=== PATIENT | female | born 1950 | race Caucasian/White ===

== ENCOUNTER 2017-06-25 10:49 | Emergency (ER) | payer BC ==
[2017-06-25] MEDS ORDERED: Sodium Chloride 0.9% 10 ML Syringe FLUSH PRN (11:02)
== END 2017-06-25 10:50 | disposition left against medical advice (07) ==
LOC: JD.ED 10:49
DX: Z53.21 Procedure and treatment not carried out due to patient leaving prior to being seen by health care provider (principal)
CPT/HCPCS: 36415; 70450; 70450-26; 80053; 83880; 85025; 86140; 87040; 93005

== ENCOUNTER 2017-06-25 10:50 | Inpatient (IN) | payer MEDICARE, OTHER ==
[2017-06-25] MEDS ORDERED: Sodium Chloride 0.9% 10 ML Syringe FLUSH PRN (11:15)
--- NOTE | 2017-06-25 11:19 | CT ---
Head CT Technique: Multiple axial sections through the brain were obtained. Intravenous contrast was not utilized. Comparison: No previous intracranial imaging. Findings: Ventricles along with basal cisterns and sulci over the convexities are within normal limits for the patient's age. Mild diminished density is noted within portions of the periventricular white matter which is compatible with small vessel ischemic demyelination change. No other abnormal parenchymal densities are seen. No evidence of intracranial hemorrhage. No midline shift or mass effect is seen. Atherosclerotic calcification is seen within the carotid siphon and within the vertebral vessels. Bone window settings shows the visualized sinuses to appear clear. No acute calvarial abnormality is seen. Impression: 1. Mild senescent change as noted above. Nothing acute is appreciated on noncontrast head CT exam. Diagnostic code #2
[2017-06-25] MEDS ORDERED: Diltiazem 25 MG/5 ML SDV IVPUSH ONE (11:35)
[2017-06-25] MEDS ORDERED: Acetaminophen 650 MG Supp RECTAL ONE (11:41)
[2017-06-25] MEDS ORDERED: cefTRIAXone 2 GM in Sodium Chloride 0.9% 100 ML IV ONE (11:42)
[2017-06-25] MEDS ORDERED: Sodium Chloride 0.9% 1,000 ML IV SCH (11:45)
--- NOTE | 2017-06-25 12:06 | EDM.PDOC ---
ED HPI GENERAL MEDICAL PROBLEM - General Chief Complaint: Neuro Symptoms/Deficits Stated Complaint: [facility] Time Seen by Provider: 06/25/17 11:13 Source of Information: Reports: EMS, Family (), RN Notes Reviewed - History of Present Illness INITIAL COMMENTS - FREE TEXT/NARRATIVE: 66 year old female brought to our ED by [facility] with fever, vomiting, confusion, agitation, concern for possible stroke. Her who has arrived a bit after her states that she became ill yesterday with nausea vomiting not able to eat or drink well. Then last evening she did start becoming confused and had a very restless fitful night. Those symptoms continued and worsened this morning. She has not been able to eat or drink today. On arrival to ED she has very high grade fever. He really is not sure when that started. There has been no diarrhea. The does not tell of her having had chest pain or difficulty breathing or any complaint of headache. He does state that she had similar symptoms about a year ago that resolved very quickly with medial treatment. Treatments PATHOLOGY TEACHER: Reports: Other (see below) Other Treatments PATHOLOGY TEACHER: fluids - Related Data Allergies Allergy/AdvReac Type Severity Reaction Status Date / Time atorvastatin [From Lipitor] Allergy Hives Verified 06/25/17 13:48 dipyridamole Allergy Anaphylactic Verified 06/25/17 13:48 [From Persantine] Shock isosorbide [From Imdur] Allergy Headache Verified 06/25/17 13:48 mold Allergy Airway Verified 06/25/17 13:48 Tightness morphine Allergy Nausea Verified 06/25/17 13:48 nitrofurantoin Allergy Diarrhea Verified 06/25/17 13:48 [From Macrodantin] omeprazole [From Prilosec] Allergy Chills Verified 06/25/17 13:48 Home Meds: Home Meds Albuterol [Proair HFA] 2 puff INH Q4HR PRN 06/25/17 [History] Aspirin 81 mg PO DAILY 06/25/17 [History] Citalopram Hydrobromide [Citalopram HBr] 20 mg PO DAILY 06/25/17 [History] Fluticasone/Salmeterol [Advair 500-50] 1 puff INH BID 06/25/17 [History] Gabapentin [Neurontin] 400 mg PO TID 06/25/17 [History] Hydrocodone/Acetaminophen [Hydrocodon-Acetaminophn 10-325] 1 tab PO Q8H PRN [History] Insulin Glargine,Hum.Rec.Anlog [Lantus Solostar] 16 units SUBCUT DAILY 06/25/17 [History] Insulin Lispro [Humalog Kwikpen U-100] 3 units SUBCUT TID 06/25/17 [History] Liraglutide [Victoza] 0.6 mg SUBCUT DAILY 06/25/17 [History] Lisinopril 20 mg PO DAILY 06/25/17 [History] Metoprolol Succinate 50 mg PO DAILY 06/25/17 [History] Mometasone Furoate [Nasonex] 1 applic CURT DAILY 06/25/17 [History] Montelukast Sodium 10 mg PO DAILY 06/25/17 [History] Omeprazole 20 mg PO DAILY 06/25/17 [History] Ondansetron [Zofran ODT] 4 mg PO Q3H PRN 06/25/17 [History] Triamterene/Hydrochlorothiazid [Triamterene-HCTZ 37.5-25 MG] 0.5 tab PO DAILY [History] amLODIPine Besylate [Amlodipine Besylate] 10 mg PO DAILY 06/25/17 [History] traZODone 100 mg PO DAILY 06/25/17 [History] Past Medical History HEENT History: Reports: Impaired Vision Other HEENT History: wears glasses Endocrine/Metabolic History: Reports: Other (See Below) Other Endocrine/Metabolic History: reported diabetic Social & Family History - Tobacco Use Smoking Status *Q: Unknown Ever Smoked ED ROS GENERAL - Review of Systems Review Of Systems: Unable To Obtain (what information we have is from EMS and from her ) ED EXAM, NEURO - Physical Exam Exam: See Below Exam Limited By: Altered Mental Status General Appearance: Mild Distress, Other (awake, confused) Eye Exam: Bilateral Eye: PERRL Nose: Normal Inspection Throat/Mouth: Other (oral mucosa mildly dry) Head Exam: Atraumatic. No: Facial Swelling Neck: Supple, Other (without JVD) Respiratory/Chest: No Respiratory Distress, Lungs Clear, Normal Breath Sounds. No: Rales, Rhonchi, Wheezing Cardiovascular: Tachycardia GI/Abdominal: Soft, Non-Tender. No: Guarding Neurological: No Motor/Sensory Deficits (she does move her upper and lower extrem, she withdraws both lower extrem to plantar stimulation, question mild L facial droop), Other (awake, does attempt to answer some questions but speech not recognizable at time of initial exam, did not follow commands) Back Exam: No: CVA Tenderness (L), CVA Tenderness (R) Extremities: Pedal Edema (mild bilat). No: Leg Pain, Increased Warmth, Redness Skin Exam: Warm, Dry, Normal Color EKG INTERPRETATION EKG Date: 06/25/17 Rhythm: A-Flutter (rate 132,apparent 2:1 block) QRS: Other (mild conduction delay) ST-T: Other (diffuse nonspecific ST changes) Course - Vital Signs Last Recorded V/S: Last Vital Signs Temp 98.3 F 06/25/17 15:25 Pulse 111 H 06/25/17 17:09 Resp 19 06/25/17 15:25 BP 124/81 06/25/17 17:09 Pulse Ox 91 L 06/25/17 15:25 - Orders/Labs/Meds Orders: Active Orders 24 hr Category Date Time Status Admission Status [Patient Status] [ADT] Routine ADT 06/25/17 14:13 Active EKG 12 Lead [EKG Documentation Completion] [RC] STAT Care 06/25/17 11:15 Active Peripheral IV Care [RC] Q2HR Care 06/25/17 11:15 Active CULTURE BLOOD [BC] Stat Lab 06/25/17 11:17 Ordered CULTURE BLOOD [BC] Stat Lab 06/25/17 11:40 Received CULTURE URINE [RM] Stat Lab 06/25/17 11:20 Received LORazepam [Ativan] Med 06/25/17 12:46 Active 2 mg IVPUSH Q4H PRN Magnesium Rep Pharmacy to Dose [Pharmacy to Dose - Med 06/25/17 13:00 Active Magnesium Replacement] 1 dose .XX ASDIRECTED Metoprolol Tartrate [Lopressor] Med 06/25/17 12:46 Active 5 mg IVPUSH Q4H PRN Potassium Rep Pharmacy to Dose [Pharmacy to Dose - Med 06/25/17 13:00 Active Potassium Replacement] 1 dose .XX ASDIRECTED Sodium Chloride 0.9% [Normal Saline] 1,000 ml Med 06/25/17 11:45 Active IV ONETIME Sodium Chloride 0.9% [Saline Flush] Med 06/25/17 11:15 Active 10 ml FLUSH ASDIRECTED PRN hydrALAZINE [Apresoline] Med 06/25/17 12:46 Active 20 mg IVPUSH Q4H PRN Peripheral IV Insertion Adult [OM.PC] Stat Oth 06/25/17 11:15 Ordered Medication Orders Acetaminophen (Tylenol) 650 mg PO Q4H PRN PRN Reason: Pain (Mild 1-3)/fever Albuterol/Ipratropium (Duoneb 3.0-0.5 Mg/3 Ml) 3 ml NEB Q4H PRN PRN Reason: Shortness Of Breath/wheezing Dextrose/Water (Dextrose 50% In Water) 50 ml IVPUSH ASDIRECTED PRN PRN Reason: Hypoglycemia Hydralazine HCl (Apresoline) 20 mg IVPUSH Q4H PRN PRN Reason: Hypertension Sodium Chloride (Normal Saline) 1,000 mls @ 999 mls/hr IV ONETIME [facility] Last Admin: 06/25/17 11:51 Dose: 999 mls/hr Ceftriaxone Sodium 2 gm/ (Sodium Chloride) 100 mls @ 100 mls/hr IV Q12H [facility] Potassium Chloride 10 meq/ (Premix) 100 mls @ 100 mls/hr IV Q1H [facility] Stop: 06/25/17 22:14 Last Infusion: 06/25/17 17:21 Dose: 50 mls/hr Infusion: 06/25/17 17:19 Dose: 75 mls/hr Admin: 06/25/17 17:13 Dose: 100 mls/hr Dexamethasone 36 mg/ Sodium (Chloride) 53.6 mls @ 107.2 mls/hr IV Q12HR [facility] Stop: 06/27/17 09:29 Vancomycin HCl 1 gm/Vancomycin HCl 250 mg/ Sodium Chloride 250 mls @ 250 mls/ hr IV Q24H [facility] Insulin Aspart (Novolog) 0 unit SUBCUT QIDACANDBED [facility] PRN Reason: Protocol Last Admin: 06/25/17 17:36 Dose: 1 unit Lorazepam (Ativan) 2 mg IVPUSH Q4H PRN PRN Reason: Seizures Magnesium Sulfate (Pharmacy To Dose - Magnesium Replacement) 1 dose .XX ASDIRECTED [facility] Metoprolol Tartrate (Lopressor) 5 mg IVPUSH Q4H PRN PRN Reason: Tachycardia Last Admin: 06/25/17 17:09 Dose: 5 mg Ondansetron HCl (Zofran Odt) 4 mg PO Q6H PRN PRN Reason: nausea, able to take PO Ondansetron HCl (Zofran) 4 mg IV Q6H PRN PRN Reason: Nausea/Vomiting Potassium Chloride (Pharmacy To Dose - Potassium Replacement) 1 dose .XX ASDIRECTED [facility] Sodium Chloride (Saline Flush) 10 ml FLUSH ASDIRECTED PRN PRN Reason: Keep Vein Open Last Admin: 06/25/17 11:52 Dose: 10 ml Vancomycin HCl (Pharmacy To Dose - Vancomycin) 1 dose .XX ASDIRECTED [facility] Labs: Laboratory Tests 06/25/17 06/25/17 06/25/17 Range/Units 11:18 11:18 11:18 WBC 19.73 H (3.98-10.04) K/mm3 RBC 5.09 (3.98-5.22) M/mm3 Hgb 15.0 (11.2-15.7) gm/L Hct 43.5 (34.1-44.9) % MCV 85.5 (79.4-94.8) fl MCH 29.5 (25.6-32.2) pg MCHC 34.5 (32.2-35.5) g/dl RDW Std Deviation 44.5 (36.4-46.3) fL Plt Count 406 H (182-369) K/mm3 MPV 11.6 (9.4-12.3) fl Neut % (Auto) 90.1 H (34.0-71.1) % Lymph % (Auto) 3.8 L (19.3-51.7) % [place] % (Auto) 5.9 (4.7-12.5) % Eos % (Auto) 0 L (0.7-5.8) Baso % (Auto) 0.2 (0.1-1.2) % Neut # (Auto) 17.79 H (1.56-6.13) K/mm3 Lymph # (Auto) 0.74 L (1.18-3.74) K/mm3 [place] # (Auto) 1.16 H (0.24-0.36) K/mm3 Eos # (Auto) 0.00 L (0.04-0.36) K/mm3 Baso # (Auto) 0.04 (0.01-0.08) K/mm3 Manual Slide Review Abnormal smear ESR (0-20) mm/hr Sodium 142 (136-145) mEq/L Potassium 2.7 L (3.5-5.1) mEq/L Chloride 104 (98-107) mEq/L Carbon Dioxide 26 (21-32) mEq/L Anion Gap 14.7 (5-15) BUN 13 (7-18) mg/dL Creatinine 1.2 H (0.55-1.02) mg/dL Est Cr Clr Drug Dosing 35.98 mL/min Estimated GFR (MDRD) 45 (>60) mL/min BUN/Creatinine Ratio 10.8 L (14-18) Glucose 216 H (80-115) mg/dL Hemoglobin A1c 6.50 H (4.50-6.20) % Lactic Acid (0.4-2.0) mmol/L Calcium 8.5 (8.5-10.1) mg/dL C-Reactive Protein (<1.0) mg/dL Free T4 1.52 H (0.76-1.46) ng/dL TSH 3rd Generation 0.153 L (0.358-3.74) uIU/mL Urine Color (Yellow) Urine Appearance (Clear) Urine pH (5.0-8.0) Ur Specific [place] (1.005-1.030) Urine Protein (Negative) Urine Glucose (UA) (Negative) Urine Ketones (Negative) Urine Occult Blood (Negative) Urine Nitrite (Negative) Urine Bilirubin (Negative) Urine Urobilinogen (0.2-1.0) Ur Leukocyte Esterase (Negative) Urine RBC (0-5) /hpf Urine WBC (0-5) /hpf Ur Epithelial Cells (0-5) /hpf Urine Bacteria (FEW) /hpf Urine Mucus (FEW) /hpf Urine Opiates Screen (NEGATIVE) Ur Buprenorphine Scrn (NEGATIVE) Ur Oxycodone Screen (NEGATIVE) Urine Methadone Screen (NEGATIVE) Ur Propoxyphene Screen (NEGATIVE) Ur Barbiturates Screen (NEGATIVE) Ur Tricyclics Screen (NEGATIVE) Ur Phencyclidine Scrn (NEGATIVE) Ur Amphetamine Screen (NEGATIVE) U Methamphetamines Scrn (NEGATIVE) U Benzodiazepines Scrn (NEGATIVE) U Cocaine Metab Screen (NEGATIVE) U Marijuana (THC) Screen (NEGATIVE) 06/25/17 06/25/17 06/25/17 Range/Units 11:18 11:18 11:20 WBC (3.98-10.04) K/mm3 RBC (3.98-5.22) M/mm3 Hgb (11.2-15.7) gm/L Hct (34.1-44.9) % MCV (79.4-94.8) fl MCH (25.6-32.2) pg MCHC (32.2-35.5) g/dl RDW Std Deviation (36.4-46.3) fL Plt Count (182-369) K/mm3 MPV (9.4-12.3) fl Neut % (Auto) (34.0-71.1) % Lymph % (Auto) (19.3-51.7) % [place] % (Auto) (4.7-12.5) % Eos % (Auto) (0.7-5.8) Baso % (Auto) (0.1-1.2) % Neut # (Auto) (1.56-6.13) K/mm3 Lymph # (Auto) (1.18-3.74) K/mm3 [place] # (Auto) (0.24-0.36) K/mm3 Eos # (Auto) (0.04-0.36) K/mm3 Baso # (Auto) (0.01-0.08) K/mm3 Manual Slide Review ESR 76 H (0-20) mm/hr Sodium (136-145) mEq/L Potassium (3.5-5.1) mEq/L Chloride (98-107) mEq/L Carbon Dioxide (21-32) mEq/L Anion Gap (5-15) BUN (7-18) mg/dL Creatinine (0.55-1.02) mg/dL Est Cr Clr Drug Dosing mL/min Estimated GFR (MDRD) (>60) mL/min BUN/Creatinine Ratio (14-18) Glucose (80-115) mg/dL Hemoglobin A1c (4.50-6.20) % Lactic Acid (0.4-2.0) mmol/L Calcium (8.5-10.1) mg/dL C-Reactive Protein 35.5 H* (<1.0) mg/dL Free T4 (0.76-1.46) ng/dL TSH 3rd Generation (0.358-3.74) uIU/mL Urine Color (Yellow) Urine Appearance (Clear) Urine pH (5.0-8.0) Ur Specific [place] (1.005-1.030) Urine Protein (Negative) Urine Glucose (UA) (Negative) Urine Ketones (Negative) Urine Occult Blood (Negative) Urine Nitrite (Negative) Urine Bilirubin (Negative) Urine Urobilinogen (0.2-1.0) Ur Leukocyte Esterase (Negative) Urine RBC (0-5) /hpf Urine WBC (0-5) /hpf Ur Epithelial Cells (0-5) /hpf Urine Bacteria (FEW) /hpf Urine Mucus (FEW) /hpf Urine Opiates Screen Negative (NEGATIVE) Ur Buprenorphine Scrn Negative (NEGATIVE) Ur Oxycodone Screen Presumptive positive H (NEGATIVE) Urine Methadone Screen Negative (NEGATIVE) Ur Propoxyphene Screen Negative (NEGATIVE) Ur Barbiturates Screen Negative (NEGATIVE) Ur Tricyclics Screen Negative (NEGATIVE) Ur Phencyclidine Scrn Negative (NEGATIVE) Ur Amphetamine Screen Negative (NEGATIVE) U Methamphetamines Scrn Negative (NEGATIVE) U Benzodiazepines Scrn Negative (NEGATIVE) U Cocaine Metab Screen Negative (NEGATIVE) U Marijuana (THC) Screen Negative (NEGATIVE) 06/25/17 06/25/17 Range/Units 11:36 11:40 WBC (3.98-10.04) K/mm3 RBC (3.98-5.22) M/mm3 Hgb (11.2-15.7) gm/L Hct (34.1-44.9) % MCV (79.4-94.8) fl MCH (25.6-32.2) pg MCHC (32.2-35.5) g/dl RDW Std Deviation (36.4-46.3) fL Plt Count (182-369) K/mm3 MPV (9.4-12.3) fl Neut % (Auto) (34.0-71.1) % Lymph % (Auto) (19.3-51.7) % [place] % (Auto) (4.7-12.5) % Eos % (Auto) (0.7-5.8) Baso % (Auto) (0.1-1.2) % Neut # (Auto) (1.56-6.13) K/mm3 Lymph # (Auto) (1.18-3.74) K/mm3 [place] # (Auto) (0.24-0.36) K/mm3 Eos # (Auto) (0.04-0.36) K/mm3 Baso # (Auto) (0.01-0.08) K/mm3 Manual Slide Review ESR (0-20) mm/hr Sodium (136-145) mEq/L Potassium (3.5-5.1) mEq/L Chloride (98-107) mEq/L Carbon Dioxide (21-32) mEq/L Anion Gap (5-15) BUN (7-18) mg/dL Creatinine (0.55-1.02) mg/dL Est Cr Clr Drug Dosing mL/min Estimated GFR (MDRD) (>60) mL/min BUN/Creatinine Ratio (14-18) Glucose (80-115) mg/dL Hemoglobin A1c (4.50-6.20) % Lactic Acid 2.0 (0.4-2.0) mmol/L Calcium (8.5-10.1) mg/dL C-Reactive Protein (<1.0) mg/dL Free T4 (0.76-1.46) ng/dL TSH 3rd Generation (0.358-3.74) uIU/mL Urine Color Yellow (Yellow) Urine Appearance Cloudy H (Clear) Urine pH 6.5 (5.0-8.0) Ur Specific [place] 1.025 (1.005-1.030) Urine Protein 2+ H (Negative) Urine Glucose (UA) Negative (Negative) Urine Ketones Negative (Negative) Urine Occult Blood 2+ H (Negative) Urine Nitrite Negative (Negative) Urine Bilirubin Negative (Negative) Urine Urobilinogen 1.0 (0.2-1.0) Ur Leukocyte Esterase Negative (Negative) Urine RBC 10-20 H (0-5) /hpf Urine WBC 50-75 H (0-5) /hpf Ur Epithelial Cells 0-5 (0-5) /hpf Urine Bacteria Many H (FEW) /hpf Urine Mucus Not seen (FEW) /hpf Urine Opiates Screen (NEGATIVE) Ur Buprenorphine Scrn (NEGATIVE) Ur Oxycodone Screen (NEGATIVE) Urine Methadone Screen (NEGATIVE) Ur Propoxyphene Screen (NEGATIVE) Ur Barbiturates Screen (NEGATIVE) Ur Tricyclics Screen (NEGATIVE) Ur Phencyclidine Scrn (NEGATIVE) Ur Amphetamine Screen (NEGATIVE) U Methamphetamines Scrn (NEGATIVE) U Benzodiazepines Scrn (NEGATIVE) U Cocaine Metab Screen (NEGATIVE) U Marijuana (THC) Screen (NEGATIVE) Meds: Medications Generic Name Dose Route Start Last Admin Trade Name Freq PRN Reason Stop Dose Admin Acetaminophen 650 mg 06/25/17 16:27 Tylenol PO Q4H PRN Pain (Mild 1-3)/fever Albuterol/Ipratropium 3 ml 06/25/17 16:27 Duoneb 3.0-0.5 Mg/3 Ml NEB Q4H PRN Shortness Of Breath/wheezing Dextrose/Water 50 ml 06/25/17 16:30 Dextrose 50% In Water IVPUSH ASDIRECTED PRN Hypoglycemia Hydralazine HCl 20 mg 06/25/17 12:46 Apresoline IVPUSH Q4H PRN Hypertension Sodium Chloride 1,000 mls @ 999 mls/hr 06/25/17 11:45 06/25/17 11:51 Normal Saline IV 999 mls/hr ONETIME [facility] Administration Ceftriaxone Sodium 2 gm/ 100 mls @ 100 mls/hr 06/25/17 21:00 Sodium Chloride IV Q12H [facility] Potassium Chloride 10 meq/ 100 mls @ 100 mls/hr 06/25/17 16:15 06/25/17 17:21 Premix IV 06/25/17 22:14 50 mls/hr Q1H [facility] Infusion Dexamethasone 36 mg/ Sodium 53.6 mls @ 107.2 mls/hr 06/25/17 21:00 Chloride IV 06/27/17 09:29 Q12HR [facility] Vancomycin HCl 1 gm/ 250 mls @ 250 mls/hr 06/26/17 16:00 Vancomycin HCl 250 mg/ Sodium IV Chloride Q24H [facility] Insulin Aspart 0 unit 06/25/17 17:00 06/25/17 17:36 Novolog SUBCUT 1 unit QIDACANDBED [facility] Administration Protocol Lorazepam 2 mg 06/25/17 12:46 Ativan IVPUSH Q4H PRN Seizures Magnesium Sulfate 1 dose 06/25/17 13:00 Pharmacy To Dose - Magnesium Replacement .XX ASDIRECTED [facility] Metoprolol Tartrate 5 mg 06/25/17 12:46 06/25/17 17:09 Lopressor IVPUSH 5 mg Q4H PRN Administration Tachycardia Ondansetron HCl 4 mg 06/25/17 16:27 Zofran Odt PO Q6H PRN nausea, able to take PO Ondansetron HCl 4 mg 06/25/17 16:27 Zofran IV Q6H PRN Nausea/Vomiting Potassium Chloride 1 dose 06/25/17 13:00 Pharmacy To Dose - Potassium Replacement .XX ASDIRECTED [facility] Sodium Chloride 10 ml 06/25/17 11:15 06/25/17 11:52 Saline Flush FLUSH 10 ml ASDIRECTED PRN Administration Keep Vein Open Vancomycin HCl 1 dose 06/25/17 16:00 Pharmacy To Dose - Vancomycin .XX ASDIRECTED [facility] Discontinued Medications Generic Name Dose Route Start Last Admin Trade Name Freq PRN Reason Stop Dose Admin Acetaminophen 650 mg 06/25/17 11:41 06/25/17 11:53 Tylenol RECTAL 06/25/17 11:42 650 mg NOW ONE Administration Dexamethasone 36 mg 06/25/17 21:00 Dexamethasone IVPUSH 06/28/17 09:00 Q12HR [facility] Diltiazem HCl 10 mg 06/25/17 11:35 06/25/17 11:51 Diltiazem IVPUSH 06/25/17 11:36 10 mg ONETIME ONE Administration Ceftriaxone Sodium 2 gm/ 100 mls @ 100 mls/hr 06/25/17 11:42 06/25/17 11:54 Sodium Chloride IV 06/25/17 12:41 100 mls/hr ONETIME ONE Administration Ceftriaxone Sodium 2 gm/ 100 mls @ 100 mls/hr 06/26/17 12:00 Sodium Chloride IV Q24H [facility] Vancomycin HCl 1 gm/ 500 mls @ 250 mls/hr 06/25/17 16:15 06/25/17 17:35 Vancomycin HCl 500 mg/ Sodium IV 06/25/17 18:14 250 mls/hr Chloride ONETIME ONE Administration Lorazepam 4 mg 06/25/17 15:41 06/25/17 16:00 Ativan IVPUSH 06/25/17 15:42 2 mg ONETIME ONE Administration - Re-Assessments/Exams Free Text/Narrative Re-Assessment/Exam: 06/25/17 12:05. More hx available when arrived as documented. He states she had similar illness with fever nausea vomiting confusion treated at [facility] that did resolve fairly quickly with medical treatment. It sounds like she started getting sick yesterday and then much worse during the night into this morning. Temp 104.2 on arrival. White blood count quite elevated, CRP also quite elevated. Other labs as documented. Catheter UA was done quite quickly after arrival revealing quite foul very concentrated urine. Presumptive diagnosis was pyelonephritis, rule out sepsis. She did get imediate head CT which was negative for stroke or other acute findings. Patient was treated with 1 L of IV fluid, blood cultures 2 were obtained, lactic acid came back 2.0. UA strongly positive for infection as expected. Rocephin 2 g IV was started shortly after patient arrival. She was given diltiazam 5 mg IV times 2 which did help slow her rate down to 115-120. She was given rectal tylenol for fever. I discussed this with Dr. Clay, Hospitalist who does accept patient for admission. He did initially want a spinal tap done but refuses to sign for that. He wants us to treat the bladder infection, pyelonephritis. He does not want the spinal tap to be done. He does understand that she is very seriously ill but does state repetitively that this is similar to the illness she had at [place], that she responded well to medical treatment provided at that time. He does not want her transferred to [facility]. 13:25. Patient is more alert, less confused, starting to answer some questions. Urine culture also has been ordered. 06/25/17 18:56 Departure - Departure Time of Disposition: 11:45 Disposition: Admitted As Inpatient 65 Condition: Serious Clinical Impression: Pyelonephritis Altered mental status Qualifiers: Altered mental status type: unspecified Qualified Code(s): R41.82 - Altered mental status, unspecified - Discharge Information ED Communication - Discussed Case With (1) Discussed Case With (1): Admitting Provider (Dr Clay, decision to admit at about 11:45) - My Orders Last 24 Hours: My Active Orders 06/25/17 11:15 EKG 12 Lead [EKG Documentation Completion] [RC] STAT Peripheral IV Care [RC] Q2HR Sodium Chloride 0.9% [Saline Flush] 10 ml FLUSH ASDIRECTED PRN Peripheral IV Insertion Adult [OM.PC] Stat 06/25/17 11:17 CULTURE BLOOD [BC] Stat 06/25/17 11:40 CULTURE BLOOD [BC] Stat 06/25/17 11:45 Sodium Chloride 0.9% [Normal Saline] 1,000 ml IV ONETIME 06/25/17 14:13 Admission Status [Patient Status] [ADT] Routine - Assessment/Plan Last 24 Hours: My Active Orders 06/25/17 11:15 EKG 12 Lead [EKG Documentation Completion] [RC] STAT Peripheral IV Care [RC] Q2HR Sodium Chloride 0.9% [Saline Flush] 10 ml FLUSH ASDIRECTED PRN Peripheral IV Insertion Adult [OM.PC] Stat 06/25/17 11:17 CULTURE BLOOD [BC] Stat 06/25/17 11:40 CULTURE BLOOD [BC] Stat 06/25/17 11:45 Sodium Chloride 0.9% [Normal Saline] 1,000 ml IV ONETIME 06/25/17 14:13 Admission Status [Patient Status] [ADT] Routine
--- NOTE | 2017-06-25 12:39 | CR ---
Chest: Frontal view of the chest was obtained. Comparison: No prior chest x-ray. Heart size is slightly enlarged. Tortuous thoracic aorta is seen. Atherosclerotic calcification is noted within the aortic knob. Lungs are clear. Bony structures are grossly intact. Impression: 1. Incidental findings. Nothing acute is seen on frontal chest x-ray. Diagnostic code #2
--- NOTE | 2017-06-25 12:45 | PCM.SN ---
- Free Text/Narrative Note: Patient seen and examined in ED with at bedside. She appeared severely confused and not able to follow simple commands. I expressed concern about meningo-encephalitis since its atypical for someone of her age to be severely encephalopathic with UTI alone. I requested an LP to be done prior to coming to the unit but her refused it. I made it clear to him that by refusing the test, I may not be able to appropriately treat his . also expressed understanding that patient may get worse clinically here and that I may not readily able to transfer her right away to [facility] for upper level of care. We will try to send her to Radiology for brain MRI before she goes to the unit.
[2017-06-25] MEDS ORDERED: LORazepam 2 MG/ML SDV IVPUSH PRN (12:46)
--- NOTE | 2017-06-25 15:15 | PCM.HP ---
H&P History of Present Illness - General Date of Service: 06/25/17 Admit Problem/Dx: Pyelonephritis Source of Information: Patient, EMS, Old Records, Provider, RN, Significant Other History Limitations: Reports: Altered Mental Status (confusion, however does move appropriately when asked. ) - History of Present Illness Initial Comments - Free Text/Narative: Noemi Willams is a 66 yo female presents for ED today via [facility] with complaints of fever, vomiting, confusion, agitation, concern for possible stroke. Her reports that she became ill yesterday with nausea and vomiting and has not been able to eat or drink well. Reports confusion started yesterday evening and she had a very restless night. She had little to eat or drink today. In the ED she's had a high-grade fever. Her is not sure when the fever started. There is been no diarrhea, chest pain, difficulty breathing, headache. reports that she's had similar symptoms about a year ago that resolved quickly with medical treatment at that time she was said to have a UTI. In the ED was 100.4 Fahrenheit. Pulse 132. Respirations 16. Blood pressure 162/105. Pulse ox 94%. 12-lead EKG is obtained which shows a flutter at a rate of 132 with an apparent 2-1 AV block. Also mild conduction delay and diffuse nonspecific ST changes noted. Labs are obtained: WBC is 19.73. Hemoglobin 15. Hematocrit 43.5. She was normocytic. Platelets are elevated at 104,000. Neutrophils are high at 90.1%. Sodium was 139. Potassium is very low at 2.8. Chloride 101. CO2 is 26. Anion gap 14.8. Glucose is 227. BUN is 13. Creatinine 1.2. EGFR is 45. Albumin is low at 2.7. Bilirubin is high at 2.0. Liver enzymes good with ALT at 19, AST at 26, alkaline phosphatase at 113. CRP was very high at 34.7. BNP was very high at 14,508. Lactic acid was 2.0. UA was obtained and had a cloudy appearance. Specific gravity was 1.35. Protein was noted to be 2+. A Harris was 2+. RBCs were 10-20. WBCs were 50- 75. There is many bacteria noted. Leukocyte esterase and nitrite were both negative. She was given 1 L fluid bolus. Blood cultures were obtained. 2 g IV Rocephin was started. A possible spinal tap was explored as symptoms may warrant this, however the refused. Has wants to treat for bladder infection and pyelonephritis as he states she's had this in the past with similar symptoms. Dr. Clay did discuss importance of this with the patient and her and they still refused. It was communicated that she could continue to get worse or need to be transferred to [place] without a spinal tap. Chest x-ray was obtained and interpreted by Dr. Littlejohn as "heart size slightly enlarged. Tortuous thoracic aorta seen. Atherosclerotic calcifications noted within the aortic knob. Lungs are clear. Bony structures are grossly intact." Head CT was obtained and interpeted by Dr. Littlejohn as "mild senescent change, nothing acute." She carries a history of: Fibromyalgia with chronic low back pain, type II DM on insulin, asthma, depression, anxiety, allergic rhinitis, HTN, obesity, obstructive sleep apneais reportedly intolerant of CPAP, chronic insomnia, history of coronary artery stenting, history of inguinal hernia repair on right side. She is a former smoker who quit in 1996. She is subsequently admitted to the ICU.She is a full code. Her PCP is Dr. Dmitriy Pedro in [place]. - Related Data Allergies/Adverse Reactions: Allergies Allergy/AdvReac Type Severity Reaction Status Date / Time atorvastatin [From Lipitor] Allergy Hives Verified 06/25/17 13:48 dipyridamole Allergy Anaphylactic Verified 06/25/17 13:48 [From Persantine] Shock isosorbide [From Imdur] Allergy Headache Verified 06/25/17 13:48 mold Allergy Airway Verified 06/25/17 13:48 Tightness morphine Allergy Nausea Verified 06/25/17 13:48 nitrofurantoin Allergy Diarrhea Verified 06/25/17 13:48 [From Macrodantin] omeprazole [From Prilosec] Allergy Chills Verified 06/25/17 13:48 Home Medications: Home Meds Albuterol [Proair HFA] 2 puff INH Q4HR PRN 06/25/17 [History] Aspirin 81 mg PO DAILY 06/25/17 [History] Citalopram Hydrobromide [Citalopram HBr] 20 mg PO DAILY 06/25/17 [History] Fluticasone/Salmeterol [Advair 500-50] 1 puff INH BID 06/25/17 [History] Gabapentin [Neurontin] 400 mg PO TID 06/25/17 [History] Hydrocodone/Acetaminophen [Hydrocodon-Acetaminophn 10-325] 1 tab PO Q8H PRN [History] Insulin Glargine,Hum.Rec.Anlog [Lantus Solostar] 16 units SUBCUT DAILY 06/25/17 [History] Insulin Lispro [Humalog Kwikpen U-100] 3 units SUBCUT TID 06/25/17 [History] Liraglutide [Victoza] 0.6 mg SUBCUT DAILY 06/25/17 [History] Lisinopril 20 mg PO DAILY 06/25/17 [History] Metoprolol Succinate 50 mg PO DAILY 06/25/17 [History] Mometasone Furoate [Nasonex] 1 applic CURT DAILY 06/25/17 [History] Montelukast Sodium 10 mg PO DAILY 06/25/17 [History] Omeprazole 20 mg PO DAILY 06/25/17 [History] Ondansetron [Zofran ODT] 4 mg PO Q3H PRN 06/25/17 [History] Triamterene/Hydrochlorothiazid [Triamterene-HCTZ 37.5-25 MG] 0.5 tab PO DAILY [History] amLODIPine Besylate [Amlodipine Besylate] 10 mg PO DAILY 06/25/17 [History] traZODone 100 mg PO DAILY 06/25/17 [History] Past Medical History HEENT History: Reports: Impaired Vision Other HEENT History: wears glasses Endocrine/Metabolic History: Reports: Other (See Below) Other Endocrine/Metabolic History: reported diabetic Social & Family History - Tobacco Use Smoking Status *Q: Unknown Ever Smoked H&P Review of Systems - Review of Systems: Review Of Systems: See Below General: Reports: Fever, Chills, Weakness, Fatigue HEENT: Reports: No Symptoms. Denies: Ear Pain, Eye Pain, Headaches, Post Nasal Drip, Sore Throat, Visual Changes Pulmonary: Reports: No Symptoms. Denies: Shortness of Breath, Wheezing, Pleuritic Chest Pain, Cough, Sputum Cardiovascular: Reports: No Symptoms. Denies: Chest Pain, Palpitations, Dyspnea on Exertion Gastrointestinal: Reports: No Symptoms. Denies: Abdominal Pain, Constipation, Diarrhea, Vomiting Genitourinary: Reports: Other (Foul-smelling urine). Denies: Dysuria, Frequency , Burning, Pain, Urgency Musculoskeletal: Reports: Back Pain (Chronic). Denies: Neck Pain, Shoulder Pain , Arm Pain, Leg Pain, Foot Pain Skin: Reports: No Symptoms Psychiatric: Reports: Confusion Neurological: Reports: Confusion. Denies: Headache, Numbness, Paresthesia, Pre- Existing Deficit, Trouble Speaking, Weakness Hematologic/Lymphatic: Reports: No Symptoms Immunologic: Reports: No Symptoms Exam - Exam Exam: See Below - Vital Signs Vital Signs: Last Vital Signs Temp 104.4 F H 06/25/17 11:53 Pulse 132 H 06/25/17 11:29 Resp 16 06/25/17 11:29 BP 162/105 H 06/25/17 11:29 Pulse Ox 94 L 06/25/17 11:29 Weight: 200 lb - Exam Quality Assessment: Other (obease) General: Alert, Cooperative, Mild Distress. No: Oriented HEENT: Conjunctiva Clear, EACs Clear, EOMI, Hearing Intact, Mucosa Moist & [place] , Nares Patent, Normal Nasal Septum, Posterior Pharynx Clear, Pupils Equal, Pupils Reactive, TMs Clear Neck: Supple, Trachea Midline. No: JVD, Thyromegaly Lungs: Clear to Auscultation, Normal Respiratory Effort, Decreased Breath Sounds. No: Rhonchi, Wheezing Cardiovascular: Irregular Rhythm, Tachycardia. No: Regular Rate GI/Abdominal Exam: Normal Bowel Sounds, Soft, Non-Tender, No Organomegaly, No Distention, No Abnormal Bruit, No Mass, Pelvis Stable (Female) Exam: Deferred Rectal (Female) Exam: Deferred Back Exam: Normal Inspection, Decreased Range of Motion. No: CVA Tenderness (L) , CVA Tenderness (R) Extremities: Normal Inspection, Normal Range of Motion, Non-Tender, No Pedal Edema, Normal Capillary Refill, Pedal Edema (trace) Peripheral Pulses: 1+: Posterior Tibial (L), Posterior Tibial (R), Dorsalis Pedis (L), Dorsalis Pedis (R), 2+: Radial (L), Radial (R) Skin: Warm, Dry, Intact Neurological: Cranial Nerves Intact, Strength Equal Bilateral, Sensation Intact Neuro Extensive - Mental Status: Alert Neuro Extensive - Motor, Sensory, Reflexes: Other (Negative Brudzinski and kernig sign ). No: Tongue Deviation (L), Tongue Deviation (R), Dysarthria, Total Aphasia, Facial palsy (L), Facial Palsy (R), Hemeplagia (R), Hemeplagia (L ), Abnormal Sensation, Tremor, Motor/Sensory Deficits Psychiatric: Alert, Normal Affect, Normal Mood - Patient Data Result Diagrams: 06/25/17 11:18 06/25/17 11:18 *Q Meaningful Use (ADM) - VTE *Q VTE Criteria *Q: - Stroke *Q Stroke Criteria *Q: - AMI *Q AMI Criteria *Q: - Problem List (1) Fever SNOMED Code(s): 957632063 ICD Code: R50.9 - FEVER, UNSPECIFIED Status: Acute Priority: High Current Visit: Yes Qualifiers: Fever type: due to other condition Qualified Code(s): R50.81 - Fever presenting with conditions classified elsewhere (2) UTI (urinary tract infection) SNOMED Code(s): 41967531 ICD Code: N39.0 - URINARY TRACT INFECTION, SITE NOT SPECIFIED Status: Acute Priority: High Current Visit: Yes Qualifiers: Urinary tract infection type: acute cystitis Hematuria presence: without hematuria Qualified Code(s): N30.00 - Acute cystitis without hematuria (3) Altered mental status SNOMED Code(s): 772276920 ICD Code: R41.82 - ALTERED MENTAL STATUS, UNSPECIFIED Status: Acute Priority: High Current Visit: Yes Qualifiers: Altered mental status type: unspecified Qualified Code(s): R41.82 - Altered mental status, unspecified (4) Type II diabetes mellitus SNOMED Code(s): 94547961 ICD Code: E11.9 - TYPE 2 DIABETES MELLITUS WITHOUT COMPLICATIONS Status: Chronic Priority: Medium Current Visit: Yes Qualifiers: Diabetes mellitus complication status: without complication Diabetes mellitus usp insulin use: with usp use Qualified Code(s): E11.9 - Type 2 diabetes mellitus without complications; Z79.4 - intermediate project manager (current) use of insulin; Z79.4 - intermediate project manager (current) use of insulin; Z79.4 - intermediate project manager ( current) use of insulin; Z79.4 - [facility] (current) use of insulin (5) Fibromyalgia SNOMED Code(s): 647705335 ICD Code: M79.7 - FIBROMYALGIA Status: Chronic Priority: Low Current Visit: No (6) Asthma SNOMED Code(s): 403553524 ICD Code: J45.909 - UNSPECIFIED ASTHMA, UNCOMPLICATED Status: Chronic Priority: Medium Current Visit: No Qualifiers: Asthma severity: unspecified severity Asthma persistence: unspecified Asthma complication type: unspecified Qualified Code(s): J45.909 - Unspecified asthma, uncomplicated (7) Other specified depressive episodes SNOMED Code(s): 61105581 ICD Code: F32.89 - OTHER SPECIFIED DEPRESSIVE EPISODES Status: Chronic Priority: Low Current Visit: No (8) Anxiety SNOMED Code(s): 92930056 ICD Code: F41.9 - ANXIETY DISORDER, UNSPECIFIED Status: Chronic Priority : Medium Current Visit: No (9) HTN (hypertension) SNOMED Code(s): 48744879 ICD Code: I10 - ESSENTIAL (PRIMARY) HYPERTENSION Status: Chronic Priority : Medium Current Visit: No Qualifiers: Hypertension type: unspecified Qualified Code(s): I10 - Essential (primary ) hypertension (10) Obesity (BMI 30-39.9) SNOMED Code(s): 842437869 ICD Code: E66.9 - OBESITY, UNSPECIFIED Status: Chronic Priority: Low Current Visit: No (11) GURVINDER (obstructive sleep apnea) SNOMED Code(s): 52365252 ICD Code: G47.33 - OBSTRUCTIVE SLEEP APNEA (ADULT) (PEDIATRIC) Status: Chronic Priority: Low Current Visit: No (12) Insomnia SNOMED Code(s): 788786722 ICD Code: G47.00 - INSOMNIA, UNSPECIFIED Status: Chronic Priority: Low Current Visit: No Qualifiers: Insomnia type: unspecified Qualified Code(s): G47.00 - Insomnia, unspecified (13) Elevated brain natriuretic peptide (BNP) level SNOMED Code(s): 184605307 ICD Code: R79.89 - OTHER SPECIFIED ABNORMAL FINDINGS OF BLOOD CHEMISTRY Status: Acute Current Visit: Yes Problem List Initiated/Reviewed/Updated: Yes Orders Last 24hrs: Active Orders 24 hr Category Date Time Status A1C [GLYCOSYLATED HEMOGLOBIN,HGBA1C] [CHEM] Routine Lab 06/25/17 11:18 Received DRUG SCREEN, URINE [URCHEM] Routine Lab 06/25/17 14:36 Ordered RESPIRATORY PANEL BY PCR [MREF] Stat Lab 06/25/17 14:37 Ordered Medication Orders Hydralazine HCl (Apresoline) 20 mg IVPUSH Q4H PRN PRN Reason: Hypertension Sodium Chloride (Normal Saline) 1,000 mls @ 999 mls/hr IV ONETIME KVNG Last Admin: 06/25/17 11:51 Dose: 999 mls/hr Lorazepam (Ativan) 2 mg IVPUSH Q4H PRN PRN Reason: Seizures Magnesium Sulfate (Pharmacy To Dose - Magnesium Replacement) 1 dose .XX ASDIRECTED [facility] Metoprolol Tartrate (Lopressor) 5 mg IVPUSH Q4H PRN PRN Reason: Tachycardia Potassium Chloride (Pharmacy To Dose - Potassium Replacement) 1 dose .XX ASDIRECTED [facility] Sodium Chloride (Saline Flush) 10 ml FLUSH ASDIRECTED PRN PRN Reason: Keep Vein Open Last Admin: 06/25/17 11:52 Dose: 10 ml Assessment/Plan Comment:: I/P: UTI -History of 4 UTIs over past 3 years - last 12/16/16 and was hospitalized in [place] -Similar symptoms with all episodes per -Fever (104.4), confusion, agitation, foul smelling urine, Tachycardia -Rocephin started in ED - continue -UA not very impressive, Negative leukocyte esterase, nitrite. -Many bacteria - culture ordered -No costophrenic angle tenderness -WBC 19.50, CRP 34.7 AMS - reports worsening confusion and concern over possible stroke over past day - also reports pt. has hx/o AMS with prior UTIs -CT in ED negative for acute findings -MRI ordered for 06/26/17 -? UTI symptoms vs. meningococcal encephalopathy - refused LP in ED -Will order viral/bacterial/fungal workup -Culture blood, culture urine, group B strep, herpes screen, RPR, respiratory panel, strep pneumonia, toxoplasma gondii -Nursing bedside swallow screen -NETWORKING TECHNICIAN swallow evaluation -Rocephin and vancomycin -Contact precautions -NPO for now untill swallow eval/mentation improves -Dexamethasone Renal insufficiency -Unsure of baseline -Creatinine 1.2 -BUN 13 -eGFR 45 -Caution with nephrotoxic medications Elevated BNP -Does not appear to have CHF history although on lasix for edema per old notes -BNP 10110 in ED -Diurese with caution due to renal insufficiency -Echo in AM -Monitor Chronic: Fibromyalgia Chronic low back pain Type II DM on insulin- continue home meds, sliding scale insulin, 4 times a day before meals and bedtime glucose checks. Asthma Depression Anxiety HTN Obesity GURVINDER - does not tolerate CPAP Insomnia CAD with hx/o stenting Right sided inguinal hernia repair Plan: Admit to ICU Other orders as indicated above CM for discharge planning Home medications as ordered pending swallow evals Routine AM labs Hold off PT/OT for now until lab results return/mentation improves DVT Prophylaxis: NAHED glass Code Status: Full code; PCP: Dr. Pedro in [place].
[2017-06-25] MEDS ORDERED: LORazepam 2 MG/ML SDV IVPUSH ONE (15:41)
[2017-06-25] MEDS ORDERED: Vancomycin 1 GM, Vancomycin 500 MG in Sodium Chloride 0.9% 500 ML IV ONE (16:15)
[2017-06-25] MEDS ORDERED: Albuterol/Ipratropium 3.0-0.5 MG/3 ML Neb Soln NEB PRN (16:27)
[2017-06-25] MEDS ORDERED: Acetaminophen 325 MG Tab PO PRN (16:27)
[2017-06-25] MEDS ORDERED: Ondansetron 4 MG Tab.DIS PO PRN (16:27)
[2017-06-25] MEDS ORDERED: Ondansetron 4 MG/2 ML SDV IV PRN (16:27)
[2017-06-25] MEDS ORDERED: 50% Dextrose in Water 50 ML Syringe IVPUSH PRN (16:30)
[2017-06-25] MEDS: Metoprolol Tartrate 5 MG/5 ML SDV IVPUSH PRN ×2 (17:09→21:10)
[2017-06-25] MEDS: Potassium Chloride 10 MEQ in Premix Bag 1 BAG IV SCH ×6 (17:13→23:17)
[2017-06-25] MEDS: Insulin Aspart 100 Units/ML 3 ML Pen SUBCUT SCH ×2 (17:36→21:49)
[2017-06-25] MEDS ORDERED: Acetaminophen 650 MG Supp RECTAL PRN (19:47)
[2017-06-25] MEDS: LORazepam 2 MG/ML SDV IVPUSH PRN (20:30)
[2017-06-25] MEDS: cefTRIAXone 2 GM in Sodium Chloride 0.9% 100 ML IV SCH (20:36)
[2017-06-25] MEDS ORDERED: methylPREDNISolone Sodium Succinate 125 MG/2 ML SDV IVPUSH ONE (20:43)
[2017-06-25] MEDS ORDERED: Magnesium Sulfate/Water 2 GM in Premix Bag 1 BAG IV ONE (20:46)
[2017-06-25] MEDS ORDERED: Diltiazem 125 MG in Sodium Chloride 0.9% 100 ML IV SCH (21:00)
[2017-06-25] MEDS ORDERED: Non-Formulary Medication 1 Each (Fluticasone/Salmeterol 1 PUFF) INH SCH (21:00)
[2017-06-25] MEDS ORDERED: Dexamethasone 10 MG/ML SDV IVPUSH SCH (21:00)
[2017-06-25] MEDS ORDERED: INSULIN LISPRO 3 UNIT SUBCUT SCH (21:00)
[2017-06-25] MEDS: SODIUM CHLORIDE 0.9% IV SCH (21:08)
[2017-06-25] MEDS: DEXAMETHASONE IV SCH (21:08)
[2017-06-25] MEDS ORDERED: Insulin Aspart 100 Units/ML 3 ML Pen SUBCUT SCH (21:45)
[2017-06-25] MEDS ORDERED: Furosemide 20 MG/2 ML VIAL IVPUSH ONE (22:10)
[2017-06-25] MEDS: Formoterol/Mometasone 200-5 MCG 8.8 GM Inhaler IH SCH (23:56)
[2017-06-26] MEDS: LORazepam 2 MG/ML SDV IVPUSH PRN ×3 (00:30→21:51)
[2017-06-26] MEDS ORDERED: methylPREDNISolone Sodium Succinate 125 MG/2 ML SDV IVPUSH SCH (02:00)
[2017-06-26] MEDS: hydrALAZINE 20 MG/ML SDV IVPUSH PRN ×2 (04:28→10:12)
[2017-06-26] MEDS: Formoterol/Mometasone 200-5 MCG 8.8 GM Inhaler IH SCH ×2 (05:48→21:00)
[2017-06-26] MEDS: Insulin Aspart 100 Units/ML 3 ML Pen SUBCUT SCH ×4 (06:25→21:20)
[2017-06-26] MEDS ORDERED: Diphtheria,Pertussis(Acell),Tetanus Vaccine 0.5 ML SDV IM ONE (07:19)
[2017-06-26] MEDS: Potassium Chloride 10 MEQ in Premix Bag 1 BAG IV SCH ×4 (07:46→13:55)
[2017-06-26] MEDS ORDERED: Piperacillin/Tazobactam 4.5 GM in Sodium Chloride 0.9% 100 ML IV ONE (08:00)
--- NOTE | 2017-06-26 08:03 | PCM.PN ---
- General Info Date of Service: 06/26/17 Admission Dx/Problem (Free Text): Pyelonephritis Subjective Update: In to see Noemi. She is alert but not responding to me. She is also quite warm. Her blood cultures came back 07/17 with gram negative rods. Her urine shows gram negative rods also. She was sent to MRI today and sedated for the procedure. No results yet. She does not respond to questions or allow for examination. Will add zosyn to regimen. Awaiting multiple lab results. She did have a episode of hypoxia/low oxygen saturations last night. This has resolved. She also had a period of tachycardia and was started on a Cardizem drip. This has since resolved as well. Functional Status: Reports: Urinating - Review of Systems Systems Review Comment:: Patient is alert however does not respond to my questions or exam. She does feel warm to touch. She has a much more pronounced altered mental status than on my examination yesterday. Did talk with and he has nothing to add. Unable to obtain a review of systems from the patient. - Patient Data Vitals - Most Recent: Last Vital Signs Temp 98.4 F 06/26/17 06:00 Pulse 115 H 06/26/17 06:47 Resp 33 H 06/26/17 06:00 BP 143/89 H 06/26/17 06:47 Pulse Ox 94 L 06/26/17 06:00 Weight - Most Recent: 223 lb I&O - Last 24 Hours: Intake & Output 06/25/17 06/26/17 06/26/17 22:59 06:59 14:59 Intake Total 1075 0 Output Total 345 1525 95 Balance -345 -450 -95 Lab Results Last 24 Hours: Laboratory Results - last 24 hr 06/25/17 06/25/17 06/26/17 Range/Units 17:27 21:35 05:46 WBC 22.15 H (3.98-10.04) K/mm3 RBC 5.11 (3.98-5.22) M/mm3 Hgb 14.5 (11.2-15.7) gm/L Hct 44.0 (34.1-44.9) % MCV 86.1 (79.4-94.8) fl MCH 28.4 (25.6-32.2) pg MCHC 33.0 (32.2-35.5) g/dl RDW Std Deviation 45.5 (36.4-46.3) fL Plt Count 278 (182-369) K/mm3 MPV 11.9 (9.4-12.3) fl Neut % (Auto) 94.9 H (34.0-71.1) % Lymph % (Auto) 3.4 L (19.3-51.7) % [place] % (Auto) 1.1 L (4.7-12.5) % Eos % (Auto) 0 L (0.7-5.8) Baso % (Auto) 0.2 (0.1-1.2) % Neut # (Auto) 21.03 H (1.56-6.13) K/mm3 Lymph # (Auto) 0.75 L (1.18-3.74) K/mm3 [place] # (Auto) 0.25 (0.24-0.36) K/mm3 Eos # (Auto) 0.00 L (0.04-0.36) K/mm3 Baso # (Auto) 0.04 (0.01-0.08) K/mm3 Manual Slide Review Abnormal smear Sodium (136-145) mEq/L Potassium (3.5-5.1) mEq/L Chloride (98-107) mEq/L Carbon Dioxide (21-32) mEq/L Anion Gap (5-15) BUN (7-18) mg/dL Creatinine (0.55-1.02) mg/dL Est Cr Clr Drug Dosing mL/min Estimated GFR (MDRD) (>60) mL/min BUN/Creatinine Ratio (14-18) Glucose (80-115) mg/dL POC Glucose 169 H 194 H (80-115) mg/dL Calcium (8.5-10.1) mg/dL Magnesium (1.8-2.4) mg/dl C-Reactive Protein (<1.0) mg/dL NT-Pro-B Natriuret Pep (0-125) pg/mL 06/26/17 06/26/17 06/26/17 Range/Units 05:46 05:46 06:15 WBC (3.98-10.04) K/mm3 RBC (3.98-5.22) M/mm3 Hgb (11.2-15.7) gm/L Hct (34.1-44.9) % MCV (79.4-94.8) fl MCH (25.6-32.2) pg MCHC (32.2-35.5) g/dl RDW Std Deviation (36.4-46.3) fL Plt Count (182-369) K/mm3 MPV (9.4-12.3) fl Neut % (Auto) (34.0-71.1) % Lymph % (Auto) (19.3-51.7) % [place] % (Auto) (4.7-12.5) % Eos % (Auto) (0.7-5.8) Baso % (Auto) (0.1-1.2) % Neut # (Auto) (1.56-6.13) K/mm3 Lymph # (Auto) (1.18-3.74) K/mm3 [place] # (Auto) (0.24-0.36) K/mm3 Eos # (Auto) (0.04-0.36) K/mm3 Baso # (Auto) (0.01-0.08) K/mm3 Manual Slide Review Sodium 141 (136-145) mEq/L Potassium 3.4 L (3.5-5.1) mEq/L Chloride 104 (98-107) mEq/L Carbon Dioxide 20 L (21-32) mEq/L Anion Gap 20.4 H (5-15) BUN 19 H (7-18) mg/dL Creatinine 1.3 H (0.55-1.02) mg/dL Est Cr Clr Drug Dosing 33.21 mL/min Estimated GFR (MDRD) 41 (>60) mL/min BUN/Creatinine Ratio 14.6 (14-18) Glucose 307 H (80-115) mg/dL POC Glucose 260 H (80-115) mg/dL Calcium 8.7 (8.5-10.1) mg/dL Magnesium 2.5 H (1.8-2.4) mg/dl C-Reactive Protein 43.7 H* (<1.0) mg/dL NT-Pro-B Natriuret Pep 45695 H (0-125) pg/mL Terry Results Last 24 Hours: Microbiology 06/26/17 05:46 Aerobic Blood Culture - Preliminary Blood - Venous Anaerobic Blood Culture - Preliminary Med Orders - Current: Current Medications Acetaminophen (Tylenol) 650 mg RECTAL Q4H PRN PRN Reason: Fever/pain (1-3) Albuterol/Ipratropium (Duoneb 3.0-0.5 Mg/3 Ml) 3 ml NEB Q4H PRN PRN Reason: Shortness Of Breath/wheezing Last Admin: 06/25/17 20:00 Dose: 3 ml Dextrose/Water (Dextrose 50% In Water) 50 ml IVPUSH ASDIRECTED PRN PRN Reason: Hypoglycemia Hydralazine HCl (Apresoline) 20 mg IVPUSH Q4H PRN PRN Reason: Hypertension Last Admin: 06/26/17 04:28 Dose: 20 mg Sodium Chloride (Normal Saline) 1,000 mls @ 999 mls/hr IV ONETIME KVNG Last Admin: 06/25/17 11:51 Dose: 999 mls/hr Ceftriaxone Sodium 2 gm/ (Sodium Chloride) 100 mls @ 100 mls/hr IV Q12H KVNG Last Admin: 06/25/17 20:36 Dose: 100 mls/hr Dexamethasone 36 mg/ Sodium (Chloride) 53.6 mls @ 107.2 mls/hr IV Q12HR KVNG Stop: 06/27/17 09:29 Last Admin: 06/25/17 21:08 Dose: 107.2 mls/hr Vancomycin HCl 1 gm/Vancomycin HCl 250 mg/ Sodium Chloride 250 mls @ 250 mls/ hr IV Q24H KVNG Diltiazem HCl 125 mg/ Sodium (Chloride) 125 mls @ 5 mls/hr IV TITRATE KVNG; 5 MG /HR PRN Reason: Protocol Last Titration: 06/26/17 05:07 Dose: 10 mg/hr, 10 mls/hr Potassium Chloride 10 meq/ (Premix) 100 mls @ 100 mls/hr IV Q1H KVNG Stop: 06/26/17 11:29 Last Admin: 06/26/17 07:46 Dose: 100 mls/hr Piperacillin Sod/Tazobactam (Sod 4.5 gm/ Sodium Chloride) 100 mls @ 200 mls/hr IV ONETIME ONE Stop: 06/26/17 08:29 Insulin Aspart (Novolog) 0 unit SUBCUT QIDACANDBED KVNG PRN Reason: Protocol Last Admin: 06/26/17 06:25 Dose: 2 unit Lisinopril (Prinivil) 20 mg PO DAILY KVNG Lorazepam (Ativan) 2 mg IVPUSH Q4H PRN PRN Reason: Seizures Lorazepam (Ativan) 1 mg IVPUSH Q4H PRN PRN Reason: Anxiety Last Admin: 06/26/17 00:30 Dose: 1 mg Magnesium Sulfate (Pharmacy To Dose - Magnesium Replacement) 1 dose .XX ASDIRECTED [facility] Metoprolol Tartrate (Lopressor) 5 mg IVPUSH Q4H PRN PRN Reason: Tachycardia Last Admin: 06/25/17 21:10 Dose: 5 mg Mometasone Furoate/Formoterol Fumar (Dulera 200-5 Mcg) 2 puff IH BIDRT [facility] Last Admin: 06/26/17 05:48 Dose: Not Given Ondansetron HCl (Zofran Odt) 4 mg PO Q6H PRN PRN Reason: nausea, able to take PO Ondansetron HCl (Zofran) 4 mg IV Q6H PRN PRN Reason: Nausea/Vomiting (Liraglutide 0.6 Mg) (Victoza) 0 each SUBCUT DAILY [facility] Potassium Chloride (Pharmacy To Dose - Potassium Replacement) 1 dose .XX ASDIRECTED [facility] Sodium Chloride (Saline Flush) 10 ml FLUSH ASDIRECTED PRN PRN Reason: Keep Vein Open Last Admin: 06/25/17 11:52 Dose: 10 ml Vancomycin HCl (Pharmacy To Dose - Vancomycin) 1 dose .XX ASDIRECTED [facility] Discontinued Medications Acetaminophen (Tylenol) 650 mg RECTAL NOW ONE Stop: 06/25/17 11:42 Last Admin: 06/25/17 11:53 Dose: 650 mg Acetaminophen (Tylenol) 650 mg PO Q4H PRN PRN Reason: Pain (Mild 1-3)/fever Dexamethasone (Dexamethasone) 36 mg IVPUSH Q12HR [facility] Stop: 06/28/17 09:00 Diltiazem HCl (Diltiazem) 10 mg IVPUSH ONETIME ONE Stop: 06/25/17 11:36 Last Admin: 06/25/17 11:51 Dose: 10 mg Diphtheria/Tetanus/Acell Pertussis (Adacel) 0.5 ml IM .ONCE ONE Stop: 06/26/17 07:20 Furosemide (Lasix) 10 mg IVPUSH NOW ONE Stop: 06/25/17 22:11 Last Admin: 06/25/17 23:01 Dose: 10 mg Ceftriaxone Sodium 2 gm/ (Sodium Chloride) 100 mls @ 100 mls/hr IV ONETIME ONE Stop: 06/25/17 12:41 Last Admin: 06/25/17 11:54 Dose: 100 mls/hr Ceftriaxone Sodium 2 gm/ (Sodium Chloride) 100 mls @ 100 mls/hr IV Q24H [facility] Vancomycin HCl 1 gm/Vancomycin HCl 500 mg/ Sodium Chloride 500 mls @ 250 mls/ hr IV ONETIME ONE Stop: 06/25/17 18:14 Last Admin: 06/25/17 17:35 Dose: 250 mls/hr Potassium Chloride 10 meq/ (Premix) 100 mls @ 100 mls/hr IV Q1H [facility] Stop: 06/25/17 22:14 Last Admin: 06/25/17 23:17 Dose: 100 mls/hr Magnesium Sulfate 2 gm/ Premix 50 mls @ 25 mls/hr IV ONETIME ONE Stop: 06/25/17 22:45 Last Admin: 06/25/17 21:31 Dose: 25 mls/hr Insulin Aspart (Novolog) 3 unit SUBCUT TIDAC [facility] Lorazepam (Ativan) 4 mg IVPUSH ONETIME ONE Stop: 06/25/17 15:42 Last Admin: 06/25/17 16:00 Dose: 2 mg Methylprednisolone Sodium Succinate (Solu-Medrol) 125 mg IVPUSH ONETIME ONE Stop: 06/25/17 20:44 Last Admin: 06/25/17 23:45 Dose: Not Given Methylprednisolone Sodium Succinate (Solu-Medrol) 125 mg IVPUSH Q6H [facility] Non-Formulary Medication (Insulin Glargine,Hum.Rec.Anlog) 16 units SUBCUT DAILY KVNG - Exam Quality Assessment: Supplemental Oxygen, Urine Catheter, DVT Prophylaxis General: Alert, Moderate Distress (Non-purposeful movements ), Lethargic HEENT: Pupils Equal, Pupils Reactive, EOMI, Mucous Membr. Moist/[place] Neck: Supple, Trachea Midline Lungs: Normal Respiratory Effort, Decreased Breath Sounds Cardiovascular: Regular Rate, Regular Rhythm GI/Abdominal Exam: Normal Bowel Sounds, Soft, Non-Tender, No Organomegaly, No Distention, No Abnormal Bruit, No Mass, Pelvis Stable (Female) Exam: Deferred Extremities: Normal Inspection, Normal Range of Motion, Non-Tender, No Pedal Edema, Normal Capillary Refill Peripheral Pulses: 3+: Radial (L), Radial (R), Posterior Tibial (L), Posterior Tibial (R), Dorsalis Pedis (L), Dorsalis Pedis (R) Skin: Warm, Intact, Other (Diaphoretic) Psy/Mental Status: Alert, Other (non-responsive to questions and exam ) - Problem List & Annotations (1) Fever SNOMED Code(s): 115471648 Code(s): R50.9 - FEVER, UNSPECIFIED Status: Acute Priority: High Current Visit: Yes Qualifiers: Fever type: due to other condition Qualified Code(s): R50.81 - Fever presenting with conditions classified elsewhere (2) UTI (urinary tract infection) SNOMED Code(s): 53929740 Code(s): N39.0 - URINARY TRACT INFECTION, SITE NOT SPECIFIED Status: Acute Priority: High Current Visit: Yes Qualifiers: Urinary tract infection type: acute cystitis Hematuria presence: without hematuria Qualified Code(s): N30.00 - Acute cystitis without hematuria (3) Altered mental status SNOMED Code(s): 582186425 Code(s): R41.82 - ALTERED MENTAL STATUS, UNSPECIFIED Status: Acute Priority: High Current Visit: Yes Qualifiers: Altered mental status type: unspecified Qualified Code(s): R41.82 - Altered mental status, unspecified (4) Type II diabetes mellitus SNOMED Code(s): 21053598 Code(s): E11.9 - TYPE 2 DIABETES MELLITUS WITHOUT COMPLICATIONS Status: Chronic Priority: Medium Current Visit: Yes Qualifiers: Diabetes mellitus complication status: without complication Diabetes mellitus fci insulin use: with fci use Qualified Code(s): E11.9 - Type 2 diabetes mellitus without complications; Z79.4 - half-way (current) use of insulin; Z79.4 - watermaster (current) use of insulin; Z79.4 - half-way ( current) use of insulin; Z79.4 - half-way (current) use of insulin (5) Fibromyalgia SNOMED Code(s): 828377225 Code(s): M79.7 - FIBROMYALGIA Status: Chronic Priority: Low Current Visit: No (6) Asthma SNOMED Code(s): 797334777 Code(s): J45.909 - UNSPECIFIED ASTHMA, UNCOMPLICATED Status: Chronic Priority: Medium Current Visit: No Qualifiers: Asthma severity: unspecified severity Asthma persistence: unspecified Asthma complication type: unspecified Qualified Code(s): J45.909 - Unspecified asthma, uncomplicated (7) Other specified depressive episodes SNOMED Code(s): 62649785 Code(s): F32.89 - OTHER SPECIFIED DEPRESSIVE EPISODES Status: Chronic Priority: Low Current Visit: No (8) Anxiety SNOMED Code(s): 69865292 Code(s): F41.9 - ANXIETY DISORDER, UNSPECIFIED Status: Chronic Priority: Medium Current Visit: No (9) HTN (hypertension) SNOMED Code(s): 67374311 Code(s): I10 - ESSENTIAL (PRIMARY) HYPERTENSION Status: Chronic Priority : Medium Current Visit: No Qualifiers: Hypertension type: unspecified Qualified Code(s): I10 - Essential (primary ) hypertension (10) Obesity (BMI 30-39.9) SNOMED Code(s): 697975502 Code(s): E66.9 - OBESITY, UNSPECIFIED Status: Chronic Priority: Low Current Visit: No (11) GURVINDER (obstructive sleep apnea) SNOMED Code(s): 40185307 Code(s): G47.33 - OBSTRUCTIVE SLEEP APNEA (ADULT) (PEDIATRIC) Status: Chronic Priority: Low Current Visit: No (12) Insomnia SNOMED Code(s): 336284027 Code(s): G47.00 - INSOMNIA, UNSPECIFIED Status: Chronic Priority: Low Current Visit: No Qualifiers: Insomnia type: unspecified Qualified Code(s): G47.00 - Insomnia, unspecified (13) Elevated brain natriuretic peptide (BNP) level SNOMED Code(s): 784924986 Code(s): R79.89 - OTHER SPECIFIED ABNORMAL FINDINGS OF BLOOD CHEMISTRY Status: Acute Current Visit: Yes - Problem List Review Problem List Initiated/Reviewed/Updated: Yes - My Orders Last 24 Hours: My Active Orders 06/25/17 16:27 Cardiac Monitoring [RC] CONTINUOUS Height and Weight [RC] 0400 Intake and Output [RC] Q2HR Oxygen Therapy [RC] PRN Pulse Oximetry [RC] PRN Up With Assistance [RC] ASDIRECTED VTE/DVT Education [RC] 09,21 Vital Signs [RC] Q1HR Consult to Case Management [CONS] Routine Albuterol/Ipratropium [DuoNeb 3.0-0.5 MG/3 ML] 3 ml NEB Q4H PRN Ondansetron [Zofran ODT] 4 mg PO Q6H PRN Ondansetron [Zofran] 4 mg IV Q6H PRN Antiembolic Hose [OM.PC] Per Unit Routine Resuscitation Status Routine 06/25/17 16:29 Antiembolic Devices [RC] QSHIFT RT Aerosol Therapy [RC] ASDIRECTED 06/25/17 16:30 Blood Glucose Check, Bedside [RC] QIDACANDBED Dextrose 50% in Water 50 ml IVPUSH ASDIRECTED PRN 06/25/17 17:00 Insulin Aspart [NovoLOG] See Protocol SUBCUT QIDACANDBED 06/25/17 17:18 RESPIRATORY PANEL BY PCR [MREF] Stat 06/25/17 17:34 Echo Comp wo Cont [US] Routine 06/25/17 17:45 Nursing Bedside Swallow Screen [RC] ASDIRECTED Consult to Speech Language Pathology [FELLMONGERING MACHINE OPERATOR Evaluation and Treatment] [CONS] Routine 06/25/17 19:19 Urinary Catheter Assessment [RC] Q4HR 06/25/17 19:30 [place] Catheter Insertion [Insert Urinary Catheter] [OM.PC] Q24H 06/25/17 19:47 Acetaminophen [Tylenol] 650 mg RECTAL Q4H PRN 06/26/17 08:00 Echo Comp wo Cont [US] Routine Piperacillin/Tazobactam [Zosyn] 4.5 gm Sodium Chloride 0.9% [Normal Saline] 100 ml IV ONETIME 06/26/17 Breakfast NPO [Nothing Per Oral Diet] [DIET] 06/27/17 05:11 BASIC METABOLIC PANEL,BMP [CHEM] AM CBC WITH AUTO DIFF [HEME] AM CRP [C-REACTIVE PROTEIN] [CHEM] AM MAGNESIUM [CHEM] AM PRO B-TYPE NATRIUR PEPT,BNPPRO [CHEM] DAILY 06/28/17 05:11 BASIC METABOLIC PANEL,BMP [CHEM] AM CBC WITH AUTO DIFF [HEME] AM CRP [C-REACTIVE PROTEIN] [CHEM] AM MAGNESIUM [CHEM] AM PRO B-TYPE NATRIUR PEPT,BNPPRO [CHEM] DAILY 06/29/17 05:11 BASIC METABOLIC PANEL,BMP [CHEM] AM CBC WITH AUTO DIFF [HEME] AM CRP [C-REACTIVE PROTEIN] [CHEM] AM MAGNESIUM [CHEM] AM PRO B-TYPE NATRIUR PEPT,BNPPRO [CHEM] DAILY - Plan Plan:: I/P: UTI -History of 4 UTIs over past 3 years - last 12/16/16 and was hospitalized in [place] -Similar symptoms with all episodes per -Fever (104.4), confusion, agitation, foul smelling urine, Tachycardia -Rocephin started in ED - continue -UA not very impressive, Negative leukocyte esterase, nitrite. -Many bacteria - culture positive for gram neg rods >100,000 -No costophrenic angle tenderness -WBC 19.50, CRP 34.7 AMS - reports worsening confusion and concern over possible stroke over past day - also reports pt. has hx/o AMS with prior UTIs -CT in ED negative for acute findings -MRI ordered for 06/26/17 - pending -? UTI symptoms vs. meningococcal encephalopathy - refused LP in ED -Will order viral/bacterial/fungal workup -Culture blood, culture urine, group B strep, herpes screen, RPR, respiratory panel, strep pneumonia, toxoplasma gondii -Nursing bedside swallow screen -FELLMONGERING MACHINE OPERATOR swallow evaluation -Rocephin, vancomycin, zosyn -Contact precautions -NPO for now untill swallow eval/mentation improves -Dexamethasone -Much more alert yesterday Bacteremia -Blood cultures positive for gram negative rods 07/17 -Rocephin/Vanco/zosyn -Repeat cultures in 24-48 hours Renal insufficiency -Unsure of baseline -Creatinine 1.2-->1.3 -BUN 13-->19 -eGFR 45-->41 -Caution with nephrotoxic medications Elevated BNP -Does not appear to have CHF history although on lasix for edema per old notes -BNP 46515 in ED-->56353 -Diurese with caution due to renal insufficiency -Echo ordered -CXR on 06/26/17 shows no pulmonary vascular congestion -Monitor Hypokalemia -K2.7 in ED -->3.4 -Supplemented -Pharmacy to monitor and supplement Chronic: Fibromyalgia Chronic low back pain Type II DM on insulin- continue home meds, sliding scale insulin, 4 times a day before meals and bedtime glucose checks. Asthma Depression Anxiety HTN Obesity GURVINDER - does not tolerate CPAP Insomnia CAD with hx/o stenting Right sided inguinal hernia repair Plan: Admit to ICU Other orders as indicated above CM for discharge planning Home medications as ordered pending swallow evals Routine AM labs Hold off PT/OT for now until lab results return/mentation improves DVT Prophylaxis: NAHED glass/marla Code Status: Full code; PCP: Dr. Pedro in [place].
[2017-06-26] MEDS: cefTRIAXone 2 GM in Sodium Chloride 0.9% 100 ML IV SCH ×2 (08:56→20:33)
[2017-06-26] MEDS: DEXAMETHASONE IV SCH ×2 (08:58→20:35)
[2017-06-26] MEDS: SODIUM CHLORIDE 0.9% IV SCH ×2 (08:58→20:35)
[2017-06-26] MEDS: Lisinopril 20 MG Tab PO SCH (09:00)
[2017-06-26] MEDS ORDERED: INSULIN GLARGINE HUM REC ANLOG 16 UNIT SUBCUT SCH (09:00)
--- NOTE | 2017-06-26 09:38 | CR ---
Chest: Frontal view of the chest was obtained. Comparison: Prior chest x-ray of 06/25/17. Heart size at the upper limits of normal. Tortuous thoracic aorta is seen. Pulmonary vessels may be slightly congested although are accentuated from light technique. Lungs otherwise are clear. Bony structures are grossly intact. Impression: 1. Questionable pulmonary vascular congestion as noted above. Diagnostic code #3 I agree with preliminary report from [facility], finalized at 06/25/17, 10:16 PM Central Time
[2017-06-26] MEDS ORDERED: HYDROmorphone 0.5 MG/0.5 ML SYRINGE IVPUSH ONE (09:39)
[2017-06-26] MEDS: Metoprolol Tartrate 5 MG/5 ML SDV IVPUSH PRN ×3 (10:22→22:51)
[2017-06-26] MEDS ORDERED: LORazepam 2 MG/ML SDV IVPUSH ONE ×2 (11:18→11:30)
--- NOTE | 2017-06-26 11:19 | CR ---
Chest: Frontal view of the chest was obtained. Comparison: Prior chest x-ray of 06/25/17. Heart is enlarged. Tortuous thoracic aorta is seen. Pulmonary vessels are improved from prior exam. No acute pulmonary vascular congestion is seen on current chest x-ray. Bony structures are grossly intact. Impression: 1. Nothing acute is seen. Other incidental findings. Diagnostic code #2
[2017-06-26] MEDS ORDERED: cefTRIAXone 2 GM in Sodium Chloride 0.9% 100 ML IV SCH (12:00)
--- NOTE | 2017-06-26 15:53 | MR ---
MRI brain Technique: T1 sagittal; T2, T2 FLAIR, T1 and diffusion axial; T1 FLAIR coronal images were obtained. Comparison: No previous intracranial imaging. Findings: Ventricles along with basal cisterns and sulci over the convexities are mildly prominent. Normal signal void is seen within the major cerebral arteries at the skull base. Mild areas of increased signal noted within the periventricular white matter compatible with minimal small vessel ischemic demyelination change. No other abnormal signal seen within the brain parenchyma. No acute diffusion abnormalities are seen. Impression: 1. Very mild senescent change as noted above. No acute diffusion abnormalities are identified. Note: This MRI does not exclude mild encephalitis Diagnostic code #2
[2017-06-26] MEDS: Piperacillin/Tazobactam 4.5 GM in Sodium Chloride 0.9% 100 ML IV SCH (16:27)
[2017-06-26] MEDS ORDERED: Dextrose 5%-0.9% NaCl 1,000 ML IV SCH (20:00)
[2017-06-26] MEDS ORDERED: Dexamethasone 10 MG/ML SDV ONE (20:06)
[2017-06-27] MEDS: Piperacillin/Tazobactam 4.5 GM in Sodium Chloride 0.9% 100 ML IV SCH ×3 (01:04→17:10)
[2017-06-27] MEDS: Formoterol/Mometasone 200-5 MCG 8.8 GM Inhaler IH SCH ×2 (06:00→23:05)
--- NOTE | 2017-06-27 06:46 | PCM.PN ---
- General Info Date of Service: 06/27/17 Admission Dx/Problem (Free Text): Pyelonephritis Subjective Update: In to see Noemi. She is lying in bed. Nurses are assisting her with feeding. She did pass a nursing swallow evaluation. She is alert and does respond somewhat to questions however not very well. We will resume many of her home medications. Her blood sugars have been high and she is on insulin at home which she does not have here. We'll add Levemir for coverage as Lantus is not in our formulary. She has been resting. BMP is improving slowly. We will stop the fluids now she is eating and drinking. We'll discontinue Rocephin. Continue current treatment. Viral panel is back and is negative. Strep pneumo was negative. Group B strep and RPR negative. Functional Status: Reports: Tolerating Diet, Urinating. Denies: New Symptoms - Review of Systems Systems Review Comment:: Unable to obtain accurate ROS as patient is still somewhat confused and has difficulty communicating. She does not any pain currently. - Patient Data Vitals - Most Recent: Last Vital Signs Temp 98.3 F 06/27/17 04:00 Pulse 106 H 06/27/17 00:00 Resp 21 H 06/27/17 04:00 BP 139/99 H 06/27/17 00:00 Pulse Ox 94 L 06/27/17 04:00 Weight - Most Recent: 224 lb 14.4 oz I&O - Last 24 Hours: Intake & Output 06/26/17 06/26/17 06/27/17 14:59 22:59 06:59 Intake Total 0 892 315 Output Total 520 385 245 Balance -520 507 70 Lab Results Last 24 Hours: Laboratory Results - last 24 hr 06/25/17 06/26/17 06/26/17 Range/Units 16:30 05:46 05:46 WBC (3.98-10.04) K/mm3 RBC (3.98-5.22) M/mm3 Hgb (11.2-15.7) gm/L Hct (34.1-44.9) % MCV (79.4-94.8) fl MCH (25.6-32.2) pg MCHC (32.2-35.5) g/dl RDW Std Deviation (36.4-46.3) fL Plt Count (182-369) K/mm3 MPV (9.4-12.3) fl Neut % (Auto) (34.0-71.1) % Lymph % (Auto) (19.3-51.7) % Coffee % (Auto) (4.7-12.5) % Eos % (Auto) (0.7-5.8) Baso % (Auto) (0.1-1.2) % Neut # (Auto) (1.56-6.13) K/mm3 Lymph # (Auto) (1.18-3.74) K/mm3 Coffee # (Auto) (0.24-0.36) K/mm3 Eos # (Auto) (0.04-0.36) K/mm3 Baso # (Auto) (0.01-0.08) K/mm3 Sodium 141 (136-145) mEq/L Potassium 3.4 L (3.5-5.1) mEq/L Chloride 104 (98-107) mEq/L Carbon Dioxide 20 L (21-32) mEq/L Anion Gap 20.4 H (5-15) BUN 19 H (7-18) mg/dL Creatinine 1.3 H (0.55-1.02) mg/dL Est Cr Clr Drug Dosing 33.21 mL/min Estimated GFR (MDRD) 41 (>60) mL/min BUN/Creatinine Ratio 14.6 (14-18) Glucose 307 H (80-115) mg/dL POC Glucose (80-115) mg/dL Calcium 8.7 (8.5-10.1) mg/dL Magnesium 2.5 H (1.8-2.4) mg/dl C-Reactive Protein 43.7 H* (<1.0) mg/dL NT-Pro-B Natriuret Pep 59788 H (0-125) pg/mL Procalcitonin 71.82 H (<0.10) ng/mL 06/26/17 06/26/17 06/26/17 Range/Units 11:25 17:47 21:15 WBC (3.98-10.04) K/mm3 RBC (3.98-5.22) M/mm3 Hgb (11.2-15.7) gm/L Hct (34.1-44.9) % MCV (79.4-94.8) fl MCH (25.6-32.2) pg MCHC (32.2-35.5) g/dl RDW Std Deviation (36.4-46.3) fL Plt Count (182-369) K/mm3 MPV (9.4-12.3) fl Neut % (Auto) (34.0-71.1) % Lymph % (Auto) (19.3-51.7) % Coffee % (Auto) (4.7-12.5) % Eos % (Auto) (0.7-5.8) Baso % (Auto) (0.1-1.2) % Neut # (Auto) (1.56-6.13) K/mm3 Lymph # (Auto) (1.18-3.74) K/mm3 Coffee # (Auto) (0.24-0.36) K/mm3 Eos # (Auto) (0.04-0.36) K/mm3 Baso # (Auto) (0.01-0.08) K/mm3 Sodium (136-145) mEq/L Potassium (3.5-5.1) mEq/L Chloride (98-107) mEq/L Carbon Dioxide (21-32) mEq/L Anion Gap (5-15) BUN (7-18) mg/dL Creatinine (0.55-1.02) mg/dL Est Cr Clr Drug Dosing mL/min Estimated GFR (MDRD) (>60) mL/min BUN/Creatinine Ratio (14-18) Glucose (80-115) mg/dL POC Glucose 276 H 233 H 269 H (80-115) mg/dL Calcium (8.5-10.1) mg/dL Magnesium (1.8-2.4) mg/dl C-Reactive Protein (<1.0) mg/dL NT-Pro-B Natriuret Pep (0-125) pg/mL Procalcitonin (<0.10) ng/mL 06/27/17 06/27/17 Range/Units 05:57 06:00 WBC 19.54 H (3.98-10.04) K/mm3 RBC 5.05 (3.98-5.22) M/mm3 Hgb 14.0 (11.2-15.7) gm/L Hct 43.5 (34.1-44.9) % MCV 86.1 (79.4-94.8) fl MCH 27.7 (25.6-32.2) pg MCHC 32.2 (32.2-35.5) g/dl RDW Std Deviation 47.2 H (36.4-46.3) fL Plt Count 308 (182-369) K/mm3 MPV 12.0 (9.4-12.3) fl Neut % (Auto) 92.3 H (34.0-71.1) % Lymph % (Auto) 3.9 L (19.3-51.7) % Coffee % (Auto) 3.2 L (4.7-12.5) % Eos % (Auto) 0 L (0.7-5.8) Baso % (Auto) 0.2 (0.1-1.2) % Neut # (Auto) 18.05 H (1.56-6.13) K/mm3 Lymph # (Auto) 0.76 L (1.18-3.74) K/mm3 Coffee # (Auto) 0.63 H (0.24-0.36) K/mm3 Eos # (Auto) 0.00 L (0.04-0.36) K/mm3 Baso # (Auto) 0.03 (0.01-0.08) K/mm3 Sodium (136-145) mEq/L Potassium (3.5-5.1) mEq/L Chloride (98-107) mEq/L Carbon Dioxide (21-32) mEq/L Anion Gap (5-15) BUN (7-18) mg/dL Creatinine (0.55-1.02) mg/dL Est Cr Clr Drug Dosing mL/min Estimated GFR (MDRD) (>60) mL/min BUN/Creatinine Ratio (14-18) Glucose (80-115) mg/dL POC Glucose 314 H (80-115) mg/dL Calcium (8.5-10.1) mg/dL Magnesium (1.8-2.4) mg/dl C-Reactive Protein (<1.0) mg/dL NT-Pro-B Natriuret Pep (0-125) pg/mL Procalcitonin (<0.10) ng/mL Terry Results Last 24 Hours: Microbiology 06/26/17 05:46 Aerobic Blood Culture - Preliminary Blood - Venous Anaerobic Blood Culture - Preliminary 06/25/17 17:18 Respiratory Virus Panel (PCR) (TERRY) - Final Nasopharyngeal Swab - Nare, Unspecified Med Orders - Current: Current Medications Acetaminophen (Tylenol) 650 mg RECTAL Q4H PRN PRN Reason: Fever/pain (1-3) Albuterol/Ipratropium (Duoneb 3.0-0.5 Mg/3 Ml) 3 ml NEB Q4H PRN PRN Reason: Shortness Of Breath/wheezing Last Admin: 06/25/17 20:00 Dose: 3 ml Dextrose/Water (Dextrose 50% In Water) 50 ml IVPUSH ASDIRECTED PRN PRN Reason: Hypoglycemia Hydralazine HCl (Apresoline) 20 mg IVPUSH Q4H PRN PRN Reason: Hypertension Last Admin: 06/26/17 10:12 Dose: 20 mg Sodium Chloride (Normal Saline) 1,000 mls @ 999 mls/hr IV ONETIME KVNG Last Admin: 06/25/17 11:51 Dose: 999 mls/hr Ceftriaxone Sodium 2 gm/ (Sodium Chloride) 100 mls @ 100 mls/hr IV Q12H KVNG Last Admin: 06/26/17 20:33 Dose: 100 mls/hr Dexamethasone 36 mg/ Sodium (Chloride) 53.6 mls @ 107.2 mls/hr IV Q12HR KVNG Stop: 06/27/17 09:29 Last Admin: 06/26/17 20:35 Dose: 107.2 mls/hr Vancomycin HCl 1 gm/Vancomycin HCl 250 mg/ Sodium Chloride 250 mls @ 250 mls/ hr IV Q24H KVNG Last Admin: 06/26/17 16:23 Dose: 250 mls/hr Diltiazem HCl 125 mg/ Sodium (Chloride) 125 mls @ 5 mls/hr IV TITRATE KVNG; 5 MG /HR PRN Reason: Protocol Last Titration: 06/26/17 08:45 Dose: 0 mg/hr, 0 mls/hr Piperacillin Sod/Tazobactam (Sod 4.5 gm/ Sodium Chloride) 100 mls @ 25 mls/hr IV Q8H KVNG Last Admin: 06/27/17 01:04 Dose: 25 mls/hr Dextrose/Sodium Chloride (Dextrose 5%-Normal Saline) 1,000 mls @ 15 mls/hr IV ASDIRECTED KVNG Last Admin: 06/26/17 21:16 Dose: 15 mls/hr Insulin Aspart (Novolog) 0 unit SUBCUT QIDACANDBED [facility] PRN Reason: Protocol Last Admin: 06/26/17 21:20 Dose: 3 unit Lisinopril (Prinivil) 20 mg PO DAILY [facility] Last Admin: 06/26/17 09:00 Dose: Not Given Lorazepam (Ativan) 2 mg IVPUSH Q4H PRN PRN Reason: Seizures Lorazepam (Ativan) 1 mg IVPUSH Q4H PRN PRN Reason: Anxiety Last Admin: 06/26/17 21:51 Dose: 1 mg Magnesium Sulfate (Pharmacy To Dose - Magnesium Replacement) 1 dose .XX ASDIRECTED [facility] Metoprolol Tartrate (Lopressor) 5 mg IVPUSH Q4H PRN PRN Reason: Tachycardia Last Admin: 06/26/17 22:51 Dose: 5 mg Mometasone Furoate/Formoterol Fumar (Dulera 200-5 Mcg) 2 puff IH BIDRT [facility] Last Admin: 06/27/17 06:00 Dose: Not Given Ondansetron HCl (Zofran Odt) 4 mg PO Q6H PRN PRN Reason: nausea, able to take PO Ondansetron HCl (Zofran) 4 mg IV Q6H PRN PRN Reason: Nausea/Vomiting (Liraglutide 0.6 Mg) (Victoza) 0 each SUBCUT DAILY [facility] Last Admin: 06/26/17 09:00 Dose: Not Given Potassium Chloride (Pharmacy To Dose - Potassium Replacement) 1 dose .XX ASDIRECTED [facility] Sodium Chloride (Saline Flush) 10 ml FLUSH ASDIRECTED PRN PRN Reason: Keep Vein Open Last Admin: 06/25/17 11:52 Dose: 10 ml Vancomycin HCl (Pharmacy To Dose - Vancomycin) 1 dose .XX ASDIRECTED [facility] Discontinued Medications Acetaminophen (Tylenol) 650 mg RECTAL NOW ONE Stop: 06/25/17 11:42 Last Admin: 06/25/17 11:53 Dose: 650 mg Acetaminophen (Tylenol) 650 mg PO Q4H PRN PRN Reason: Pain (Mild 1-3)/fever Dexamethasone (Dexamethasone) 36 mg IVPUSH Q12HR [facility] Stop: 06/28/17 09:00 Dexamethasone (Dexamethasone) Confirm Administered Dose 40 [address] .[address] .[facility] ONE Stop: 06/26/17 20:07 Last Admin: 06/26/17 20:31 Dose: Not Given Diazepam (Valium) 5 mg IVPUSH ONETIME ONE Stop: 06/26/17 11:39 Last Admin: 06/26/17 11:45 Dose: 5 mg Diltiazem HCl (Diltiazem) 10 mg IVPUSH ONETIME ONE Stop: 06/25/17 11:36 Last Admin: 06/25/17 11:51 Dose: 10 mg Diphtheria/Tetanus/Acell Pertussis (Adacel) 0.5 ml IM .ONCE ONE Stop: 06/26/17 07:20 Furosemide (Lasix) 10 mg IVPUSH NOW ONE Stop: 06/25/17 22:11 Last Admin: 06/25/17 23:01 Dose: 10 mg Hydromorphone HCl (Dilaudid) 0.5 mg IVPUSH ONETIME ONE Stop: 06/26/17 09:40 Last Admin: 06/26/17 09:52 Dose: 0.5 mg Ceftriaxone Sodium 2 gm/ (Sodium Chloride) 100 mls @ 100 mls/hr IV ONETIME ONE Stop: 06/25/17 12:41 Last Admin: 06/25/17 11:54 Dose: 100 mls/hr Ceftriaxone Sodium 2 gm/ (Sodium Chloride) 100 mls @ 100 mls/hr IV Q24H [facility] Vancomycin HCl 1 gm/Vancomycin HCl 500 mg/ Sodium Chloride 500 mls @ 250 mls/ hr IV ONETIME ONE Stop: 06/25/17 18:14 Last Admin: 06/25/17 17:35 Dose: 250 mls/hr Potassium Chloride 10 meq/ (Premix) 100 mls @ 100 mls/hr IV Q1H [facility] Stop: 06/25/17 22:14 Last Admin: 06/25/17 23:17 Dose: 100 mls/hr Magnesium Sulfate 2 gm/ Premix 50 mls @ 25 mls/hr IV ONETIME ONE Stop: 06/25/17 22:45 Last Admin: 06/25/17 21:31 Dose: 25 mls/hr Potassium Chloride 10 meq/ (Premix) 100 mls @ 100 mls/hr IV Q1H [facility] Stop: 06/26/17 11:29 Last Admin: 06/26/17 13:55 Dose: 75 mls/hr Piperacillin Sod/Tazobactam (Sod 4.5 gm/ Sodium Chloride) 100 mls @ 200 mls/hr IV ONETIME ONE Stop: 06/26/17 08:29 Last Admin: 06/26/17 08:19 Dose: 200 mls/hr Insulin Aspart (Novolog) 3 unit SUBCUT TIDAC [facility] Lorazepam (Ativan) 4 mg IVPUSH ONETIME ONE Stop: 06/25/17 15:42 Last Admin: 06/25/17 16:00 Dose: 2 mg Lorazepam (Ativan) 2 mg IVPUSH ONETIME ONE Stop: 06/26/17 11:19 Last Admin: 06/26/17 11:41 Dose: 2 mg Lorazepam (Ativan) 2 mg IVPUSH ONETIME ONE Stop: 06/26/17 11:31 Last Admin: 06/26/17 18:16 Dose: Not Given Methylprednisolone Sodium Succinate (Solu-Medrol) 125 mg IVPUSH ONETIME ONE Stop: 06/25/17 20:44 Last Admin: 06/25/17 23:45 Dose: Not Given Methylprednisolone Sodium Succinate (Solu-Medrol) 125 mg IVPUSH Q6H [facility] Non-Formulary Medication (Insulin Glargine,Hum.Rec.Anlog) 16 units SUBCUT DAILY [facility] - Exam Quality Assessment: Urine Catheter, DVT Prophylaxis General: Alert, Cooperative, Mild Distress HEENT: Pupils Equal, Pupils Reactive, EOMI, Mucous Membr. Moist/[place] Neck: Supple, Trachea Midline, No JVD Lungs: Clear to Auscultation, Normal Respiratory Effort, Decreased Breath Sounds. No: Rhonchi, Wheezing Cardiovascular: Regular Rhythm, Tachycardia GI/Abdominal Exam: Normal Bowel Sounds, Soft, Non-Tender, No Organomegaly, No Distention, No Abnormal Bruit, No Mass, Pelvis Stable (Female) Exam: Deferred Back Exam: Normal Inspection, Full Range of Motion Extremities: Normal Inspection, Normal Range of Motion, Non-Tender, No Pedal Edema, Normal Capillary Refill Peripheral Pulses: 3+: Radial (L), Radial (R), Posterior Tibial (L), Posterior Tibial (R), Dorsalis Pedis (L), Dorsalis Pedis (R) Skin: Warm, Dry, Intact Psy/Mental Status: Alert - Problem List & Annotations (1) Fever SNOMED Code(s): 641690767 Code(s): R50.9 - FEVER, UNSPECIFIED Status: Acute Priority: High Current Visit: Yes Qualifiers: Fever type: due to other condition Qualified Code(s): R50.81 - Fever presenting with conditions classified elsewhere (2) UTI (urinary tract infection) SNOMED Code(s): 03378170 Code(s): N39.0 - URINARY TRACT INFECTION, SITE NOT SPECIFIED Status: Acute Priority: High Current Visit: Yes Qualifiers: Urinary tract infection type: acute cystitis Hematuria presence: without hematuria Qualified Code(s): N30.00 - Acute cystitis without hematuria (3) Altered mental status SNOMED Code(s): 760593965 Code(s): R41.82 - ALTERED MENTAL STATUS, UNSPECIFIED Status: Acute Priority: High Current Visit: Yes Qualifiers: Altered mental status type: unspecified Qualified Code(s): R41.82 - Altered mental status, unspecified (4) Type II diabetes mellitus SNOMED Code(s): 79145334 Code(s): E11.9 - TYPE 2 DIABETES MELLITUS WITHOUT COMPLICATIONS Status: Chronic Priority: Medium Current Visit: Yes Qualifiers: Diabetes mellitus complication status: without complication Diabetes mellitus terminal gauger insulin use: with mcfp use Qualified Code(s): E11.9 - Type 2 diabetes mellitus without complications; Z79.4 - nursing home (current) use of insulin; Z79.4 - petroleum terminal plant operator (current) use of insulin; Z79.4 - nursing home ( current) use of insulin; Z79.4 - nursing home (current) use of insulin (5) Fibromyalgia SNOMED Code(s): 446830589 Code(s): M79.7 - FIBROMYALGIA Status: Chronic Priority: Low Current Visit: No (6) Asthma SNOMED Code(s): 996768718 Code(s): J45.909 - UNSPECIFIED ASTHMA, UNCOMPLICATED Status: Chronic Priority: Medium Current Visit: No Qualifiers: Asthma severity: unspecified severity Asthma persistence: unspecified Asthma complication type: unspecified Qualified Code(s): J45.909 - Unspecified asthma, uncomplicated (7) Other specified depressive episodes SNOMED Code(s): 10339714 Code(s): F32.89 - OTHER SPECIFIED DEPRESSIVE EPISODES Status: Chronic Priority: Low Current Visit: No (8) Anxiety SNOMED Code(s): 77201200 Code(s): F41.9 - ANXIETY DISORDER, UNSPECIFIED Status: Chronic Priority: Medium Current Visit: No (9) HTN (hypertension) SNOMED Code(s): 55318151 Code(s): I10 - ESSENTIAL (PRIMARY) HYPERTENSION Status: Chronic Priority : Medium Current Visit: No Qualifiers: Hypertension type: unspecified Qualified Code(s): I10 - Essential (primary ) hypertension (10) Obesity (BMI 30-39.9) SNOMED Code(s): 648956906 Code(s): E66.9 - OBESITY, UNSPECIFIED Status: Chronic Priority: Low Current Visit: No (11) GURVINDER (obstructive sleep apnea) SNOMED Code(s): 62844388 Code(s): G47.33 - OBSTRUCTIVE SLEEP APNEA (ADULT) (PEDIATRIC) Status: Chronic Priority: Low Current Visit: No (12) Insomnia SNOMED Code(s): 482266176 Code(s): G47.00 - INSOMNIA, UNSPECIFIED Status: Chronic Priority: Low Current Visit: No Qualifiers: Insomnia type: unspecified Qualified Code(s): G47.00 - Insomnia, unspecified (13) Elevated brain natriuretic peptide (BNP) level SNOMED Code(s): 256717211 Code(s): R79.89 - OTHER SPECIFIED ABNORMAL FINDINGS OF BLOOD CHEMISTRY Status: Acute Current Visit: Yes - Problem List Review Problem List Initiated/Reviewed/Updated: Yes - My Orders Last 24 Hours: My Active Orders 06/26/17 17:00 Piperacillin/Tazobactam [Zosyn] 4.5 gm Sodium Chloride 0.9% [Normal Saline] 100 ml IV Q8H 06/26/17 Breakfast NPO [Nothing Per Oral Diet] [DIET] 06/27/17 06:00 BASIC METABOLIC PANEL,BMP [CHEM] AM CBC WITH AUTO DIFF [HEME] AM CRP [C-REACTIVE PROTEIN] [CHEM] AM MAGNESIUM [CHEM] AM PRO B-TYPE NATRIUR PEPT,BNPPRO [CHEM] DAILY 06/27/17 08:00 Echo Comp wo Cont [US] Routine 06/28/17 05:11 BASIC METABOLIC PANEL,BMP [CHEM] AM CBC WITH AUTO DIFF [HEME] AM CRP [C-REACTIVE PROTEIN] [CHEM] AM MAGNESIUM [CHEM] AM PRO B-TYPE NATRIUR PEPT,BNPPRO [CHEM] DAILY 06/29/17 05:11 BASIC METABOLIC PANEL,BMP [CHEM] AM CBC WITH AUTO DIFF [HEME] AM CRP [C-REACTIVE PROTEIN] [CHEM] AM MAGNESIUM [CHEM] AM PRO B-TYPE NATRIUR PEPT,BNPPRO [CHEM] DAILY - Plan Plan:: I/P: UTI, improving -History of 4 UTIs over past 3 years - last 12/16/16 and was hospitalized in [place] -Similar symptoms with all episodes per -Fever (104.4), confusion, agitation, foul smelling urine, Tachycardia -Rocephin started in ED - continue -UA not very impressive, Negative leukocyte esterase, nitrite. -Many bacteria - culture positive for gram neg rods >100,000 -No costophrenic angle tenderness -WBC 19.50-->19.73-->22.15--19.59, CRP 34.7-->35.5-->43.7-->21.5 AMS, improving - reports worsening confusion and concern over possible stroke over past day - also reports pt. has hx/o AMS with prior UTIs -CT in ED negative for acute findings -MRI ordered for 06/26/17 - very mild senescent change, Cannot rule out mild encephalitis -? UTI symptoms vs. 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 -Rocephin, vancomycin, zosyn--> discontinue rocephin -Contact precautions -NPO for now untill swallow eval/mentation improves--> advance to continuous carb diet -Dexamethasone -Much more alert today and improving Bacteremia -Blood cultures positive for gram negative rods / -Rocephin/Vanco/zosyn--> stop rocephin -Repeat cultures tomorrow Renal insufficiency -Unsure of baseline -Creatinine 1.2-->1.3-->1.6 -BUN 13-->19-->32 -eGFR 45-->41-->32 -Caution with nephrotoxic medications Elevated BNP -Does not appear to have CHF history although on lasix for edema per old notes -BNP 29672 in ED-->95859-->59733 -Diurese with caution due to renal insufficiency -Echo ordered -CXR on 06/26/17 shows no pulmonary vascular congestion -Monitor Hypokalemia -K2.7 in ED -->3.4 -Supplemented -Pharmacy to monitor and supplement Hyperthyroidism -TSH 0.153 -T4 1.52 -Defer to PCP to f/u Chronic: Fibromyalgia Chronic low back pain Type II DM on insulin- continue home meds, sliding scale insulin, 4 times a day before meals and bedtime glucose checks. Asthma Depression Anxiety HTN Obesity GURVINDER - does not tolerate CPAP Insomnia CAD with hx/o stenting Right sided inguinal hernia repair Plan: Admit to ICU Other orders as indicated above CM for discharge planning Home medications as ordered pending swallow giles Routine AM labs Hold off PT/OT for now until lab results return/mentation improves DVT Prophylaxis: NAHED glass/lovenox Code Status: Full code; PCP: Dr. Pedro in [place].
[2017-06-27] MEDS: Insulin Aspart 100 Units/ML 3 ML Pen SUBCUT SCH ×4 (06:47→21:56)
[2017-06-27] MEDS: LORazepam 2 MG/ML SDV IVPUSH PRN ×3 (07:24→22:08)
[2017-06-27] MEDS ORDERED: LORazepam 2 MG/ML SDV IVPUSH ONE (08:08)
[2017-06-27] MEDS: SODIUM CHLORIDE 0.9% IV SCH (08:34)
[2017-06-27] MEDS: DEXAMETHASONE IV SCH (08:34)
[2017-06-27] MEDS: cefTRIAXone 2 GM in Sodium Chloride 0.9% 100 ML IV SCH (09:55)
[2017-06-27] MEDS: Lisinopril 20 MG Tab PO SCH (09:56)
[2017-06-27] MEDS: Metoprolol Tartrate 5 MG/5 ML SDV IVPUSH PRN ×2 (11:57→20:04)
[2017-06-27] MEDS: hydrALAZINE 20 MG/ML SDV IVPUSH PRN (12:15)
[2017-06-27] MEDS ORDERED: Sodium Chloride 0.9% 1,000 ML IV SCH (17:00)
[2017-06-27] MEDS: Insulin Detemir 100 Units/ML 3 ML Pen SUBCUT SCH (20:02)
[2017-06-28] MEDS: Piperacillin/Tazobactam 4.5 GM in Sodium Chloride 0.9% 100 ML IV SCH ×2 (01:28→08:39)
[2017-06-28] MEDS: Metoprolol Tartrate 5 MG/5 ML SDV IVPUSH PRN ×2 (01:29→11:20)
[2017-06-28] MEDS: LORazepam 2 MG/ML SDV IVPUSH PRN (02:11)
[2017-06-28] MEDS: hydrALAZINE 20 MG/ML SDV IVPUSH PRN ×2 (04:28→09:44)
--- NOTE | 2017-06-28 06:33 | PCM.PN ---
- General Info Date of Service: 06/28/17 Admission Dx/Problem (Free Text): Pyelonephritis Subjective Update: In to see Noemi. She is sitting in the chair. She does respond to yes or no questions initially, however she quickly stopped answering questions. She will follow directions. Nursing reports she has been feeding well. She will also attempt to get up to use the bathroom and does have purposeful movements. She is slowly improving. Her urine did come back positive for Escherichia coli and sensitive for everything. Pharmacist did mention that she talked with the lab and they do believe at the same bacteria is in her blood and urine. We'll stop Zosyn and vancomycin. We'll switch to Rocephin. Her BNP is dropping. Creatinine is 1.7 however she is urinating. Vitals have been stable however nursing has noted difficulty with obtaining a reliable blood pressure as the patient will find the blood pressure cuff when it is inflating. Functional Status: Reports: Pain Controlled, Tolerating Diet, Ambulating, Urinating. Denies: New Symptoms - Review of Systems Systems Review Comment:: Patient initially states that she is not short of breath but is having pain. She will not answer anymore questions. She does respond appropriately for much of my exam however she will not make eye contact with me and often just refuses to do what I ask. Ultimately reliable ROS was unable to be obtained. - Patient Data Vitals - Most Recent: Last Vital Signs Temp 97.6 F 06/28/17 04:00 Pulse 101 H 06/28/17 04:00 Resp 29 H 06/28/17 04:00 BP 196/117 H 06/28/17 04:00 Pulse Ox 94 L 06/28/17 04:00 Weight - Most Recent: 224 lb I&O - Last 24 Hours: Intake & Output 06/27/17 06/27/17 06/28/17 14:59 22:59 06:59 Intake Total 60 900 999 Output Total 270 315 285 Balance -210 585 714 Lab Results Last 24 Hours: Laboratory Results - last 24 hr 06/25/17 06/27/17 06/27/17 Range/Units 17:15 06:00 06:00 Manual Slide Review Abnormal smear Sodium 145 (136-145) mEq/L Potassium 3.5 (3.5-5.1) mEq/L Chloride 110 H (98-107) mEq/L Carbon Dioxide 23 (21-32) mEq/L Anion Gap 15.5 H (5-15) BUN 38 H (7-18) mg/dL Creatinine 1.6 H (0.55-1.02) mg/dL Est Cr Clr Drug Dosing 26.98 mL/min Estimated GFR (MDRD) 32 (>60) mL/min BUN/Creatinine Ratio 23.8 H (14-18) Glucose 346 H (80-115) mg/dL POC Glucose (80-115) mg/dL Calcium 9.0 (8.5-10.1) mg/dL Magnesium 2.8 H (1.8-2.4) mg/dl C-Reactive Protein 21.5 H* (<1.0) mg/dL NT-Pro-B Natriuret Pep (0-125) pg/mL Group B Strep (PCR) Negative (NEGATIVE) 06/27/17 06/27/17 06/27/17 Range/Units 06:00 11:58 17:14 Manual Slide Review Sodium (136-145) mEq/L Potassium (3.5-5.1) mEq/L Chloride (98-107) mEq/L Carbon Dioxide (21-32) mEq/L Anion Gap (5-15) BUN (7-18) mg/dL Creatinine (0.55-1.02) mg/dL Est Cr Clr Drug Dosing mL/min Estimated GFR (MDRD) (>60) mL/min BUN/Creatinine Ratio (14-18) Glucose (80-115) mg/dL POC Glucose 304 H 315 H (80-115) mg/dL Calcium (8.5-10.1) mg/dL Magnesium (1.8-2.4) mg/dl C-Reactive Protein (<1.0) mg/dL NT-Pro-B Natriuret Pep 51973 H (0-125) pg/mL Group B Strep (PCR) (NEGATIVE) 06/27/17 Range/Units 21:47 Manual Slide Review Sodium (136-145) mEq/L Potassium (3.5-5.1) mEq/L Chloride (98-107) mEq/L Carbon Dioxide (21-32) mEq/L Anion Gap (5-15) BUN (7-18) mg/dL Creatinine (0.55-1.02) mg/dL Est Cr Clr Drug Dosing mL/min Estimated GFR (MDRD) (>60) mL/min BUN/Creatinine Ratio (14-18) Glucose (80-115) mg/dL POC Glucose 298 H (80-115) mg/dL Calcium (8.5-10.1) mg/dL Magnesium (1.8-2.4) mg/dl C-Reactive Protein (<1.0) mg/dL NT-Pro-B Natriuret Pep (0-125) pg/mL Group B Strep (PCR) (NEGATIVE) Terry Results Last 24 Hours: Microbiology 06/26/17 05:46 Aerobic Blood Culture - Preliminary Blood - Venous Anaerobic Blood Culture - Preliminary Med Orders - Current: Current Medications Acetaminophen (Tylenol) 650 mg RECTAL Q4H PRN PRN Reason: Fever/pain (1-3) Albuterol/Ipratropium (Duoneb 3.0-0.5 Mg/3 Ml) 3 ml NEB Q4H PRN PRN Reason: Shortness Of Breath/wheezing Last Admin: 06/25/17 20:00 Dose: 3 ml Amlodipine Besylate (Norvasc) 10 mg PO DAILY [facility] Aspirin (Halfprin) 81 mg PO DAILY [facility] Citalopram Hydrobromide (Celexa) 20 mg PO DAILY [facility] Dextrose/Water (Dextrose 50% In Water) 50 ml IVPUSH ASDIRECTED PRN PRN Reason: Hypoglycemia Hydralazine HCl (Apresoline) 20 mg IVPUSH Q4H PRN PRN Reason: Hypertension Last Admin: 06/28/17 04:28 Dose: 20 mg Vancomycin HCl 1 gm/Vancomycin HCl 250 mg/ Sodium Chloride 250 mls @ 250 mls/ hr IV Q24H [facility] Last Admin: 06/27/17 16:47 Dose: 250 mls/hr Piperacillin Sod/Tazobactam (Sod 4.5 gm/ Sodium Chloride) 100 mls @ 25 mls/hr IV Q8H [facility] Last Admin: 06/28/17 01:28 Dose: 25 mls/hr Sodium Chloride (Normal Saline) 1,000 mls @ 50 mls/hr IV ASDIRECTED [facility] Stop: 06/28/17 12:59 Last Infusion: 06/27/17 21:28 Dose: 15 mls/hr Insulin Aspart (Novolog) 0 unit SUBCUT QIDACANDBED [facility] PRN Reason: Protocol Last Admin: 06/27/17 21:56 Dose: 3 unit Insulin Detemir (Levemir) 7 unit SUBCUT BID [facility] Last Admin: 06/27/17 20:02 Dose: 7 unit Lisinopril (Prinivil) 20 mg PO DAILY [facility] Last Admin: 06/27/17 09:56 Dose: Not Given Lorazepam (Ativan) 2 mg IVPUSH Q4H PRN PRN Reason: Seizures Lorazepam (Ativan) 1 mg IVPUSH Q4H PRN PRN Reason: Anxiety Last Admin: 06/28/17 02:11 Dose: 1 mg Magnesium Sulfate (Pharmacy To Dose - Magnesium Replacement) 1 dose .XX ASDIRECTED [facility] Metoprolol Succinate (Toprol Xl) 50 mg PO DAILY [facility] Metoprolol Tartrate (Lopressor) 5 mg IVPUSH Q4H PRN PRN Reason: Tachycardia Last Admin: 06/28/17 01:29 Dose: 5 mg Mometasone Furoate/Formoterol Fumar (Dulera 200-5 Mcg) 2 puff IH BIDRT [facility] Last Admin: 06/27/17 23:05 Dose: Not Given Montelukast Sodium (Singulair) 10 mg PO DAILY [facility] Ondansetron HCl (Zofran Odt) 4 mg PO Q6H PRN PRN Reason: nausea, able to take PO Ondansetron HCl (Zofran) 4 mg IV Q6H PRN PRN Reason: Nausea/Vomiting Pantoprazole Sodium (Protonix) 40 mg PO DAILY@0700 [facility] (Liraglutide 0.6 Mg) (Victoza) 0 each SUBCUT DAILY [facility] Last Admin: 06/27/17 09:55 Dose: Not Given Potassium Chloride (Pharmacy To Dose - Potassium Replacement) 1 dose .XX ASDIRECTED [facility] Sodium Chloride (Saline Flush) 10 ml FLUSH ASDIRECTED PRN PRN Reason: Keep Vein Open Last Admin: 06/25/17 11:52 Dose: 10 ml Triamterene/HCTZ (Dyazide 25-37.5 Mg) each PO DAILY [facility] Vancomycin HCl (Pharmacy To Dose - Vancomycin) 1 dose .XX ASDIRECTED [facility] Discontinued Medications Acetaminophen (Tylenol) 650 mg RECTAL NOW ONE Stop: 06/25/17 11:42 Last Admin: 06/25/17 11:53 Dose: 650 mg Acetaminophen (Tylenol) 650 mg PO Q4H PRN PRN Reason: Pain (Mild 1-3)/fever Dexamethasone (Dexamethasone) 36 mg IVPUSH Q12HR [facility] Stop: 06/28/17 09:00 Dexamethasone (Dexamethasone) Confirm Administered Dose 40 mg .ROUTE .STK-MED ONE Stop: 06/26/17 20:07 Last Admin: 06/26/17 20:31 Dose: Not Given Diazepam (Valium) 5 mg IVPUSH ONETIME ONE Stop: 06/26/17 11:39 Last Admin: 06/26/17 11:45 Dose: 5 mg Diazepam (Valium) 2 mg IVPUSH ONETIME ONE Stop: 06/27/17 09:01 Last Admin: 06/27/17 08:46 Dose: 2 mg Diazepam (Valium) 3 mg IVPUSH ONETIME ONE Stop: 06/27/17 11:31 Last Admin: 06/27/17 11:39 Dose: 3 mg Diltiazem HCl (Diltiazem) 10 mg IVPUSH ONETIME ONE Stop: 06/25/17 11:36 Last Admin: 06/25/17 11:51 Dose: 10 mg Diphtheria/Tetanus/Acell Pertussis (Adacel) 0.5 ml IM .ONCE ONE Stop: 06/26/17 07:20 Furosemide (Lasix) 10 mg IVPUSH NOW ONE Stop: 06/25/17 22:11 Last Admin: 06/25/17 23:01 Dose: 10 mg Hydromorphone HCl (Dilaudid) 0.5 mg IVPUSH ONETIME ONE Stop: 06/26/17 09:40 Last Admin: 06/26/17 09:52 Dose: 0.5 mg Sodium Chloride (Normal Saline) 1,000 mls @ 999 mls/hr IV ONETIME [facility] Last Admin: 06/25/17 11:51 Dose: 999 mls/hr Ceftriaxone Sodium 2 gm/ (Sodium Chloride) 100 mls @ 100 mls/hr IV ONETIME ONE Stop: 06/25/17 12:41 Last Admin: 06/25/17 11:54 Dose: 100 mls/hr Ceftriaxone Sodium 2 gm/ (Sodium Chloride) 100 mls @ 100 mls/hr IV Q24H [facility] Ceftriaxone Sodium 2 gm/ (Sodium Chloride) 100 mls @ 100 mls/hr IV Q12H [facility] Last Admin: 06/27/17 09:55 Dose: 100 mls/hr Vancomycin HCl 1 gm/Vancomycin HCl 500 mg/ Sodium Chloride 500 mls @ 250 mls/ hr IV ONETIME ONE Stop: 06/25/17 18:14 Last Admin: 06/25/17 17:35 Dose: 250 mls/hr Potassium Chloride 10 meq/ (Premix) 100 mls @ 100 mls/hr IV Q1H [facility] Stop: 06/25/17 22:14 Last Admin: 06/25/17 23:17 Dose: 100 mls/hr Dexamethasone 36 mg/ Sodium (Chloride) 53.6 mls @ 107.2 mls/hr IV Q12HR [facility] Stop: 06/27/17 09:29 Last Admin: 06/27/17 08:34 Dose: 107.2 mls/hr Magnesium Sulfate 2 gm/ Premix 50 mls @ 25 mls/hr IV ONETIME ONE Stop: 06/25/17 22:45 Last Admin: 06/25/17 21:31 Dose: 25 mls/hr Diltiazem HCl 125 mg/ Sodium (Chloride) 125 mls @ 5 mls/hr IV TITRATE [facility]; 5 MG /HR PRN Reason: Protocol Last Titration: 06/26/17 08:45 Dose: 0 mg/hr, 0 mls/hr Potassium Chloride 10 meq/ (Premix) 100 mls @ 100 mls/hr IV Q1H [facility] Stop: 06/26/17 11:29 Last Admin: 06/26/17 13:55 Dose: 75 mls/hr Piperacillin Sod/Tazobactam (Sod 4.5 gm/ Sodium Chloride) 100 mls @ 200 mls/hr IV ONETIME ONE Stop: 06/26/17 08:29 Last Admin: 06/26/17 08:19 Dose: 200 mls/hr Dextrose/Sodium Chloride (Dextrose 5%-Normal Saline) 1,000 mls @ 15 mls/hr IV ASDIRECTED [facility] Last Admin: 06/26/17 21:16 Dose: 15 mls/hr Propofol (Diprivan 100 Ml) Confirm Administered Dose 100 mls @ as directed .ROUTE .STK-MED ONE Stop: 06/27/17 21:21 Last Admin: 06/27/17 21:57 Dose: Not Given Insulin Aspart (Novolog) 3 unit SUBCUT TIDAC [facility] Lorazepam (Ativan) 4 mg IVPUSH ONETIME ONE Stop: 06/25/17 15:42 Last Admin: 06/25/17 16:00 Dose: 2 mg Lorazepam (Ativan) 2 mg IVPUSH ONETIME ONE Stop: 06/26/17 11:19 Last Admin: 06/26/17 11:41 Dose: 2 mg Lorazepam (Ativan) 2 mg IVPUSH ONETIME ONE Stop: 06/26/17 11:31 Last Admin: 06/26/17 18:16 Dose: Not Given Lorazepam (Ativan) 2 mg IVPUSH ONETIME ONE Stop: 06/27/17 08:09 Last Admin: 06/27/17 08:33 Dose: 2 mg Methylprednisolone Sodium Succinate (Solu-Medrol) 125 mg IVPUSH ONETIME ONE Stop: 06/25/17 20:44 Last Admin: 06/25/17 23:45 Dose: Not Given Methylprednisolone Sodium Succinate (Solu-Medrol) 125 mg IVPUSH Q6H [facility] Non-Formulary Medication (Insulin Glargine,Hum.Rec.Anlog) 16 units SUBCUT DAILY [facility] - Exam Quality Assessment: DVT Prophylaxis General: Alert, Cooperative (somewhat ), No Acute Distress HEENT: Pupils Equal, Pupils Reactive, EOMI, Mucous Membr. Moist/[place] Neck: Supple, Trachea Midline Lungs: Clear to Auscultation, Normal Respiratory Effort, Decreased Breath Sounds Cardiovascular: Regular Rhythm, Tachycardia GI/Abdominal Exam: Normal Bowel Sounds, Soft, Non-Tender, No Organomegaly, No Distention, No Abnormal Bruit, No Mass, Pelvis Stable (Female) Exam: Deferred Extremities: Normal Inspection, Normal Range of Motion, Non-Tender, No Pedal Edema, Normal Capillary Refill Peripheral Pulses: 3+: Radial (L), Radial (R), 4+: Posterior Tibial (L), Posterior Tibial (R), Dorsalis Pedis (L), Dorsalis Pedis (R) Skin: Warm, Dry, Intact Psy/Mental Status: Alert, Normal Affect, Normal Mood - Problem List & Annotations (1) Fever SNOMED Code(s): 219270333 Code(s): R50.9 - FEVER, UNSPECIFIED Status: Acute Priority: High Current Visit: Yes Qualifiers: Fever type: due to other condition Qualified Code(s): R50.81 - Fever presenting with conditions classified elsewhere (2) UTI (urinary tract infection) SNOMED Code(s): 58722526 Code(s): N39.0 - URINARY TRACT INFECTION, SITE NOT SPECIFIED Status: Acute Priority: High Current Visit: Yes Qualifiers: Urinary tract infection type: acute cystitis Hematuria presence: without hematuria Qualified Code(s): N30.00 - Acute cystitis without hematuria (3) Altered mental status SNOMED Code(s): 293673055 Code(s): R41.82 - ALTERED MENTAL STATUS, UNSPECIFIED Status: Acute Priority: High Current Visit: Yes Qualifiers: Altered mental status type: unspecified Qualified Code(s): R41.82 - Altered mental status, unspecified (4) Type II diabetes mellitus SNOMED Code(s): 56747733 Code(s): E11.9 - TYPE 2 DIABETES MELLITUS WITHOUT COMPLICATIONS Status: Chronic Priority: Medium Current Visit: Yes Qualifiers: Diabetes mellitus complication status: without complication Diabetes mellitus termination clerk insulin use: with penitentiary use Qualified Code(s): E11.9 - Type 2 diabetes mellitus without complications; Z79.4 - terminal system operator (current) use of insulin; Z79.4 - terminal system operator (current) use of insulin; Z79.4 - terminal system operator ( current) use of insulin; Z79.4 - [facility] (current) use of insulin (5) Fibromyalgia SNOMED Code(s): 701724360 Code(s): M79.7 - FIBROMYALGIA Status: Chronic Priority: Low Current Visit: No (6) Asthma SNOMED Code(s): 721147433 Code(s): J45.909 - UNSPECIFIED ASTHMA, UNCOMPLICATED Status: Chronic Priority: Medium Current Visit: No Qualifiers: Asthma severity: unspecified severity Asthma persistence: unspecified Asthma complication type: unspecified Qualified Code(s): J45.909 - Unspecified asthma, uncomplicated (7) Other specified depressive episodes SNOMED Code(s): 02048783 Code(s): F32.89 - OTHER SPECIFIED DEPRESSIVE EPISODES Status: Chronic Priority: Low Current Visit: No (8) Anxiety SNOMED Code(s): 30944634 Code(s): F41.9 - ANXIETY DISORDER, UNSPECIFIED Status: Chronic Priority: Medium Current Visit: No (9) HTN (hypertension) SNOMED Code(s): 37920847 Code(s): I10 - ESSENTIAL (PRIMARY) HYPERTENSION Status: Chronic Priority : Medium Current Visit: No Qualifiers: Hypertension type: unspecified Qualified Code(s): I10 - Essential (primary ) hypertension (10) Obesity (BMI 30-39.9) SNOMED Code(s): 022178950 Code(s): E66.9 - OBESITY, UNSPECIFIED Status: Chronic Priority: Low Current Visit: No (11) GURVINDER (obstructive sleep apnea) SNOMED Code(s): 30443791 Code(s): G47.33 - OBSTRUCTIVE SLEEP APNEA (ADULT) (PEDIATRIC) Status: Chronic Priority: Low Current Visit: No (12) Insomnia SNOMED Code(s): 723686460 Code(s): G47.00 - INSOMNIA, UNSPECIFIED Status: Chronic Priority: Low Current Visit: No Qualifiers: Insomnia type: unspecified Qualified Code(s): G47.00 - Insomnia, unspecified (13) Elevated brain natriuretic peptide (BNP) level SNOMED Code(s): 593366483 Code(s): R79.89 - OTHER SPECIFIED ABNORMAL FINDINGS OF BLOOD CHEMISTRY Status: Acute Current Visit: Yes (14) Bacteremia SNOMED Code(s): 0196237 Code(s): R78.81 - BACTEREMIA Status: Acute Priority: High Current Visit : Yes - Problem List Review Problem List Initiated/Reviewed/Updated: Yes - My Orders Last 24 Hours: My Active Orders 06/27/17 17:00 Sodium Chloride 0.9% [Normal Saline] 1,000 ml IV ASDIRECTED 06/27/17 21:00 Insulin Detemir [Levemir] 7 unit SUBCUT BID 06/27/17 Dinner Consistent Carbohydrate Diet [DIET] 06/28/17 05:11 BASIC METABOLIC PANEL,BMP [CHEM] AM CBC WITH AUTO DIFF [HEME] AM CRP [C-REACTIVE PROTEIN] [CHEM] AM CULTURE BLOOD [BC] Routine CULTURE BLOOD [BC] Routine LACTIC ACID [CHEM] Routine MAGNESIUM [CHEM] AM PRO B-TYPE NATRIUR PEPT,BNPPRO [CHEM] DAILY Blood Culture x2 Reflex Set [OM.PC] AM 06/28/17 07:00 Pantoprazole [ProTONIX] 40 mg PO DAILY@0700 06/28/17 09:00 Aspirin [Halfprin] 81 mg PO DAILY Citalopram [Celexa] 20 mg PO DAILY HCTZ/Triamterene [Dyazide 25-37.5 MG] DOSE each PO DAILY Metoprolol Succinate [Toprol XL] 50 mg PO DAILY Montelukast [Singulair] 10 mg PO DAILY amLODIPine [Norvasc] 10 mg PO DAILY 06/29/17 05:11 BASIC METABOLIC PANEL,BMP [CHEM] AM CBC WITH AUTO DIFF [HEME] AM CRP [C-REACTIVE PROTEIN] [CHEM] AM MAGNESIUM [CHEM] AM PRO B-TYPE NATRIUR PEPT,BNPPRO [CHEM] DAILY - Plan Plan:: I/P: UTI, improving -History of 4 UTIs over past 3 years - last 12/16/16 and was hospitalized in [place] -Similar symptoms with all episodes per -Fever (104.4), confusion, agitation, foul smelling urine, Tachycardia -Rocephin started in ED - continue -UA not very impressive, Negative leukocyte esterase, nitrite. -Many bacteria - culture positive for gram neg rods >100,000, E Coli, sensitive to rocephin -No costophrenic angle tenderness -WBC 19.50-->19.73-->22.15--19.59-->17.79, CRP 34.7-->35.5-->43.7-->21.5--> 10.4 AMS, improving - reports worsening confusion and concern over possible stroke over past day - also reports pt. has hx/o AMS with prior UTIs -CT in ED negative for acute findings -MRI ordered for 06/26/17 - very mild senescent change, Cannot rule out mild encephalitis -? UTI symptoms vs. 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 -Rocephin, vancomycin, zosyn--> discontinue rocephin-->s -Contact precautions -NPO for now untill swallow eval/mentation improves--> advance to continuous carb diet -Dexamethasone -Much more alert today and improving Bacteremia -Blood cultures positive for gram negative rods 4/4 -Rocephin/Vanco/zosyn--> stop rocephin-->sensitivities back - stop vanco, zosyn, resume rocephin -Repeat cultures today - pending Renal insufficiency -Unsure of baseline -Creatinine 1.2-->1.3-->1.6-->1.7 -BUN 13-->19-->32-->46 -eGFR 45-->41-->32-->30 -Caution with nephrotoxic medications Elevated BNP -Does not appear to have CHF history although on lasix for edema per old notes -BNP 77308 in ED-->08121-->72185-->07370 -Diurese with caution due to renal insufficiency -Echo ordered -CXR on 06/26/17 shows no pulmonary vascular congestion -Monitor Hypokalemia -K2.7 in ED -->3.4 -Supplemented -Pharmacy to monitor and supplement Hyperthyroidism -TSH 0.153 -T4 1.52 -Defer to PCP to f/u Hypernatremia -Sodium 151 -Start D5W -Monitor Chronic: Fibromyalgia Chronic low back pain Type II DM on insulin- continue home meds, sliding scale insulin, 4 times a day before meals and bedtime glucose checks. Asthma Depression Anxiety HTN Obesity GURVINDER - does not tolerate CPAP Insomnia CAD with hx/o stenting Right sided inguinal hernia repair Plan: Admit to ICU Other orders as indicated above CM for discharge planning Home medications as ordered pending pam skaggs Routine AM labs Hold off PT/OT for now until lab results return/mentation improves DVT Prophylaxis: NAHED glass/marla Code Status: Full code; PCP: Dr. Pedro in [place]. LOS >96hrs due to slow response to treatment
[2017-06-28] MEDS: Formoterol/Mometasone 200-5 MCG 8.8 GM Inhaler IH SCH ×2 (07:08→21:09)
[2017-06-28] MEDS: Pantoprazole 40 MG Tab.CR PO SCH (07:45)
[2017-06-28] MEDS: Insulin Aspart 100 Units/ML 3 ML Pen SUBCUT SCH ×3 (07:48→17:51)
[2017-06-28] MEDS: Lisinopril 20 MG Tab PO SCH (08:36)
[2017-06-28] MEDS: Metoprolol Succinate 50 MG Tab.ER PO SCH (08:38)
[2017-06-28] MEDS: amLODIPine 10 MG Tab PO SCH (08:38)
[2017-06-28] MEDS: Montelukast 10 MG Tab PO SCH (08:38)
[2017-06-28] MEDS: Citalopram 20 MG Tab PO SCH (08:38)
[2017-06-28] MEDS: Aspirin 81 MG Tab.EC PO SCH (08:38)
[2017-06-28] MEDS: Insulin Detemir 100 Units/ML 3 ML Pen SUBCUT SCH ×2 (08:50→20:26)
[2017-06-28] MEDS: Potassium Chloride 10 MEQ in Premix Bag 1 BAG IV SCH ×4 (09:15→14:19)
[2017-06-28] MEDS ORDERED: cloNIDine 0.3 MG/Day Transdermal Patch TRDERM SCH (11:15)
--- NOTE | 2017-06-28 13:06 | CT ---
Head CT Technique: Multiple axial sections through the brain were obtained. Intravenous contrast was not utilized. Comparison: No previous intracranial imaging. Findings: Ventricles along with basal cisterns and sulci over the convexities are within normal limits for the patient's age. Mild diminished density is noted within portions of the periventricular white matter which is compatible with small vessel ischemic demyelination change. No other abnormal parenchymal densities are seen. No evidence of intracranial hemorrhage. No midline shift or mass effect is seen. Atherosclerotic calcification is seen within the carotid siphon and within the vertebral vessels. Bone window settings show the visualized sinuses to appear clear. No acute calvarial abnormality is seen. Impression: 1. Mild senescent change as noted above. Nothing acute is appreciated on noncontrast head CT exam. Diagnostic code #2 MTDD
--- NOTE | 2017-06-28 13:09 | PCM.SN ---
- Free Text/Narrative Note: Called for a difficult IV insertion. 20 gauge IV inserted in right upper arm with ultrasound. Flushes well with 20ml 0.9NS, Good blood return, Secured with transparent dressing and tape. Two attempts.
[2017-06-28] MEDS: HYDROCHLOROTHIAZIDE PO SCH (14:19)
[2017-06-28] MEDS: TRIAMTERENE PO SCH (14:19)
[2017-06-28] MEDS ORDERED: Dextrose 5% in Water 1,000 ML IV SCH (17:30)
[2017-06-28] MEDS: cefTRIAXone 2 GM in Sodium Chloride 0.9% 100 ML IV SCH (17:51)
[2017-06-28] MEDS: Saccharomyces Boulardii (Probiotic) 250 MG Cap PO SCH (20:16)
[2017-06-29] MEDS: hydrALAZINE 20 MG/ML SDV IVPUSH PRN (00:36)
[2017-06-29] MEDS: Insulin Aspart 100 Units/ML 3 ML Pen SUBCUT SCH ×5 (00:46→21:04)
[2017-06-29] MEDS: Pantoprazole 40 MG Tab.CR PO SCH (06:02)
--- NOTE | 2017-06-29 06:45 | PCM.PN ---
- General Info Date of Service: 06/29/17 Admission Dx/Problem (Free Text): Pyelonephritis Subjective Update: Follow Up Functional Status: Reports: Pain Controlled, Tolerating Diet, Urinating. Denies : Ambulating, New Symptoms - Review of Systems General: Denies: Fever, Weakness, Fatigue, Malaise HEENT: Reports: No Symptoms Pulmonary: Denies: Shortness of Breath, Cough Cardiovascular: Denies: Chest Pain, Palpitations, Dyspnea on Exertion, Lightheadedness Gastrointestinal: Denies: Abdominal Pain, Constipation, Decreased Appetite, Diarrhea, Nausea, Vomiting Genitourinary: Reports: No Symptoms Musculoskeletal: Reports: No Symptoms Skin: Denies: Cyanosis, Jaundice, Mottled, Pallor, Diaphoresis Neurological: Reports: Confusion (lingering confusion), Difficulty Walking, Weakness, Gait Disturbance Psychiatric: Denies: Depression, Anxiety, Agitation, Hallucinations Systems Review Comment:: No overnight or acute issues. She is alert/awake and able to engage beyond answering yes or no. She feels fine and reports no complaints. She appears comfortable eating her breakfast in bed. She is now able to stand up and sit on a chair. She has been afebrile with improving WBC level. - Patient Data Vitals - Most Recent: Last Vital Signs Temp 36.8 C 06/29/17 04:00 Pulse 90 06/29/17 04:00 Resp 20 06/29/17 04:00 BP 126/84 06/29/17 04:00 Pulse Ox 96 06/29/17 04:00 Weight - Most Recent: 99.291 kg I&O - Last 24 Hours: Intake & Output 06/28/17 06/28/17 06/29/17 14:59 22:59 06:59 Intake Total 980 1293 2147 Output Total 252 295 370 Balance 487 176 9459 Lab Results Last 24 Hours: Laboratory Results - last 24 hr 06/25/17 06/25/17 06/28/17 Range/Units 16:30 16:30 07:09 WBC (3.98-10.04) K/mm3 RBC (3.98-5.22) M/mm3 Hgb (11.2-15.7) gm/L Hct (34.1-44.9) % MCV (79.4-94.8) fl MCH (25.6-32.2) pg MCHC (32.2-35.5) g/dl RDW Std Deviation (36.4-46.3) fL Plt Count (182-369) K/mm3 MPV (9.4-12.3) fl Neut % (Auto) (34.0-71.1) % Lymph % (Auto) (19.3-51.7) % [place] % (Auto) (4.7-12.5) % Eos % (Auto) (0.7-5.8) Baso % (Auto) (0.1-1.2) % Neut # (Auto) (1.56-6.13) K/mm3 Lymph # (Auto) (1.18-3.74) K/mm3 [place] # (Auto) (0.24-0.36) K/mm3 Eos # (Auto) (0.04-0.36) K/mm3 Baso # (Auto) (0.01-0.08) K/mm3 Manual Slide Review Sodium (136-145) mEq/L Potassium (3.5-5.1) mEq/L Chloride (98-107) mEq/L Carbon Dioxide (21-32) mEq/L Anion Gap (5-15) BUN (7-18) mg/dL Creatinine (0.55-1.02) mg/dL Est Cr Clr Drug Dosing mL/min Estimated GFR (MDRD) (>60) mL/min BUN/Creatinine Ratio (14-18) Glucose (80-115) mg/dL POC Glucose 313 H (80-115) mg/dL Lactic Acid (0.4-2.0) mmol/L Calcium (8.5-10.1) mg/dL Magnesium (1.8-2.4) mg/dl C-Reactive Protein (<1.0) mg/dL NT-Pro-B Natriuret Pep (0-125) pg/mL Vancomycin Trough (10.0-20.0) HSV IgM Ab Screen Negative (NEG) HSV I IgG Ab Positive H (NEG) HSV II IgG Negative (NEG) Toxoplasma gondii IgG Negative (NEG) Toxoplasma gondii IgM Negative (NEG) 06/28/17 06/28/17 06/28/17 Range/Units 07:15 07:15 07:15 WBC 17.79 H (3.98-10.04) K/mm3 RBC 5.21 (3.98-5.22) M/mm3 Hgb 14.4 (11.2-15.7) gm/L Hct 45.1 H (34.1-44.9) % MCV 86.6 (79.4-94.8) fl MCH 27.6 (25.6-32.2) pg MCHC 31.9 L (32.2-35.5) g/dl RDW Std Deviation 48.7 H (36.4-46.3) fL Plt Count 309 (182-369) K/mm3 MPV 12.3 (9.4-12.3) fl Neut % (Auto) 92.0 H (34.0-71.1) % Lymph % (Auto) 4.1 L (19.3-51.7) % [place] % (Auto) 3.4 L (4.7-12.5) % Eos % (Auto) 0 L (0.7-5.8) Baso % (Auto) 0.1 (0.1-1.2) % Neut # (Auto) 16.37 H (1.56-6.13) K/mm3 Lymph # (Auto) 0.73 L (1.18-3.74) K/mm3 [place] # (Auto) 0.61 H (0.24-0.36) K/mm3 Eos # (Auto) 0.00 L (0.04-0.36) K/mm3 Baso # (Auto) 0.01 (0.01-0.08) K/mm3 Manual Slide Review Normal smear Sodium 151 H (136-145) mEq/L Potassium 3.4 L (3.5-5.1) mEq/L Chloride 113 H (98-107) mEq/L Carbon Dioxide 22 (21-32) mEq/L Anion Gap 19.4 H (5-15) BUN 46 H (7-18) mg/dL Creatinine 1.7 H (0.55-1.02) mg/dL Est Cr Clr Drug Dosing 25.40 mL/min Estimated GFR (MDRD) 30 (>60) mL/min BUN/Creatinine Ratio 27.1 H (14-18) Glucose 341 H (80-115) mg/dL POC Glucose (80-115) mg/dL Lactic Acid (0.4-2.0) mmol/L Calcium 9.2 (8.5-10.1) mg/dL Magnesium 2.6 H (1.8-2.4) mg/dl C-Reactive Protein 10.4 H* (<1.0) mg/dL NT-Pro-B Natriuret Pep 28442 H (0-125) pg/mL Vancomycin Trough (10.0-20.0) HSV IgM Ab Screen (NEG) HSV I IgG Ab (NEG) HSV II IgG (NEG) Toxoplasma gondii IgG (NEG) Toxoplasma gondii IgM (NEG) 06/28/17 06/28/17 06/28/17 Range/Units 07:15 07:40 11:46 WBC (3.98-10.04) K/mm3 RBC (3.98-5.22) M/mm3 Hgb (11.2-15.7) gm/L Hct (34.1-44.9) % MCV (79.4-94.8) fl MCH (25.6-32.2) pg MCHC (32.2-35.5) g/dl RDW Std Deviation (36.4-46.3) fL Plt Count (182-369) K/mm3 MPV (9.4-12.3) fl Neut % (Auto) (34.0-71.1) % Lymph % (Auto) (19.3-51.7) % [place] % (Auto) (4.7-12.5) % Eos % (Auto) (0.7-5.8) Baso % (Auto) (0.1-1.2) % Neut # (Auto) (1.56-6.13) K/mm3 Lymph # (Auto) (1.18-3.74) K/mm3 [place] # (Auto) (0.24-0.36) K/mm3 Eos # (Auto) (0.04-0.36) K/mm3 Baso # (Auto) (0.01-0.08) K/mm3 Manual Slide Review Sodium (136-145) mEq/L Potassium (3.5-5.1) mEq/L Chloride (98-107) mEq/L Carbon Dioxide (21-32) mEq/L Anion Gap (5-15) BUN (7-18) mg/dL Creatinine (0.55-1.02) mg/dL Est Cr Clr Drug Dosing mL/min Estimated GFR (MDRD) (>60) mL/min BUN/Creatinine Ratio (14-18) Glucose (80-115) mg/dL POC Glucose 277 H 307 H (80-115) mg/dL Lactic Acid 1.9 (0.4-2.0) mmol/L Calcium (8.5-10.1) mg/dL Magnesium (1.8-2.4) mg/dl C-Reactive Protein (<1.0) mg/dL NT-Pro-B Natriuret Pep (0-125) pg/mL Vancomycin Trough (10.0-20.0) HSV IgM Ab Screen (NEG) HSV I IgG Ab (NEG) HSV II IgG (NEG) Toxoplasma gondii IgG (NEG) Toxoplasma gondii IgM (NEG) 06/28/17 06/28/17 06/28/17 Range/Units 15:30 17:37 20:26 WBC (3.98-10.04) K/mm3 RBC (3.98-5.22) M/mm3 Hgb (11.2-15.7) gm/L Hct (34.1-44.9) % MCV (79.4-94.8) fl MCH (25.6-32.2) pg MCHC (32.2-35.5) g/dl RDW Std Deviation (36.4-46.3) fL Plt Count (182-369) K/mm3 MPV (9.4-12.3) fl Neut % (Auto) (34.0-71.1) % Lymph % (Auto) (19.3-51.7) % [place] % (Auto) (4.7-12.5) % Eos % (Auto) (0.7-5.8) Baso % (Auto) (0.1-1.2) % Neut # (Auto) (1.56-6.13) K/mm3 Lymph # (Auto) (1.18-3.74) K/mm3 [place] # (Auto) (0.24-0.36) K/mm3 Eos # (Auto) (0.04-0.36) K/mm3 Baso # (Auto) (0.01-0.08) K/mm3 Manual Slide Review Sodium (136-145) mEq/L Potassium (3.5-5.1) mEq/L Chloride (98-107) mEq/L Carbon Dioxide (21-32) mEq/L Anion Gap (5-15) BUN (7-18) mg/dL Creatinine (0.55-1.02) mg/dL Est Cr Clr Drug Dosing mL/min Estimated GFR (MDRD) (>60) mL/min BUN/Creatinine Ratio (14-18) Glucose (80-115) mg/dL POC Glucose 365 H 325 H (80-115) mg/dL Lactic Acid (0.4-2.0) mmol/L Calcium (8.5-10.1) mg/dL Magnesium (1.8-2.4) mg/dl C-Reactive Protein (<1.0) mg/dL NT-Pro-B Natriuret Pep (0-125) pg/mL Vancomycin Trough 15.0 (10.0-20.0) HSV IgM Ab Screen (NEG) HSV I IgG Ab (NEG) HSV II IgG (NEG) Toxoplasma gondii IgG (NEG) Toxoplasma gondii IgM (NEG) 06/29/17 06/29/17 06/29/17 Range/Units 00:46 03:33 06:00 WBC (3.98-10.04) K/mm3 RBC (3.98-5.22) M/mm3 Hgb (11.2-15.7) gm/L Hct (34.1-44.9) % MCV (79.4-94.8) fl MCH (25.6-32.2) pg MCHC (32.2-35.5) g/dl RDW Std Deviation (36.4-46.3) fL Plt Count (182-369) K/mm3 MPV (9.4-12.3) fl Neut % (Auto) (34.0-71.1) % Lymph % (Auto) (19.3-51.7) % [place] % (Auto) (4.7-12.5) % Eos % (Auto) (0.7-5.8) Baso % (Auto) (0.1-1.2) % Neut # (Auto) (1.56-6.13) K/mm3 Lymph # (Auto) (1.18-3.74) K/mm3 [place] # (Auto) (0.24-0.36) K/mm3 Eos # (Auto) (0.04-0.36) K/mm3 Baso # (Auto) (0.01-0.08) K/mm3 Manual Slide Review Sodium (136-145) mEq/L Potassium (3.5-5.1) mEq/L Chloride (98-107) mEq/L Carbon Dioxide (21-32) mEq/L Anion Gap (5-15) BUN (7-18) mg/dL Creatinine (0.55-1.02) mg/dL Est Cr Clr Drug Dosing mL/min Estimated GFR (MDRD) (>60) mL/min BUN/Creatinine Ratio (14-18) Glucose (80-115) mg/dL POC Glucose 284 H 234 H 212 H (80-115) mg/dL Lactic Acid (0.4-2.0) mmol/L Calcium (8.5-10.1) mg/dL Magnesium (1.8-2.4) mg/dl C-Reactive Protein (<1.0) mg/dL NT-Pro-B Natriuret Pep (0-125) pg/mL Vancomycin Trough (10.0-20.0) HSV IgM Ab Screen (NEG) HSV I IgG Ab (NEG) HSV II IgG (NEG) Toxoplasma gondii IgG (NEG) Toxoplasma gondii IgM (NEG) Med Orders - Current: Current Medications Acetaminophen (Tylenol) 650 mg RECTAL Q4H PRN PRN Reason: Fever/pain (1-3) Albuterol/Ipratropium (Duoneb 3.0-0.5 Mg/3 Ml) 3 ml NEB Q4H PRN PRN Reason: Shortness Of Breath/wheezing Last Admin: 06/25/17 20:00 Dose: 3 ml Amlodipine Besylate (Norvasc) 10 mg PO DAILY [facility] Last Admin: 06/28/17 08:38 Dose: 10 mg Aspirin (Halfprin) 81 mg PO DAILY [facility] Last Admin: 06/28/17 08:38 Dose: 81 mg Citalopram Hydrobromide (Celexa) 20 mg PO DAILY [facility] Last Admin: 06/28/17 08:38 Dose: 20 mg Clonidine HCl (Catapres-Tts 3) 0.3 mg TRDERM Q7D [facility] Last Admin: 06/28/17 11:34 Dose: 0.3 mg Dextrose/Water (Dextrose 50% In Water) 50 ml IVPUSH ASDIRECTED PRN PRN Reason: Hypoglycemia Hydralazine HCl (Apresoline) 20 mg IVPUSH Q4H PRN PRN Reason: Hypertension Last Admin: 06/29/17 00:36 Dose: 20 mg Ceftriaxone Sodium 2 gm/ (Sodium Chloride) 100 mls @ 100 mls/hr IV Q24H [facility] Last Admin: 06/28/17 17:51 Dose: 100 mls/hr Dextrose/Water (Dextrose 5% In Water) 1,000 mls @ 30 mls/hr IV ASDIRECTED [facility] Last Infusion: 06/28/17 21:54 Dose: 30 mls/hr Insulin Aspart (Novolog) 0 unit SUBCUT QIDACANDBED [facility] PRN Reason: Protocol Last Admin: 06/29/17 06:05 Dose: 4 unit Insulin Detemir (Levemir) 7 unit SUBCUT BID [facility] Last Admin: 06/28/17 20:26 Dose: 7 unit Lisinopril (Prinivil) 20 mg PO DAILY [facility] Last Admin: 06/28/17 08:36 Dose: 20 mg Lorazepam (Ativan) 2 mg IVPUSH Q4H PRN PRN Reason: Seizures Lorazepam (Ativan) 1 mg IVPUSH Q4H PRN PRN Reason: Anxiety Last Admin: 06/28/17 02:11 Dose: 1 mg Magnesium Sulfate (Pharmacy To Dose - Magnesium Replacement) 1 dose .XX ASDIRECTED [facility] Metoprolol Succinate (Toprol Xl) 50 mg PO DAILY [facility] Last Admin: 06/28/17 08:38 Dose: 50 mg Metoprolol Tartrate (Lopressor) 5 mg IVPUSH Q4H PRN PRN Reason: Tachycardia Last Admin: 06/28/17 11:20 Dose: 5 mg Miscellaneous Information (Remove Patch) 0 ea TRDERM Q7D [facility] Mometasone Furoate/Formoterol Fumar (Dulera 200-5 Mcg) 2 puff IH BIDRT [facility] Last Admin: 06/28/17 21:09 Dose: 2 puff Montelukast Sodium (Singulair) 10 mg PO DAILY [facility] Last Admin: 06/28/17 08:38 Dose: 10 mg Ondansetron HCl (Zofran Odt) 4 mg PO Q6H PRN PRN Reason: nausea, able to take PO Ondansetron HCl (Zofran) 4 mg IV Q6H PRN PRN Reason: Nausea/Vomiting Pantoprazole Sodium (Protonix) 40 mg PO DAILY@0700 [facility] Last Admin: 06/29/17 06:02 Dose: 40 mg (Liraglutide 0.6 Mg) (Victoza) 0 each SUBCUT DAILY [facility] Last Admin: 06/28/17 08:49 Dose: Not Given Hydrochlorothiazide/Triamterene 25-37.5 Mg Tab 0 each PO DAILY [facility] Last Admin: 06/28/17 14:19 Dose: Not Given Potassium Chloride (Pharmacy To Dose - Potassium Replacement) 1 dose .XX ASDIRECTED [facility] Saccharomyces Boulardii (Florastor) 250 mg PO BID [facility] Last Admin: 06/28/17 20:16 Dose: 250 mg Sodium Chloride (Saline Flush) 10 ml FLUSH ASDIRECTED PRN PRN Reason: Keep Vein Open Last Admin: 06/25/17 11:52 Dose: 10 ml Discontinued Medications Acetaminophen (Tylenol) 650 mg RECTAL NOW ONE Stop: 06/25/17 11:42 Last Admin: 06/25/17 11:53 Dose: 650 mg Acetaminophen (Tylenol) 650 mg PO Q4H PRN PRN Reason: Pain (Mild 1-3)/fever Dexamethasone (Dexamethasone) 36 mg IVPUSH Q12HR [facility] Stop: 06/28/17 09:00 Dexamethasone (Dexamethasone) Confirm Administered Dose 40 mg .ROUTE .STK-MED ONE Stop: 06/26/17 20:07 Last Admin: 06/26/17 20:31 Dose: Not Given Diazepam (Valium) 5 mg IVPUSH ONETIME ONE Stop: 06/26/17 11:39 Last Admin: 06/26/17 11:45 Dose: 5 mg Diazepam (Valium) 2 mg IVPUSH ONETIME ONE Stop: 06/27/17 09:01 Last Admin: 06/27/17 08:46 Dose: 2 mg Diazepam (Valium) 3 mg IVPUSH ONETIME ONE Stop: 06/27/17 11:31 Last Admin: 06/27/17 11:39 Dose: 3 mg Diltiazem HCl (Diltiazem) 10 mg IVPUSH ONETIME ONE Stop: 06/25/17 11:36 Last Admin: 06/25/17 11:51 Dose: 10 mg Diphtheria/Tetanus/Acell Pertussis (Adacel) 0.5 ml IM .ONCE ONE Stop: 06/26/17 07:20 Furosemide (Lasix) 10 mg IVPUSH NOW ONE Stop: 06/25/17 22:11 Last Admin: 06/25/17 23:01 Dose: 10 mg Hydromorphone HCl (Dilaudid) 0.5 mg IVPUSH ONETIME ONE Stop: 06/26/17 09:40 Last Admin: 06/26/17 09:52 Dose: 0.5 mg Sodium Chloride (Normal Saline) 1,000 mls @ 999 mls/hr IV ONETIME [facility] Last Admin: 06/25/17 11:51 Dose: 999 mls/hr Ceftriaxone Sodium 2 gm/ (Sodium Chloride) 100 mls @ 100 mls/hr IV ONETIME ONE Stop: 06/25/17 12:41 Last Admin: 06/25/17 11:54 Dose: 100 mls/hr Ceftriaxone Sodium 2 gm/ (Sodium Chloride) 100 mls @ 100 mls/hr IV Q24H [facility] Ceftriaxone Sodium 2 gm/ (Sodium Chloride) 100 mls @ 100 mls/hr IV Q12H [facility] Last Admin: 06/27/17 09:55 Dose: 100 mls/hr Vancomycin HCl 1 gm/Vancomycin HCl 500 mg/ Sodium Chloride 500 mls @ 250 mls/ hr IV ONETIME ONE Stop: 06/25/17 18:14 Last Admin: 06/25/17 17:35 Dose: 250 mls/hr Potassium Chloride 10 meq/ (Premix) 100 mls @ 100 mls/hr IV Q1H [facility] Stop: 06/25/17 22:14 Last Admin: 06/25/17 23:17 Dose: 100 mls/hr Dexamethasone 36 mg/ Sodium (Chloride) 53.6 mls @ 107.2 mls/hr IV Q12HR [facility] Stop: 06/27/17 09:29 Last Admin: 06/27/17 08:34 Dose: 107.2 mls/hr Vancomycin HCl 1 gm/Vancomycin HCl 250 mg/ Sodium Chloride 250 mls @ 250 mls/ hr IV Q24H [facility] Last Admin: 06/28/17 16:00 Dose: 250 mls/hr Magnesium Sulfate 2 gm/ Premix 50 mls @ 25 mls/hr IV ONETIME ONE Stop: 06/25/17 22:45 Last Admin: 06/25/17 21:31 Dose: 25 mls/hr Diltiazem HCl 125 mg/ Sodium (Chloride) 125 mls @ 5 mls/hr IV TITRATE [facility]; 5 MG /HR PRN Reason: Protocol Last Titration: 06/26/17 08:45 Dose: 0 mg/hr, 0 mls/hr Potassium Chloride 10 meq/ (Premix) 100 mls @ 100 mls/hr IV Q1H [facility] Stop: 06/26/17 11:29 Last Admin: 06/26/17 13:55 Dose: 75 mls/hr Piperacillin Sod/Tazobactam (Sod 4.5 gm/ Sodium Chloride) 100 mls @ 200 mls/hr IV ONETIME ONE Stop: 06/26/17 08:29 Last Admin: 06/26/17 08:19 Dose: 200 mls/hr Piperacillin Sod/Tazobactam (Sod 4.5 gm/ Sodium Chloride) 100 mls @ 25 mls/hr IV Q8H [facility] Last Admin: 06/28/17 08:39 Dose: 25 mls/hr Dextrose/Sodium Chloride (Dextrose 5%-Normal Saline) 1,000 mls @ 15 mls/hr IV ASDIRECTED [facility] Last Admin: 06/26/17 21:16 Dose: 15 mls/hr Sodium Chloride (Normal Saline) 1,000 mls @ 50 mls/hr IV ASDIRECTED [facility] Stop: 06/28/17 12:59 Last Infusion: 06/27/17 21:28 Dose: 15 mls/hr Propofol (Diprivan 100 Ml) Confirm Administered Dose 100 mls @ as directed .ROUTE .STK-MED ONE Stop: 06/27/17 21:21 Last Admin: 06/27/17 21:57 Dose: Not Given Potassium Chloride 10 meq/ (Premix) 100 mls @ 100 mls/hr IV Q1H [facility] Stop: 06/28/17 12:29 Last Admin: 06/28/17 14:19 Dose: 100 mls/hr Insulin Aspart (Novolog) 0 unit SUBCUT QIDACANDBED [facility] PRN Reason: Protocol Last Admin: 06/28/17 13:12 Dose: 4 unit Insulin Aspart (Novolog) 3 unit SUBCUT TIDAC [facility] Lorazepam (Ativan) 4 mg IVPUSH ONETIME ONE Stop: 06/25/17 15:42 Last Admin: 06/25/17 16:00 Dose: 2 mg Lorazepam (Ativan) 2 mg IVPUSH ONETIME ONE Stop: 06/26/17 11:19 Last Admin: 06/26/17 11:41 Dose: 2 mg Lorazepam (Ativan) 2 mg IVPUSH ONETIME ONE Stop: 06/26/17 11:31 Last Admin: 06/26/17 18:16 Dose: Not Given Lorazepam (Ativan) 2 mg IVPUSH ONETIME ONE Stop: 06/27/17 08:09 Last Admin: 06/27/17 08:33 Dose: 2 mg Methylprednisolone Sodium Succinate (Solu-Medrol) 125 mg IVPUSH ONETIME ONE Stop: 06/25/17 20:44 Last Admin: 06/25/17 23:45 Dose: Not Given Methylprednisolone Sodium Succinate (Solu-Medrol) 125 mg IVPUSH Q6H [facility] Non-Formulary Medication (Insulin Glargine,Hum.Rec.Anlog) 16 units SUBCUT DAILY [facility] Vancomycin HCl (Pharmacy To Dose - Vancomycin) 1 dose .XX ASDIRECTED [facility] - Exam General: Alert, Cooperative, No Acute Distress HEENT: Pupils Equal, Pupils Reactive, Mucous Membr. Moist/Crook Neck: Supple, Trachea Midline, No JVD, No Thyromegaly Lungs: Normal Respiratory Effort, Decreased Breath Sounds Cardiovascular: Regular Rate, Regular Rhythm GI/Abdominal Exam: Normal Bowel Sounds, Soft, Non-Tender, No Organomegaly, No Distention, No Abnormal Bruit (Female) Exam: Deferred Back Exam: Normal Inspection, Decreased Range of Motion Extremities: Normal Inspection, Normal Range of Motion, Non-Tender, No Pedal Edema, Normal Capillary Refill Peripheral Pulses: 2+: Dorsalis Pedis (L), Dorsalis Pedis (R) Skin: Warm, Dry, Intact Neurological: No New Focal Deficit (very limited but grossly intact) Psy/Mental Status: Alert, Normal Mood. 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 Mckoy, he recommended no antiviral agent since the patient is getting better but to continue current treatment -Informed patient at bedside about the abnormal test Bacteremia -Blood cultures positive for gram negative rods / -2/2 UTI -Now on IV Rocephin daily -Repeat cultures- negative so far for 1 day UTI, Continues to improve -History of 4 UTIs over past 3 years - last 12/16/16 and was hospitalized in [place] -Similar symptoms with all episodes per -Fever (104.4), confusion, agitation, foul smelling urine, Tachycardia -Rocephin started in ED - continue -UA not very impressive, Negative leukocyte esterase, nitrite -UA Cx pos for GNR and E. coli sensitive to Rocephin -No costophrenic angle tenderness -WBC 19.50--> now 17.18; CRP 34.7--> now 4.5 AMS, Continues to Improve - reports worsening confusion and concern over possible stroke over past day - also reports pt. has hx/o AMS with prior UTIs -CT in ED negative for acute findings -MRI ordered for 06/26/17 - very mild senescent change, Cannot rule out mild encephalitis -2/2 Mutifactorial form metabolic and toxic encephalopathy - refused LP in ED -Will order viral/bacterial/fungal workup -Culture blood, culture urine, group B strep, herpes screen, RPR, respiratory panel, strep pneumonia, toxoplasma gondii -All negative so far -Nursing bedside swallow screen - passed -[employer] swallow evaluation -Rocephin, vancomycin, zosyn--> discontinue rocephin-->s -Contact precautions -NPO for now untill swallow eval/mentation improves--> advance to continuous carb diet -Dexamethasone -Much more alert today and improving Renal Insufficiency -Unsure of baseline -Creatinine 1.2-->1.3-->1.6-->1.7 now 1.4 -Caution with nephrotoxic medications Elevated BNP -Does not appear to have CHF history although on Lasix for edema per old notes -BNP 76933 in ED-->43521--> now [id number] -Diurese with caution due to renal insufficiency -Echo 06/27/17:LVEF 45% with Grade 2 Diastolic Dysfunction -CXR on 06/26/17 shows no pulmonary vascular congestion Hyperthyroidism -Subclinical Hypethyroidism -TSH 0.153; T4 1.52 -Defer to PCP to f/u Malignant Hypertension -Poor measuring device vs technique vs lack of cooperation from the patient - Will optimized current BP; continue BB and ACEI - PRN Lasic; added Maxzide in AM and PRN Clonidine for BP > 200/100 mmHg Resolved: Hypokalemia -K2.7 in ED -->3.4--> 3.6 -Supplemented -Pharmacy to monitor and supplement Hypernatremia -Sodium 151--> 145 -Start D5W -Monitor Chronic: Fibromyalgia Chronic low back pain Type II DM on insulin- continue home meds, sliding scale insulin, 4 times a day before meals and bedtime glucose checks. 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 Pedro in [place] LOS > 96hrs due to slow response to treatment
[2017-06-29] MEDS: Formoterol/Mometasone 200-5 MCG 8.8 GM Inhaler IH SCH ×2 (06:56→21:26)
[2017-06-29] MEDS: Montelukast 10 MG Tab PO SCH (08:23)
[2017-06-29] MEDS: amLODIPine 10 MG Tab PO SCH (08:23)
[2017-06-29] MEDS: Citalopram 20 MG Tab PO SCH (08:23)
[2017-06-29] MEDS: Lisinopril 20 MG Tab PO SCH (08:23)
[2017-06-29] MEDS: Saccharomyces Boulardii (Probiotic) 250 MG Cap PO SCH ×2 (08:23→21:07)
[2017-06-29] MEDS: Metoprolol Succinate 50 MG Tab.ER PO SCH (08:23)
[2017-06-29] MEDS: Insulin Detemir 100 Units/ML 3 ML Pen SUBCUT SCH ×2 (08:24→21:05)
[2017-06-29] MEDS: Aspirin 81 MG Tab.EC PO SCH (08:24)
[2017-06-29] MEDS: HYDROCHLOROTHIAZIDE PO SCH (08:26)
[2017-06-29] MEDS: TRIAMTERENE PO SCH (08:26)
[2017-06-29] MEDS: Enoxaparin 40 MG/0.4 ML Syringe SUBCUT SCH (11:25)
[2017-06-29] MEDS: Acetaminophen 325 MG Tab PO PRN (11:26)
[2017-06-29] MEDS: cefTRIAXone 2 GM in Sodium Chloride 0.9% 100 ML IV SCH (17:03)
[2017-06-29] MEDS ORDERED: Bumetanide 1 MG/4 ML MDV IVPUSH ONE (19:01)
[2017-06-29] MEDS ORDERED: cloNIDine 0.1 MG Tab PO PRN (19:02)
[2017-06-30] MEDS: Formoterol/Mometasone 200-5 MCG 8.8 GM Inhaler IH SCH ×2 (06:40→21:31)
--- NOTE | 2017-06-30 06:50 | PCM.PN ---
- General Info Date of Service: 06/30/17 Admission Dx/Problem (Free Text): Pyelonephritis Subjective Update: Follow Up Functional Status: Reports: Pain Controlled, Tolerating Diet, Ambulating, Urinating. Denies: New Symptoms - Review of Systems General: Denies: Fever, Weakness, Fatigue, Malaise HEENT: Reports: No Symptoms Pulmonary: Denies: Shortness of Breath Cardiovascular: Denies: Chest Pain, Palpitations, Dyspnea on Exertion, Edema, Lightheadedness Gastrointestinal: Denies: Abdominal Pain, Nausea, Vomiting Genitourinary: Reports: No Symptoms Musculoskeletal: Reports: No Symptoms Skin: Denies: Cyanosis, Jaundice, Mottled, Pallor, Diaphoresis Neurological: Reports: Weakness, Gait Disturbance. Denies: Confusion, Pre- Existing Deficit Psychiatric: Denies: Depression, Anxiety, Agitation, Cravings, Hallucinations Systems Review Comment:: No significant overnight or acute issues. She is alert/awake and very reasonable. She does not remember much what happened. She complaints of back pain. She has no other acute issues. - Patient Data Vitals - Most Recent: Last Vital Signs Temp 36.3 C 06/30/17 03:20 Pulse 98 06/30/17 03:20 Resp 20 06/30/17 03:20 BP 96/86 06/30/17 03:20 Pulse Ox 96 06/30/17 06:40 Weight - Most Recent: 101.877 kg I&O - Last 24 Hours: Intake & Output 06/29/17 06/29/17 06/30/17 14:59 22:59 06:59 Intake Total 440 1200 1000 Output Total 275 1550 975 Balance 165 -350 25 Lab Results Last 24 Hours: Laboratory Results - last 24 hr 06/29/17 06/29/17 06/29/17 Range/Units 06:01 06:01 06:01 Manual Slide Review Abnormal smear Sodium 145 (136-145) mEq/L Potassium 3.6 (3.5-5.1) mEq/L Chloride 112 H (98-107) mEq/L Carbon Dioxide 22 (21-32) mEq/L Anion Gap 14.6 (5-15) BUN 40 H (7-18) mg/dL Creatinine 1.4 H (0.55-1.02) mg/dL Est Cr Clr Drug Dosing 30.84 mL/min Estimated GFR (MDRD) 38 (>60) mL/min BUN/Creatinine Ratio 28.6 H (14-18) Glucose 236 H (80-115) mg/dL POC Glucose (80-115) mg/dL Calcium 8.8 (8.5-10.1) mg/dL Magnesium 2.2 (1.8-2.4) mg/dl C-Reactive Protein 4.5 H* (<1.0) mg/dL NT-Pro-B Natriuret Pep 63244 H (0-125) pg/mL 06/29/17 06/29/17 06/29/17 Range/Units 11:24 17:01 21:03 Manual Slide Review Sodium (136-145) mEq/L Potassium (3.5-5.1) mEq/L Chloride (98-107) mEq/L Carbon Dioxide (21-32) mEq/L Anion Gap (5-15) BUN (7-18) mg/dL Creatinine (0.55-1.02) mg/dL Est Cr Clr Drug Dosing mL/min Estimated GFR (MDRD) (>60) mL/min BUN/Creatinine Ratio (14-18) Glucose (80-115) mg/dL POC Glucose 197 H 198 H 278 H (80-115) mg/dL Calcium (8.5-10.1) mg/dL Magnesium (1.8-2.4) mg/dl C-Reactive Protein (<1.0) mg/dL NT-Pro-B Natriuret Pep (0-125) pg/mL Terry Results Last 24 Hours: Microbiology 06/28/17 07:15 Aerobic Blood Culture - Preliminary Blood - Venous NO GROWTH AFTER 1 DAY Anaerobic Blood Culture - Preliminary NO GROWTH AFTER 1 DAY 06/28/17 07:30 Aerobic Blood Culture - Preliminary Blood - Venous - Lab Draw NO GROWTH AFTER 1 DAY Anaerobic Blood Culture - Preliminary NO GROWTH AFTER 1 DAY Med Orders - Current: Current Medications Acetaminophen (Tylenol) 650 mg PO Q4H PRN PRN Reason: Pain/Fever Last Admin: 06/29/17 11:26 Dose: 650 mg Albuterol/Ipratropium (Duoneb 3.0-0.5 Mg/3 Ml) 3 ml NEB Q4H PRN PRN Reason: Shortness Of Breath/wheezing Last Admin: 06/25/17 20:00 Dose: 3 ml Amlodipine Besylate (Norvasc) 10 mg PO DAILY [facility] Last Admin: 06/29/17 08:23 Dose: 10 mg Aspirin (Halfprin) 81 mg PO DAILY [facility] Last Admin: 06/29/17 08:24 Dose: 81 mg Citalopram Hydrobromide (Celexa) 20 mg PO DAILY [facility] Last Admin: 06/29/17 08:23 Dose: 20 mg Clonidine HCl (Catapres-Tts 3) 0.3 mg TRDERM Q7D [facility] Last Admin: 06/28/17 11:34 Dose: 0.3 mg Clonidine HCl (Catapres) 0.1 mg PO Q8H PRN PRN Reason: Hypertension Dextrose/Water (Dextrose 50% In Water) 50 ml IVPUSH ASDIRECTED PRN PRN Reason: Hypoglycemia Enoxaparin Sodium (Lovenox) 40 mg SUBCUT DAILY [facility] Last Admin: 06/29/17 11:25 Dose: 40 mg Hydralazine HCl (Apresoline) 20 mg IVPUSH Q4H PRN PRN Reason: Hypertension Last Admin: 06/29/17 00:36 Dose: 20 mg Ceftriaxone Sodium 2 gm/ (Sodium Chloride) 100 mls @ 100 mls/hr IV Q24H [facility] Last Admin: 06/29/17 17:03 Dose: 100 mls/hr Insulin Aspart (Novolog) 0 unit SUBCUT QIDACANDBED [facility] PRN Reason: Protocol Last Admin: 06/29/17 21:04 Dose: 9 unit Insulin Detemir (Levemir) 7 unit SUBCUT BID [facility] Last Admin: 06/29/17 21:05 Dose: 7 unit Lisinopril (Prinivil) 20 mg PO DAILY [facility] Last Admin: 06/29/17 08:23 Dose: 20 mg Lorazepam (Ativan) 2 mg IVPUSH Q4H PRN PRN Reason: Seizures Lorazepam (Ativan) 1 mg IVPUSH Q4H PRN PRN Reason: Anxiety Last Admin: 06/28/17 02:11 Dose: 1 mg Magnesium Sulfate (Pharmacy To Dose - Magnesium Replacement) 1 dose .XX ASDIRECTED [facility] Metoprolol Succinate (Toprol Xl) 50 mg PO DAILY [facility] Last Admin: 06/29/17 08:23 Dose: 50 mg Metoprolol Tartrate (Lopressor) 5 mg IVPUSH Q4H PRN PRN Reason: Tachycardia Last Admin: 06/28/17 11:20 Dose: 5 mg Miscellaneous Information (Remove Patch) 0 ea TRDERM Q7D [facility] Mometasone Furoate/Formoterol Fumar (Dulera 200-5 Mcg) 2 puff IH BIDRT [facility] Last Admin: 06/30/17 06:40 Dose: 2 puff Montelukast Sodium (Singulair) 10 mg PO DAILY [facility] Last Admin: 06/29/17 08:23 Dose: 10 mg Ondansetron HCl (Zofran Odt) 4 mg PO Q6H PRN PRN Reason: nausea, able to take PO Ondansetron HCl (Zofran) 4 mg IV Q6H PRN PRN Reason: Nausea/Vomiting Pantoprazole Sodium (Protonix) 40 mg PO DAILY@0700 [facility] Last Admin: 06/29/17 06:02 Dose: 40 mg (Liraglutide 0.6 Mg) (Victoza) 0 each SUBCUT DAILY [facility] Last Admin: 06/29/17 08:26 Dose: Not Given Hydrochlorothiazide/Triamterene 25-37.5 Mg Tab 0 each PO DAILY [facility] Last Admin: 06/29/17 08:26 Dose: Not Given Potassium Chloride (Pharmacy To Dose - Potassium Replacement) 1 dose .XX ASDIRECTED [facility] Saccharomyces Boulardii (Florastor) 250 mg PO BID [facility] Last Admin: 06/29/17 21:07 Dose: 250 mg Sodium Chloride (Saline Flush) 10 ml FLUSH ASDIRECTED PRN PRN Reason: Keep Vein Open Last Admin: 06/25/17 11:52 Dose: 10 ml Triamterene/HCTZ (Dyazide 25-37.5 Mg) 1 each PO DAILY [facility] Discontinued Medications Acetaminophen (Tylenol) 650 mg RECTAL NOW ONE Stop: 06/25/17 11:42 Last Admin: 06/25/17 11:53 Dose: 650 mg Acetaminophen (Tylenol) 650 mg PO Q4H PRN PRN Reason: Pain (Mild 1-3)/fever Acetaminophen (Tylenol) 650 mg RECTAL Q4H PRN PRN Reason: Fever/pain (1-3) Bumetanide (Bumex) 0.5 mg IVPUSH ONETIME ONE Stop: 06/29/17 19:02 Last Admin: 06/29/17 21:06 Dose: 0.5 mg Dexamethasone (Dexamethasone) 36 mg IVPUSH Q12HR [facility] Stop: 06/28/17 09:00 Dexamethasone (Dexamethasone) Confirm Administered Dose 40 mg .ROUTE .STK-MED ONE Stop: 06/26/17 20:07 Last Admin: 06/26/17 20:31 Dose: Not Given Diazepam (Valium) 5 mg IVPUSH ONETIME ONE Stop: 06/26/17 11:39 Last Admin: 06/26/17 11:45 Dose: 5 mg Diazepam (Valium) 2 mg IVPUSH ONETIME ONE Stop: 06/27/17 09:01 Last Admin: 06/27/17 08:46 Dose: 2 mg Diazepam (Valium) 3 mg IVPUSH ONETIME ONE Stop: 06/27/17 11:31 Last Admin: 06/27/17 11:39 Dose: 3 mg Diltiazem HCl (Diltiazem) 10 mg IVPUSH ONETIME ONE Stop: 06/25/17 11:36 Last Admin: 06/25/17 11:51 Dose: 10 mg Diphtheria/Tetanus/Acell Pertussis (Adacel) 0.5 ml IM .ONCE ONE Stop: 06/26/17 07:20 Furosemide (Lasix) 10 mg IVPUSH NOW ONE Stop: 06/25/17 22:11 Last Admin: 06/25/17 23:01 Dose: 10 mg Hydromorphone HCl (Dilaudid) 0.5 mg IVPUSH ONETIME ONE Stop: 06/26/17 09:40 Last Admin: 06/26/17 09:52 Dose: 0.5 mg Sodium Chloride (Normal Saline) 1,000 mls @ 999 mls/hr IV ONETIME [facility] Last Admin: 06/25/17 11:51 Dose: 999 mls/hr Ceftriaxone Sodium 2 gm/ (Sodium Chloride) 100 mls @ 100 mls/hr IV ONETIME ONE Stop: 06/25/17 12:41 Last Admin: 06/25/17 11:54 Dose: 100 mls/hr Ceftriaxone Sodium 2 gm/ (Sodium Chloride) 100 mls @ 100 mls/hr IV Q24H [facility] Ceftriaxone Sodium 2 gm/ (Sodium Chloride) 100 mls @ 100 mls/hr IV Q12H [facility] Last Admin: 06/27/17 09:55 Dose: 100 mls/hr Vancomycin HCl 1 gm/Vancomycin HCl 500 mg/ Sodium Chloride 500 mls @ 250 mls/ hr IV ONETIME ONE Stop: 06/25/17 18:14 Last Admin: 06/25/17 17:35 Dose: 250 mls/hr Potassium Chloride 10 meq/ (Premix) 100 mls @ 100 mls/hr IV Q1H [facility] Stop: 06/25/17 22:14 Last Admin: 06/25/17 23:17 Dose: 100 mls/hr Dexamethasone 36 mg/ Sodium (Chloride) 53.6 mls @ 107.2 mls/hr IV Q12HR [facility] Stop: 06/27/17 09:29 Last Admin: 06/27/17 08:34 Dose: 107.2 mls/hr Vancomycin HCl 1 gm/Vancomycin HCl 250 mg/ Sodium Chloride 250 mls @ 250 mls/ hr IV Q24H [facility] Last Admin: 06/28/17 16:00 Dose: 250 mls/hr Magnesium Sulfate 2 gm/ Premix 50 mls @ 25 mls/hr IV ONETIME ONE Stop: 06/25/17 22:45 Last Admin: 06/25/17 21:31 Dose: 25 mls/hr Diltiazem HCl 125 mg/ Sodium (Chloride) 125 mls @ 5 mls/hr IV TITRATE [facility]; 5 MG /HR PRN Reason: Protocol Last Titration: 06/26/17 08:45 Dose: 0 mg/hr, 0 mls/hr Potassium Chloride 10 meq/ (Premix) 100 mls @ 100 mls/hr IV Q1H [facility] Stop: 06/26/17 11:29 Last Admin: 06/26/17 13:55 Dose: 75 mls/hr Piperacillin Sod/Tazobactam (Sod 4.5 gm/ Sodium Chloride) 100 mls @ 200 mls/hr IV ONETIME ONE Stop: 06/26/17 08:29 Last Admin: 06/26/17 08:19 Dose: 200 mls/hr Piperacillin Sod/Tazobactam (Sod 4.5 gm/ Sodium Chloride) 100 mls @ 25 mls/hr IV Q8H [facility] Last Admin: 06/28/17 08:39 Dose: 25 mls/hr Dextrose/Sodium Chloride (Dextrose 5%-Normal Saline) 1,000 mls @ 15 mls/hr IV ASDIRECTED [facility] Last Admin: 06/26/17 21:16 Dose: 15 mls/hr Sodium Chloride (Normal Saline) 1,000 mls @ 50 mls/hr IV ASDIRECTED [facility] Stop: 06/28/17 12:59 Last Infusion: 06/27/17 21:28 Dose: 15 mls/hr Propofol (Diprivan 100 Ml) Confirm Administered Dose 100 mls @ as directed .ROUTE .STK-MED ONE Stop: 06/27/17 21:21 Last Admin: 06/27/17 21:57 Dose: Not Given Potassium Chloride 10 meq/ (Premix) 100 mls @ 100 mls/hr IV Q1H [facility] Stop: 06/28/17 12:29 Last Admin: 06/28/17 14:19 Dose: 100 mls/hr Dextrose/Water (Dextrose 5% In Water) 1,000 mls @ 30 mls/hr IV ASDIRECTED [facility] Last Infusion: 06/28/17 21:54 Dose: 30 mls/hr Insulin Aspart (Novolog) 0 unit SUBCUT QIDACANDBED [facility] PRN Reason: Protocol Last Admin: 06/28/17 13:12 Dose: 4 unit Insulin Aspart (Novolog) 3 unit SUBCUT TIDAC [facility] Lorazepam (Ativan) 4 mg IVPUSH ONETIME ONE Stop: 06/25/17 15:42 Last Admin: 06/25/17 16:00 Dose: 2 mg Lorazepam (Ativan) 2 mg IVPUSH ONETIME ONE Stop: 06/26/17 11:19 Last Admin: 06/26/17 11:41 Dose: 2 mg Lorazepam (Ativan) 2 mg IVPUSH ONETIME ONE Stop: 06/26/17 11:31 Last Admin: 06/26/17 18:16 Dose: Not Given Lorazepam (Ativan) 2 mg IVPUSH ONETIME ONE Stop: 06/27/17 08:09 Last Admin: 06/27/17 08:33 Dose: 2 mg Methylprednisolone Sodium Succinate (Solu-Medrol) 125 mg IVPUSH ONETIME ONE Stop: 06/25/17 20:44 Last Admin: 06/25/17 23:45 Dose: Not Given Methylprednisolone Sodium Succinate (Solu-Medrol) 125 mg IVPUSH Q6H [facility] Non-Formulary Medication (Insulin Glargine,Hum.Rec.Anlog) 16 units SUBCUT DAILY [facility] Vancomycin HCl (Pharmacy To Dose - Vancomycin) 1 dose .XX ASDIRECTED [facility] - Exam General: Alert, Oriented, Cooperative, No Acute Distress HEENT: Pupils Equal, Pupils Reactive, EOMI, Mucous Membr. Moist/[place] Neck: Supple, Trachea Midline, No JVD, Other (short and thick) Lungs: Clear to Auscultation, Normal Respiratory Effort Cardiovascular: Regular Rate, Regular Rhythm GI/Abdominal Exam: Normal Bowel Sounds, Soft, Non-Tender, No Organomegaly, No Distention, No Abnormal Bruit, No Mass (Female) Exam: Deferred Back Exam: Normal Inspection, Decreased Range of Motion Extremities: Normal Inspection, Normal Range of Motion, Non-Tender, No Pedal Edema, Normal Capillary Refill, Pedal Edema Peripheral Pulses: 2+: Posterior Tibial (L), Posterior Tibial (R), Dorsalis Pedis (L), Dorsalis Pedis (R) Skin: Warm, Dry, Intact Neurological: No New Focal Deficit Psy/Mental Status: Alert, Normal Affect, Normal Mood - Problem List Review Problem List Initiated/Reviewed/Updated: Yes - My Orders Last 24 Hours: My Active Orders 06/29/17 10:49 Acetaminophen [Tylenol] 650 mg PO Q4H PRN 06/29/17 10:53 PT Evaluation and Treatment [CONS] Routine 06/29/17 11:00 Enoxaparin [Lovenox] 40 mg SUBCUT DAILY 06/29/17 19:02 cloNIDine [Catapres] 0.1 mg PO Q8H PRN 06/30/17 09:00 HCTZ/Triamterene [Dyazide 25-37.5 MG] 1 each PO DAILY 07/05/17 11:30 Remove Patch 0 ea TRDERM Q7D - Plan Plan:: I/P: 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 Mckoy, he recommended no antiviral agent since the patient is getting better but to continue current treatment -Informed patient at bedside about the abnormal test -Continue supportive care Bacteremia -Blood cultures positive for gram negative rods 07/17 -2/ UTI -Now on IV Rocephin daily -Repeat cultures- negative so for 2 day UTI, Complicated -History of 4 UTIs over past 3 years - last 12/16/16 and was hospitalized in [place] -Similar symptoms with all episodes per -Fever (104.4), confusion, agitation, foul smelling urine, Tachycardia -Rocephin started in ED - continue -UA not very impressive, Negative leukocyte esterase, nitrite -UA Cx pos for GNR and E. coli sensitive to Rocephin -No costophrenic angle tenderness -WBC 19.50--> 17.18--> now 12.42; CRP 34.7-->4.5 -Day 6 of Abx; will d/c after dose is given Hypokalemia -K 3.3 -2/2 inadequate intake -Pharmacy to monitor and supplement CHF w/o Exacerbation -Does not appear to have CHF history although on Lasix for edema per old notes -BNP 38746 in ED-->[id number]--> recent level [id number] -Diurese with caution due to renal insufficiency -Echo 06/27/17:LVEF 45% with Grade 2 Diastolic Dysfunction -CXR on 06/26/17 shows no pulmonary vascular congestion Hyperthyroidism -Subclinical Hypethyroidism -TSH 0.153; T4 1.52 -Defer to PCP to f/u Malignant Hypertension, Improved -Poor measuring device vs technique vs lack of cooperation from the patient -Will optimized current BP; continue BB and ACEI -PRN Lasix and PRN Clonidine for BP > 200/100 mmHg -Cut down on Maxzide po daily Resolved: Hypernatremia -Sodium 151--> 145 -Start D5W -Monitor S/p AMS, At baseline - reports worsening confusion and concern over possible stroke over past day - also reports pt. has hx/o AMS with prior UTIs -CT in ED negative for acute findings -MRI ordered for 06/26/17 - very mild senescent change, Cannot rule out mild encephalitis -2/2 Mutifactorial form metabolic and toxic encephalopathy - refused LP in ED -Will order viral/bacterial/fungal workup -Culture blood, culture urine, group B strep, herpes screen, RPR, respiratory panel, strep pneumonia, toxoplasma gondii -All negative so far -Nursing bedside swallow screen - passed -TOPOGRAPHICAL SURVEYOR swallow evaluation -Rocephin, vancomycin, zosyn--> discontinue rocephin-->s -Contact precautions -NPO for now untill swallow eval/mentation improves--> advance to continuous carb diet -Dexamethasone -Much more alert today and improving Renal Insufficiency, At baseline -Unsure of baseline -Creatinine 1.2--> now 1.3 -Caution with nephrotoxic medications Chronic: Fibromyalgia and Chronic low back pain, resume gabapentin and home dose percocet Type II DM on insulin- continue home meds, sliding scale insulin, 4 times a day before meals and bedtime glucose checks. 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 Pedro in [place] LOS > 96hrs due to slow response to treatment, she may also benefit with SNF/ Rehab after discharge
[2017-06-30] MEDS: Pantoprazole 40 MG Tab.CR PO SCH (06:51)
[2017-06-30] MEDS: Acetaminophen 325 MG Tab PO PRN ×2 (06:52→13:46)
[2017-06-30] MEDS: Insulin Aspart 100 Units/ML 3 ML Pen SUBCUT SCH ×4 (08:05→21:01)
[2017-06-30] MEDS ORDERED: Hydrochlorothiazide/Triamterene 25-37.5 MG Cap PO SCH (09:00)
[2017-06-30] MEDS ORDERED: Potassium Chloride 20 MEQ Tab.ER PO ONE (09:00)
[2017-06-30] MEDS: Enoxaparin 40 MG/0.4 ML Syringe SUBCUT SCH (09:46)
[2017-06-30] MEDS: Aspirin 81 MG Tab.EC PO SCH (09:47)
[2017-06-30] MEDS: Saccharomyces Boulardii (Probiotic) 250 MG Cap PO SCH (09:47)
[2017-06-30] MEDS: Metoprolol Succinate 50 MG Tab.ER PO SCH (09:48)
[2017-06-30] MEDS: Montelukast 10 MG Tab PO SCH (09:56)
[2017-06-30] MEDS: Citalopram 20 MG Tab PO SCH (09:56)
[2017-06-30] MEDS: amLODIPine 10 MG Tab PO SCH (09:56)
[2017-06-30] MEDS: TRIAMTERENE PO SCH (10:05)
[2017-06-30] MEDS: HYDROCHLOROTHIAZIDE PO SCH (10:05)
[2017-06-30] MEDS: Insulin Detemir 100 Units/ML 3 ML Pen SUBCUT SCH ×2 (10:06→21:00)
[2017-06-30] MEDS: Lisinopril 20 MG Tab PO SCH (10:35)
[2017-06-30] MEDS: cefTRIAXone 2 GM in Sodium Chloride 0.9% 100 ML IV SCH (16:40)
[2017-06-30] MEDS: Gabapentin 100 MG Cap PO SCH (21:02)
[2017-06-30] MEDS: Acetaminophen/oxyCODONE 325-5 MG Tab PO SCH (21:03)
[2017-06-30] MEDS: oxyCODONE 5 MG Tab PO SCH (21:04)
[2017-07-01] MEDS: Insulin Aspart 100 Units/ML 3 ML Pen SUBCUT SCH ×4 (06:13→21:09)
[2017-07-01] MEDS: Formoterol/Mometasone 200-5 MCG 8.8 GM Inhaler IH SCH ×2 (06:33→20:56)
[2017-07-01] MEDS: Pantoprazole 40 MG Tab.CR PO SCH (06:36)
[2017-07-01] MEDS: Gabapentin 100 MG Cap PO SCH ×3 (08:22→21:03)
[2017-07-01] MEDS: oxyCODONE 5 MG Tab PO SCH ×3 (08:23→21:02)
[2017-07-01] MEDS: Lisinopril 20 MG Tab PO SCH (08:23)
[2017-07-01] MEDS: Aspirin 81 MG Tab.EC PO SCH (08:24)
[2017-07-01] MEDS: Metoprolol Succinate 50 MG Tab.ER PO SCH (08:24)
[2017-07-01] MEDS: Citalopram 20 MG Tab PO SCH (08:24)
[2017-07-01] MEDS: Acetaminophen/oxyCODONE 325-5 MG Tab PO SCH ×3 (08:24→21:01)
[2017-07-01] MEDS: Montelukast 10 MG Tab PO SCH (08:25)
[2017-07-01] MEDS: Enoxaparin 40 MG/0.4 ML Syringe SUBCUT SCH (08:25)
[2017-07-01] MEDS: amLODIPine 10 MG Tab PO SCH (08:25)
[2017-07-01] MEDS: Insulin Detemir 100 Units/ML 3 ML Pen SUBCUT SCH ×2 (08:26→21:07)
[2017-07-01] MEDS: HYDROCHLOROTHIAZIDE PO SCH (08:28)
[2017-07-01] MEDS: TRIAMTERENE PO SCH (08:28)
[2017-07-01] MEDS: Hydrochlorothiazide/Triamterene 25-37.5 MG Cap PO SCH (09:33)
--- NOTE | 2017-07-01 16:24 | PCM.PN ---
- General Info Date of Service: 07/01/17 Admission Dx/Problem (Free Text): Pyelonephritis Subjective Update: In to see Noemi today. She is lying in bed. She is communicating very well. Appears to have no confusion now. She does have some memory issues with the past events and her illness but overall she is doing quite well. No concerns. No concerns from nursing. Her appetite is returning. Functional Status: Reports: Pain Controlled, Tolerating Diet, Ambulating, Urinating, Incentive Spirometry. Denies: New Symptoms - Review of Systems General: Reports: No Symptoms. Denies: Weakness, Fatigue, Malaise HEENT: Reports: No Symptoms Pulmonary: Reports: No Symptoms. Denies: Shortness of Breath, Cough, Sputum Cardiovascular: Reports: No Symptoms. Denies: Chest Pain, Palpitations, Dyspnea on Exertion Gastrointestinal: Reports: No Symptoms. Denies: Abdominal Pain, Constipation, Diarrhea, Nausea, Vomiting Genitourinary: Reports: No Symptoms Musculoskeletal: Reports: No Symptoms Skin: Reports: No Symptoms Neurological: Reports: No Symptoms Psychiatric: Reports: No Symptoms - Patient Data Vitals - Most Recent: Last Vital Signs Temp 98.2 F 07/01/17 16:19 Pulse 71 07/01/17 16:19 Resp 16 07/01/17 16:19 BP 101/43 L 07/01/17 16:19 Pulse Ox 94 L 07/01/17 16:19 Weight - Most Recent: 227 lb 4.8 oz I&O - Last 24 Hours: Intake & Output 07/01/17 07/01/17 07/01/17 06:59 14:59 22:59 Intake Total 700 240 240 Output Total 801 Balance -101 240 240 Lab Results Last 24 Hours: Laboratory Results - last 24 hr 06/30/17 06/30/17 07/01/17 Range/Units 16:34 20:59 06:11 WBC (3.98-10.04) K/mm3 RBC (3.98-5.22) M/mm3 Hgb (11.2-15.7) gm/L Hct (34.1-44.9) % MCV (79.4-94.8) fl MCH (25.6-32.2) pg MCHC (32.2-35.5) g/dl RDW Std Deviation (36.4-46.3) fL Plt Count (182-369) K/mm3 MPV (9.4-12.3) fl Neut % (Auto) (34.0-71.1) % Lymph % (Auto) (19.3-51.7) % [place] % (Auto) (4.7-12.5) % Eos % (Auto) (0.7-5.8) Baso % (Auto) (0.1-1.2) % Neut # (Auto) (1.56-6.13) K/mm3 Lymph # (Auto) (1.18-3.74) K/mm3 [place] # (Auto) (0.24-0.36) K/mm3 Eos # (Auto) (0.04-0.36) K/mm3 Baso # (Auto) (0.01-0.08) K/mm3 Manual Slide Review Sodium (136-145) mEq/L Potassium (3.5-5.1) mEq/L Chloride (98-107) mEq/L Carbon Dioxide (21-32) mEq/L Anion Gap (5-15) BUN (7-18) mg/dL Creatinine (0.55-1.02) mg/dL Est Cr Clr Drug Dosing mL/min Estimated GFR (MDRD) (>60) mL/min BUN/Creatinine Ratio (14-18) Glucose (80-115) mg/dL POC Glucose 233 H 245 H 143 H (80-115) mg/dL Calcium (8.5-10.1) mg/dL 07/01/17 07/01/17 07/01/17 Range/Units 09:54 09:54 10:46 WBC 11.86 H (3.98-10.04) K/mm3 RBC 4.97 (3.98-5.22) M/mm3 Hgb 13.9 (11.2-15.7) gm/L Hct 42.8 (34.1-44.9) % MCV 86.1 (79.4-94.8) fl MCH 28.0 (25.6-32.2) pg MCHC 32.5 (32.2-35.5) g/dl RDW Std Deviation 45.9 (36.4-46.3) fL Plt Count 216 (182-369) K/mm3 MPV 12.6 H (9.4-12.3) fl Neut % (Auto) 60.4 (34.0-71.1) % Lymph % (Auto) 15.2 L (19.3-51.7) % [place] % (Auto) 9.3 (4.7-12.5) % Eos % (Auto) 7.8 H (0.7-5.8) Baso % (Auto) 1.7 H (0.1-1.2) % Neut # (Auto) 7.17 H (1.56-6.13) K/mm3 Lymph # (Auto) 1.80 (1.18-3.74) K/mm3 [place] # (Auto) 1.10 H (0.24-0.36) K/mm3 Eos # (Auto) 0.93 H (0.04-0.36) K/mm3 Baso # (Auto) 0.20 H (0.01-0.08) K/mm3 Manual Slide Review Abnormal smear Sodium 136 (136-145) mEq/L Potassium 3.9 (3.5-5.1) mEq/L Chloride 102 (98-107) mEq/L Carbon Dioxide 25 (21-32) mEq/L Anion Gap 12.9 (5-15) BUN 16 (7-18) mg/dL Creatinine 1.3 H (0.55-1.02) mg/dL Est Cr Clr Drug Dosing 33.21 mL/min Estimated GFR (MDRD) 41 (>60) mL/min BUN/Creatinine Ratio 12.3 L (14-18) Glucose 267 H (80-115) mg/dL POC Glucose 265 H (80-115) mg/dL Calcium 8.0 L (8.5-10.1) mg/dL Terry Results Last 24 Hours: Microbiology 06/26/17 05:46 Aerobic Blood Culture - Preliminary Blood - Venous Anaerobic Blood Culture - Preliminary 06/28/17 07:30 Aerobic Blood Culture - Preliminary Blood - Venous - Lab Draw NO GROWTH AFTER 3 DAYS Anaerobic Blood Culture - Preliminary NO GROWTH AFTER 3 DAYS 06/28/17 07:15 Aerobic Blood Culture - Preliminary Blood - Venous NO GROWTH AFTER 3 DAYS Anaerobic Blood Culture - Preliminary NO GROWTH AFTER 3 DAYS Med Orders - Current: Current Medications Acetaminophen (Tylenol) 650 mg PO Q4H PRN PRN Reason: Pain/Fever Last Admin: 06/30/17 13:46 Dose: 650 mg Albuterol/Ipratropium (Duoneb 3.0-0.5 Mg/3 Ml) 3 ml NEB Q4H PRN PRN Reason: Shortness Of Breath/wheezing Last Admin: 06/25/17 20:00 Dose: 3 ml Amlodipine Besylate (Norvasc) 10 mg PO DAILY [facility] Last Admin: 07/01/17 08:25 Dose: 10 mg Aspirin (Halfprin) 81 mg PO DAILY [facility] Last Admin: 07/01/17 08:24 Dose: 81 mg Citalopram Hydrobromide (Celexa) 20 mg PO DAILY [facility] Last Admin: 07/01/17 08:24 Dose: 20 mg Clonidine HCl (Catapres-Tts 3) 0.3 mg TRDERM Q7D [facility] Last Admin: 06/28/17 11:34 Dose: 0.3 mg Clonidine HCl (Catapres) 0.1 mg PO Q8H PRN PRN Reason: Hypertension Dextrose/Water (Dextrose 50% In Water) 50 ml IVPUSH ASDIRECTED PRN PRN Reason: Hypoglycemia Enoxaparin Sodium (Lovenox) 40 mg SUBCUT DAILY [facility] Last Admin: 07/01/17 08:25 Dose: 40 mg Gabapentin (Neurontin) 400 mg PO TID [facility] Last Admin: 07/01/17 14:54 Dose: 400 mg Hydralazine HCl (Apresoline) 20 mg IVPUSH Q4H PRN PRN Reason: Hypertension Last Admin: 06/29/17 00:36 Dose: 20 mg Insulin Aspart (Novolog) 0 unit SUBCUT QIDACANDBED [facility] PRN Reason: Protocol Last Admin: 07/01/17 10:56 Dose: 6 unit Insulin Detemir (Levemir) 7 unit SUBCUT BID [facility] Last Admin: 07/01/17 08:26 Dose: 7 unit Lisinopril (Prinivil) 20 mg PO DAILY [facility] Last Admin: 07/01/17 08:23 Dose: 20 mg Lorazepam (Ativan) 2 mg IVPUSH Q4H PRN PRN Reason: Seizures Lorazepam (Ativan) 1 mg IVPUSH Q4H PRN PRN Reason: Anxiety Last Admin: 06/28/17 02:11 Dose: 1 mg Magnesium Sulfate (Pharmacy To Dose - Magnesium Replacement) 1 dose .XX ASDIRECTED [facility] Metoprolol Succinate (Toprol Xl) 50 mg PO DAILY [facility] Last Admin: 07/01/17 08:24 Dose: 50 mg Metoprolol Tartrate (Lopressor) 5 mg IVPUSH Q4H PRN PRN Reason: Tachycardia Last Admin: 06/28/17 11:20 Dose: 5 mg Miscellaneous Information (Remove Patch) 0 ea TRDERM Q7D [facility] Mometasone Furoate/Formoterol Fumar (Dulera 200-5 Mcg) 2 puff IH BIDRT [facility] Last Admin: 07/01/17 06:33 Dose: 2 puff Montelukast Sodium (Singulair) 10 mg PO DAILY [facility] Last Admin: 07/01/17 08:25 Dose: 10 mg Ondansetron HCl (Zofran Odt) 4 mg PO Q6H PRN PRN Reason: nausea, able to take PO Ondansetron HCl (Zofran) 4 mg IV Q6H PRN PRN Reason: Nausea/Vomiting Oxycodone HCl (Oxycodone) 5 mg PO TID [facility] Last Admin: 07/01/17 14:55 Dose: 5 mg Oxycodone/Acetaminophen (Percocet 325-5 Mg) 1 tab PO TID [facility] Last Admin: 07/01/17 14:54 Dose: 1 tab Pantoprazole Sodium (Protonix) 40 mg PO DAILY@0700 [facility] Last Admin: 07/01/17 06:36 Dose: 40 mg (Liraglutide 0.6 Mg) (Victoza) 0 each SUBCUT DAILY [facility] Last Admin: 07/01/17 08:27 Dose: Not Given Hydrochlorothiazide/Triamterene 25-37.5 Mg Tab 0 each PO DAILY [facility] Last Admin: 07/01/17 08:28 Dose: Not Given Potassium Chloride (Pharmacy To Dose - Potassium Replacement) 1 dose .XX ASDIRECTED [facility] Sodium Chloride (Saline Flush) 10 ml FLUSH ASDIRECTED PRN PRN Reason: Keep Vein Open Last Admin: 06/25/17 11:52 Dose: 10 ml Triamterene/HCTZ (Dyazide 25-37.5 Mg) 0 each PO DAILY [facility] Last Admin: 07/01/17 09:33 Dose: Not Given Discontinued Medications Acetaminophen (Tylenol) 650 mg RECTAL NOW ONE Stop: 06/25/17 11:42 Last Admin: 06/25/17 11:53 Dose: 650 mg Acetaminophen (Tylenol) 650 mg PO Q4H PRN PRN Reason: Pain (Mild 1-3)/fever Acetaminophen (Tylenol) 650 mg RECTAL Q4H PRN PRN Reason: Fever/pain (1-3) Bumetanide (Bumex) 0.5 mg IVPUSH ONETIME ONE Stop: 06/29/17 19:02 Last Admin: 06/29/17 21:06 Dose: 0.5 mg Dexamethasone (Dexamethasone) 36 mg IVPUSH Q12HR [facility] Stop: 06/28/17 09:00 Dexamethasone (Dexamethasone) Confirm Administered Dose 40 mg .ROUTE .STK-MED ONE Stop: 06/26/17 20:07 Last Admin: 06/26/17 20:31 Dose: Not Given Diazepam (Valium) 5 mg IVPUSH ONETIME ONE Stop: 06/26/17 11:39 Last Admin: 06/26/17 11:45 Dose: 5 mg Diazepam (Valium) 2 mg IVPUSH ONETIME ONE Stop: 06/27/17 09:01 Last Admin: 06/27/17 08:46 Dose: 2 mg Diazepam (Valium) 3 mg IVPUSH ONETIME ONE Stop: 06/27/17 11:31 Last Admin: 06/27/17 11:39 Dose: 3 mg Diltiazem HCl (Diltiazem) 10 mg IVPUSH ONETIME ONE Stop: 06/25/17 11:36 Last Admin: 06/25/17 11:51 Dose: 10 mg Diphtheria/Tetanus/Acell Pertussis (Adacel) 0.5 ml IM .ONCE ONE Stop: 06/26/17 07:20 Furosemide (Lasix) 10 mg IVPUSH NOW ONE Stop: 06/25/17 22:11 Last Admin: 06/25/17 23:01 Dose: 10 mg Hydromorphone HCl (Dilaudid) 0.5 mg IVPUSH ONETIME ONE Stop: 06/26/17 09:40 Last Admin: 06/26/17 09:52 Dose: 0.5 mg Sodium Chloride (Normal Saline) 1,000 mls @ 999 mls/hr IV ONETIME [facility] Last Admin: 06/25/17 11:51 Dose: 999 mls/hr Ceftriaxone Sodium 2 gm/ (Sodium Chloride) 100 mls @ 100 mls/hr IV ONETIME ONE Stop: 06/25/17 12:41 Last Admin: 06/25/17 11:54 Dose: 100 mls/hr Ceftriaxone Sodium 2 gm/ (Sodium Chloride) 100 mls @ 100 mls/hr IV Q24H [facility] Ceftriaxone Sodium 2 gm/ (Sodium Chloride) 100 mls @ 100 mls/hr IV Q12H [facility] Last Admin: 06/27/17 09:55 Dose: 100 mls/hr Vancomycin HCl 1 gm/Vancomycin HCl 500 mg/ Sodium Chloride 500 mls @ 250 mls/ hr IV ONETIME ONE Stop: 06/25/17 18:14 Last Admin: 06/25/17 17:35 Dose: 250 mls/hr Potassium Chloride 10 meq/ (Premix) 100 mls @ 100 mls/hr IV Q1H [facility] Stop: 06/25/17 22:14 Last Admin: 06/25/17 23:17 Dose: 100 mls/hr Dexamethasone 36 mg/ Sodium (Chloride) 53.6 mls @ 107.2 mls/hr IV Q12HR [facility] Stop: 06/27/17 09:29 Last Admin: 06/27/17 08:34 Dose: 107.2 mls/hr Vancomycin HCl 1 gm/Vancomycin HCl 250 mg/ Sodium Chloride 250 mls @ 250 mls/ hr IV Q24H [facility] Last Admin: 06/28/17 16:00 Dose: 250 mls/hr Magnesium Sulfate 2 gm/ Premix 50 mls @ 25 mls/hr IV ONETIME ONE Stop: 06/25/17 22:45 Last Admin: 06/25/17 21:31 Dose: 25 mls/hr Diltiazem HCl 125 mg/ Sodium (Chloride) 125 mls @ 5 mls/hr IV TITRATE [facility]; 5 MG /HR PRN Reason: Protocol Last Titration: 06/26/17 08:45 Dose: 0 mg/hr, 0 mls/hr Potassium Chloride 10 meq/ (Premix) 100 mls @ 100 mls/hr IV Q1H [facility] Stop: 06/26/17 11:29 Last Admin: 06/26/17 13:55 Dose: 75 mls/hr Piperacillin Sod/Tazobactam (Sod 4.5 gm/ Sodium Chloride) 100 mls @ 200 mls/hr IV ONETIME ONE Stop: 06/26/17 08:29 Last Admin: 06/26/17 08:19 Dose: 200 mls/hr Piperacillin Sod/Tazobactam (Sod 4.5 gm/ Sodium Chloride) 100 mls @ 25 mls/hr IV Q8H [facility] Last Admin: 06/28/17 08:39 Dose: 25 mls/hr Dextrose/Sodium Chloride (Dextrose 5%-Normal Saline) 1,000 mls @ 15 mls/hr IV ASDIRECTED [facility] Last Admin: 06/26/17 21:16 Dose: 15 mls/hr Sodium Chloride (Normal Saline) 1,000 mls @ 50 mls/hr IV ASDIRECTED [facility] Stop: 06/28/17 12:59 Last Infusion: 06/27/17 21:28 Dose: 15 mls/hr Propofol (Diprivan 100 Ml) Confirm Administered Dose 100 mls @ as directed .ROUTE .STK-MED ONE Stop: 06/27/17 21:21 Last Admin: 06/27/17 21:57 Dose: Not Given Potassium Chloride 10 meq/ (Premix) 100 mls @ 100 mls/hr IV Q1H [facility] Stop: 06/28/17 12:29 Last Admin: 06/28/17 14:19 Dose: 100 mls/hr Ceftriaxone Sodium 2 gm/ (Sodium Chloride) 100 mls @ 100 mls/hr IV Q24H [facility] Last Admin: 06/30/17 16:40 Dose: 100 mls/hr Dextrose/Water (Dextrose 5% In Water) 1,000 mls @ 30 mls/hr IV ASDIRECTED [facility] Last Infusion: 06/28/17 21:54 Dose: 30 mls/hr Insulin Aspart (Novolog) 0 unit SUBCUT QIDACANDBED [facility] PRN Reason: Protocol Last Admin: 06/28/17 13:12 Dose: 4 unit Insulin Aspart (Novolog) 3 unit SUBCUT TIDAC [facility] Insulin Aspart (Novolog) 0 unit SUBCUT QIDACANDBED [facility] PRN Reason: Protocol Last Admin: 07/01/17 06:13 Dose: Not Given Lorazepam (Ativan) 4 mg IVPUSH ONETIME ONE Stop: 06/25/17 15:42 Last Admin: 06/25/17 16:00 Dose: 2 mg Lorazepam (Ativan) 2 mg IVPUSH ONETIME ONE Stop: 06/26/17 11:19 Last Admin: 06/26/17 11:41 Dose: 2 mg Lorazepam (Ativan) 2 mg IVPUSH ONETIME ONE Stop: 06/26/17 11:31 Last Admin: 06/26/17 18:16 Dose: Not Given Lorazepam (Ativan) 2 mg IVPUSH ONETIME ONE Stop: 06/27/17 08:09 Last Admin: 06/27/17 08:33 Dose: 2 mg Methylprednisolone Sodium Succinate (Solu-Medrol) 125 mg IVPUSH ONETIME ONE Stop: 06/25/17 20:44 Last Admin: 06/25/17 23:45 Dose: Not Given Methylprednisolone Sodium Succinate (Solu-Medrol) 125 mg IVPUSH Q6H [facility] Non-Formulary Medication (Insulin Glargine,Hum.Rec.Anlog) 16 units SUBCUT DAILY [facility] Potassium Chloride (Klor-Con M20) 40 meq PO ONETIME ONE Stop: 06/30/17 09:01 Last Admin: 06/30/17 09:47 Dose: 40 meq Saccharomyces Boulardii (Florastor) 250 mg PO BID [facility] Last Admin: 06/30/17 09:47 Dose: 250 mg Triamterene/HCTZ (Dyazide 25-37.5 Mg) 1 each PO DAILY [facility] Last Admin: 06/30/17 10:35 Dose: Not Given Vancomycin HCl (Pharmacy To Dose - Vancomycin) 1 dose .XX ASDIRECTED [facility] - Exam Quality Assessment: DVT Prophylaxis General: Alert, Oriented, Cooperative, No Acute Distress HEENT: Pupils Equal, Pupils Reactive, EOMI, Mucous Membr. Moist/[place] Neck: Supple, Trachea Midline, No JVD Lungs: Clear to Auscultation, Normal Respiratory Effort, Decreased Breath Sounds Cardiovascular: Regular Rate, Regular Rhythm GI/Abdominal Exam: Normal Bowel Sounds, Soft, Non-Tender, No Organomegaly, No Distention, No Abnormal Bruit, No Mass, Pelvis Stable (Female) Exam: Deferred Back Exam: Normal Inspection, Full Range of Motion Extremities: Normal Inspection, Normal Range of Motion, Non-Tender, Normal Capillary Refill, Pedal Edema (trace to 1+ ) Peripheral Pulses: 2+: Radial (L), Radial (R), Posterior Tibial (L), Posterior Tibial (R), Dorsalis Pedis (L), Dorsalis Pedis (R) Skin: Warm, Dry, Intact Neurological: No New Focal Deficit Psy/Mental Status: Alert, Normal Affect, Normal Mood - Problem List & Annotations (1) Fever SNOMED Code(s): 431530862 Code(s): R50.9 - FEVER, UNSPECIFIED Status: Acute Priority: High Current Visit: Yes Qualifiers: Fever type: due to other condition Qualified Code(s): R50.81 - Fever presenting with conditions classified elsewhere (2) UTI (urinary tract infection) SNOMED Code(s): 63919260 Code(s): N39.0 - URINARY TRACT INFECTION, SITE NOT SPECIFIED Status: Acute Priority: High Current Visit: Yes Qualifiers: Urinary tract infection type: acute cystitis Hematuria presence: without hematuria Qualified Code(s): N30.00 - Acute cystitis without hematuria (3) Altered mental status SNOMED Code(s): 843870266 Code(s): R41.82 - ALTERED MENTAL STATUS, UNSPECIFIED Status: Acute Priority: High Current Visit: Yes Qualifiers: Altered mental status type: unspecified Qualified Code(s): R41.82 - Altered mental status, unspecified (4) Type II diabetes mellitus SNOMED Code(s): 55751797 Code(s): E11.9 - TYPE 2 DIABETES MELLITUS WITHOUT COMPLICATIONS Status: Chronic Priority: Medium Current Visit: Yes Qualifiers: Diabetes mellitus complication status: without complication Diabetes mellitus terminal gauger insulin use: with terminal gauger use Qualified Code(s): E11.9 - Type 2 diabetes mellitus without complications; Z79.4 - retirement (current) use of insulin; Z79.4 - retirement (current) use of insulin; Z79.4 - retirement ( current) use of insulin; Z79.4 - retirement (current) use of insulin (5) Fibromyalgia SNOMED Code(s): 498420656 Code(s): M79.7 - FIBROMYALGIA Status: Chronic Priority: Low Current Visit: No (6) Asthma SNOMED Code(s): 819621926 Code(s): J45.909 - UNSPECIFIED ASTHMA, UNCOMPLICATED Status: Chronic Priority: Medium Current Visit: No Qualifiers: Asthma severity: unspecified severity Asthma persistence: unspecified Asthma complication type: unspecified Qualified Code(s): J45.909 - Unspecified asthma, uncomplicated (7) Other specified depressive episodes SNOMED Code(s): 62177196 Code(s): F32.89 - OTHER SPECIFIED DEPRESSIVE EPISODES Status: Chronic Priority: Low Current Visit: No (8) Anxiety SNOMED Code(s): 15169888 Code(s): F41.9 - ANXIETY DISORDER, UNSPECIFIED Status: Chronic Priority: Medium Current Visit: No (9) HTN (hypertension) SNOMED Code(s): 31968925 Code(s): I10 - ESSENTIAL (PRIMARY) HYPERTENSION Status: Chronic Priority : Medium Current Visit: No Qualifiers: Hypertension type: unspecified Qualified Code(s): I10 - Essential (primary ) hypertension (10) Obesity (BMI 30-39.9) SNOMED Code(s): 543909820 Code(s): E66.9 - OBESITY, UNSPECIFIED Status: Chronic Priority: Low Current Visit: No (11) GURVINDER (obstructive sleep apnea) SNOMED Code(s): 57046219 Code(s): G47.33 - OBSTRUCTIVE SLEEP APNEA (ADULT) (PEDIATRIC) Status: Chronic Priority: Low Current Visit: No (12) Insomnia SNOMED Code(s): 843436695 Code(s): G47.00 - INSOMNIA, UNSPECIFIED Status: Chronic Priority: Low Current Visit: No Qualifiers: Insomnia type: unspecified Qualified Code(s): G47.00 - Insomnia, unspecified (13) Elevated brain natriuretic peptide (BNP) level SNOMED Code(s): 802461623 Code(s): R79.89 - OTHER SPECIFIED ABNORMAL FINDINGS OF BLOOD CHEMISTRY Status: Acute Current Visit: Yes (14) Bacteremia SNOMED Code(s): 6768526 Code(s): R78.81 - BACTEREMIA Status: Acute Priority: High Current Visit : Yes - Problem List Review Problem List Initiated/Reviewed/Updated: Yes - My Orders Last 24 Hours: My Active Orders 07/01/17 11:00 Insulin Aspart [NovoLOG] See Protocol SUBCUT QIDACANDBED - Plan Plan:: I/P: 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 Mckoy, he recommended no antiviral agent since the patient is getting better but to continue current treatment -Informed patient at bedside about the abnormal test -Continue supportive care Bacteremia -Blood cultures positive for gram negative rods 07/17 -2/2 UTI -Now on IV Rocephin daily -Repeat cultures- negative so for 2 day CHF w/o Exacerbation -Does not appear to have CHF history although on Lasix for edema per old notes -BNP 89204 in ED-->46669--> recent level 43788 -Diurese with caution due to renal insufficiency -Echo 06/27/17:LVEF 45% with Grade 2 Diastolic Dysfunction -CXR on 06/26/17 shows no pulmonary vascular congestion Hyperthyroidism -Subclinical Hypethyroidism -TSH 0.153; T4 1.52 -Defer to PCP to f/u Resolved: UTI, Complicated -History of 4 UTIs over past 3 years - last 12/16/16 and was hospitalized in [place] -Similar symptoms with all episodes per -Fever (104.4), confusion, agitation, foul smelling urine, Tachycardia -Rocephin started in ED - continue -UA not very impressive, Negative leukocyte esterase, nitrite -UA Cx pos for GNR and E. coli sensitive to Rocephin -No costophrenic angle tenderness -WBC 19.50--> 17.18-->12.42-->now 11.86; CRP 34.7-->4.5 -Day 6 of Abx; will d/c after dose is given Hypokalemia -K 3.3 -2/2 inadequate intake -Pharmacy to monitor and supplement Malignant Hypertension, Improved -Poor measuring device vs technique vs lack of cooperation from the patient -Will optimized current BP; continue BB and ACEI -PRN Lasix and PRN Clonidine for BP > 200/100 mmHg -Cut down on Maxzide po daily Hypernatremia -Sodium 151--> 145 -Start D5W -Monitor S/p AMS, At baseline - reports worsening confusion and concern over possible stroke over past day - also reports pt. has hx/o AMS with prior UTIs -CT in ED negative for acute findings -MRI ordered for 06/26/17 - very mild senescent change, Cannot rule out mild encephalitis -2/2 Mutifactorial form metabolic and toxic encephalopathy - refused LP in ED -Will order viral/bacterial/fungal workup -Culture blood, culture urine, group B strep, herpes screen, RPR, respiratory panel, strep pneumonia, toxoplasma gondii -All negative so far -Nursing bedside swallow screen - passed -SHIRT SORTER swallow evaluation -Rocephin, vancomycin, zosyn--> discontinue rocephin-->s -Contact precautions -NPO for now untill swallow eval/mentation improves--> advance to continuous carb diet -Dexamethasone -Much more alert today and improving Renal Insufficiency, At baseline -Unsure of baseline -Creatinine 1.2--> now 1.3 -Caution with nephrotoxic medications Chronic: Fibromyalgia and Chronic low back pain, resume gabapentin and home dose percocet Type II DM on insulin- continue home meds, sliding scale insulin, 4 times a day before meals and bedtime glucose checks. Asthma Depression Anxiety HTN Obesity GURVINDER - does not tolerate CPAP Insomnia CAD with hx/o stenting Right sided inguinal hernia repair Plan: She remains stable and continues to improve clinically Transfered to Med-Surg today Other orders as indicated above CM/SW for discharge planning Routine AM labs Continue PT/OT DVT Prophylaxis: Lovenox SubQ Ambulated at tolerated Recommend SNF/Rehab for deconditioning Code Status: Full code; PCP: Dr. Pedro in [place] LOS > 96hrs due to slow response to treatment, she may also benefit with SNF/ Rehab after discharge
[2017-07-02] MEDS: Formoterol/Mometasone 200-5 MCG 8.8 GM Inhaler IH SCH (05:47)
[2017-07-02] MEDS: Pantoprazole 40 MG Tab.CR PO SCH (06:11)
[2017-07-02] MEDS: Aspirin 81 MG Tab.EC PO SCH (08:13)
[2017-07-02] MEDS: Montelukast 10 MG Tab PO SCH (08:14)
[2017-07-02] MEDS: Gabapentin 100 MG Cap PO SCH (08:14)
[2017-07-02] MEDS: Citalopram 20 MG Tab PO SCH (08:14)
[2017-07-02] MEDS: oxyCODONE 5 MG Tab PO SCH (08:14)
[2017-07-02] MEDS: Acetaminophen/oxyCODONE 325-5 MG Tab PO SCH (08:14)
[2017-07-02] MEDS: Enoxaparin 40 MG/0.4 ML Syringe SUBCUT SCH (08:15)
[2017-07-02] MEDS: Lisinopril 20 MG Tab PO SCH (08:15)
[2017-07-02] MEDS: Metoprolol Succinate 50 MG Tab.ER PO SCH (08:15)
[2017-07-02] MEDS: amLODIPine 10 MG Tab PO SCH (08:15)
[2017-07-02] MEDS: HYDROCHLOROTHIAZIDE PO SCH (08:16)
[2017-07-02] MEDS: TRIAMTERENE PO SCH (08:16)
[2017-07-02] MEDS: Insulin Aspart 100 Units/ML 3 ML Pen SUBCUT SCH ×2 (08:19→11:49)
[2017-07-02] MEDS: Insulin Detemir 100 Units/ML 3 ML Pen SUBCUT SCH (08:20)
[2017-07-02] MEDS: Hydrochlorothiazide/Triamterene 25-37.5 MG Cap PO SCH (08:34)
--- NOTE | 2017-07-02 13:22 | PCM.DCSUM1 ---
Discharge Summary - Hospital Course HPI Initial Comments: Noemi Willams is a 66 yo female presents for ED today via [facility] with complaints of fever, vomiting, confusion, agitation, concern for possible stroke. Her reports that she became ill yesterday with nausea and vomiting and has not been able to eat or drink well. Reports confusion started yesterday evening and she had a very restless night. She had little to eat or drink today. In the ED she's had a high-grade fever. Her is not sure when the fever started. There is been no diarrhea, chest pain, difficulty breathing, headache. reports that she's had similar symptoms about a year ago that resolved quickly with medical treatment at that time she was said to have a UTI. In the ED was 100.4 Fahrenheit. Pulse 132. Respirations 16. Blood pressure 162/105. Pulse ox 94%. 12-lead EKG is obtained which shows a flutter at a rate of 132 with an apparent 2-1 AV block. Also mild conduction delay and diffuse nonspecific ST changes noted. Labs are obtained: WBC is 19.73. Hemoglobin 15. Hematocrit 43.5. She was normocytic. Platelets are elevated at 104,000. Neutrophils are high at 90.1%. Sodium was 139. Potassium is very low at 2.8. Chloride 101. CO2 is 26. Anion gap 14.8. Glucose is 227. BUN is 13. Creatinine 1.2. EGFR is 45. Albumin is low at 2.7. Bilirubin is high at 2.0. Liver enzymes good with ALT at 19, AST at 26, alkaline phosphatase at 113. CRP was very high at 34.7. BNP was very high at 14,508. Lactic acid was 2.0. UA was obtained and had a cloudy appearance. Specific gravity was 1.35. Protein was noted to be 2+. A Harris was 2+. RBCs were 10-20. WBCs were 50- 75. There is many bacteria noted. Leukocyte esterase and nitrite were both negative. She was given 1 L fluid bolus. Blood cultures were obtained. 2 g IV Rocephin was started. A possible spinal tap was explored as symptoms may warrant this, however the refused. Has wants to treat for bladder infection and pyelonephritis as he states she's had this in the past with similar symptoms. Dr. Clay did discuss importance of this with the patient and her and they still refused. It was communicated that she could continue to get worse or need to be transferred to [place] without a spinal tap. Chest x-ray was obtained and interpreted by Dr. Littlejohn as "heart size slightly enlarged. Tortuous thoracic aorta seen. Atherosclerotic calcifications noted within the aortic knob. Lungs are clear. Bony structures are grossly intact." Head CT was obtained and interpeted by Dr. Littlejohn as "mild senescent change, nothing acute." She carries a history of: Fibromyalgia with chronic low back pain, type II DM on insulin, asthma, depression, anxiety, allergic rhinitis, HTN, obesity, obstructive sleep apneais reportedly intolerant of CPAP, chronic insomnia, history of coronary artery stenting, history of inguinal hernia repair on right side. She is a former smoker who quit in 1996. She is subsequently admitted to the ICU.She is a full code. Her PCP is Dr. Dmitriy Pedro in [place]. - Discharge Data Discharge Date: 07/02/17 (Admit date: 06/25/17) Discharge Disposition: Home, Self-Care 01 Condition: Good - Discharge Diagnosis/Problem(s) (1) Fever SNOMED Code(s): 244158084 ICD Code: R50.9 - FEVER, UNSPECIFIED Status: Resolved Priority: High Current Visit: Yes Qualifiers: Fever type: due to other condition Qualified Code(s): R50.81 - Fever presenting with conditions classified elsewhere (2) UTI (urinary tract infection) SNOMED Code(s): 45618028 ICD Code: N39.0 - URINARY TRACT INFECTION, SITE NOT SPECIFIED Status: Resolved Priority: High Current Visit: Yes Qualifiers: Urinary tract infection type: acute cystitis Hematuria presence: without hematuria Qualified Code(s): N30.00 - Acute cystitis without hematuria (3) Altered mental status SNOMED Code(s): 375570099 ICD Code: R41.82 - ALTERED MENTAL STATUS, UNSPECIFIED Status: Resolved Priority: High Current Visit: Yes Qualifiers: Altered mental status type: unspecified Qualified Code(s): R41.82 - Altered mental status, unspecified (4) Type II diabetes mellitus SNOMED Code(s): 48255117 ICD Code: E11.9 - TYPE 2 DIABETES MELLITUS WITHOUT COMPLICATIONS Status: Chronic Priority: Medium Current Visit: Yes Qualifiers: Diabetes mellitus complication status: without complication Diabetes mellitus director of government sales insulin use: with director of government sales use Qualified Code(s): E11.9 - Type 2 diabetes mellitus without complications; Z79.4 - choker hooker (current) use of insulin; Z79.4 - MCFP (current) use of insulin; Z79.4 - MCFP ( current) use of insulin; Z79.4 - choker hooker (current) use of insulin (5) Fibromyalgia SNOMED Code(s): 973117570 ICD Code: M79.7 - FIBROMYALGIA Status: Chronic Priority: Low Current Visit: No (6) Asthma SNOMED Code(s): 806752882 ICD Code: J45.909 - UNSPECIFIED ASTHMA, UNCOMPLICATED Status: Chronic Priority: Medium Current Visit: No Qualifiers: Asthma severity: unspecified severity Asthma persistence: unspecified Asthma complication type: unspecified Qualified Code(s): J45.909 - Unspecified asthma, uncomplicated (7) Other specified depressive episodes SNOMED Code(s): 91505011 ICD Code: F32.89 - OTHER SPECIFIED DEPRESSIVE EPISODES Status: Chronic Priority: Low Current Visit: No (8) Anxiety SNOMED Code(s): 23082273 ICD Code: F41.9 - ANXIETY DISORDER, UNSPECIFIED Status: Chronic Priority : Medium Current Visit: No (9) HTN (hypertension) SNOMED Code(s): 84093694 ICD Code: I10 - ESSENTIAL (PRIMARY) HYPERTENSION Status: Chronic Priority : Medium Current Visit: No Qualifiers: Hypertension type: unspecified Qualified Code(s): I10 - Essential (primary ) hypertension (10) Obesity (BMI 30-39.9) SNOMED Code(s): 930679537 ICD Code: E66.9 - OBESITY, UNSPECIFIED Status: Chronic Priority: Low Current Visit: No (11) GURVINDER (obstructive sleep apnea) SNOMED Code(s): 79828617 ICD Code: G47.33 - OBSTRUCTIVE SLEEP APNEA (ADULT) (PEDIATRIC) Status: Chronic Priority: Low Current Visit: No (12) Insomnia SNOMED Code(s): 929398879 ICD Code: G47.00 - INSOMNIA, UNSPECIFIED Status: Chronic Priority: Low Current Visit: No Qualifiers: Insomnia type: unspecified Qualified Code(s): G47.00 - Insomnia, unspecified (13) Elevated brain natriuretic peptide (BNP) level SNOMED Code(s): 068758627 ICD Code: R79.89 - OTHER SPECIFIED ABNORMAL FINDINGS OF BLOOD CHEMISTRY Status: Acute Current Visit: Yes (14) Bacteremia SNOMED Code(s): 3141608 ICD Code: R78.81 - BACTEREMIA Status: Resolved Priority: High Current Visit: Yes (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 SNOMED Code(s): 639637419 ICD Code: B00.9 - HERPESVIRAL INFECTION, UNSPECIFIED Status: Acute Priority: High Current Visit: Yes - Patient Summary/Data Consults: Consultations 06/25/17 16:27 Consult to Case Management [CONS] Routine 06/25/17 17:45 Consult to Speech Language Pathology [AUTOMOTIVE WELDER Evaluation and Treatment] [CONS] Routine 06/29/17 10:53 PT Evaluation and Treatment [CONS] Routine Labs Pending at D/C: Herpes virus 6 DNA, West Nile Virus, CRYPAB Recommended Follow-up Testing/Procedures: Follow-up with PCP in 7-10 days Hospital Course: I/P: Acute: 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 Mckoy, he recommended no antiviral agent since the patient is getting better but to continue current treatment -Informed patient at bedside about the abnormal test -Continue supportive care CHF w/o Exacerbation -Does not appear to have CHF history although on Lasix for edema per old notes -BNP 29303 in ED-->79149--> recent level 95144 -Diurese with caution due to renal insufficiency -Echo 06/27/17:LVEF 45% with Grade 2 Diastolic Dysfunction -CXR on 06/26/17 shows no pulmonary vascular congestion Hyperthyroidism -Subclinical Hypethyroidism -TSH 0.153; T4 1.52 -Defer to PCP to f/u Resolved: UTI, Complicated -History of 4 UTIs over past 3 years - last 12/16/16 and was hospitalized in [place] -Similar symptoms with all episodes per -Fever (104.4), confusion, agitation, foul smelling urine, Tachycardia -Rocephin started in ED - continue -UA not very impressive, Negative leukocyte esterase, nitrite -UA Cx pos for GNR and E. coli sensitive to Rocephin -No costophrenic angle tenderness -WBC 19.50--> 17.18-->12.42-->now 11.86; CRP 34.7-->4.5 -Day 6 of Abx; will d/c after dose is given Hypokalemia -K 3.3 -2/2 inadequate intake -Pharmacy to monitor and supplement Malignant Hypertension, Improved -Poor measuring device vs technique vs lack of cooperation from the patient -Will optimized current BP; continue BB and ACEI -PRN Lasix and PRN Clonidine for BP > 200/100 mmHg -Cut down on Maxzide po daily Hypernatremia -Sodium 151--> 145 -Start D5W -Monitor S/p AMS, At baseline - reports worsening confusion and concern over possible stroke over past day - also reports pt. has hx/o AMS with prior UTIs -CT in ED negative for acute findings -MRI ordered for 06/26/17 - very mild senescent change, Cannot rule out mild encephalitis -2/2 Mutifactorial form metabolic and toxic encephalopathy - refused LP in ED -Will order viral/bacterial/fungal workup -Culture blood, culture urine, group B strep, herpes screen, RPR, respiratory panel, strep pneumonia, toxoplasma gondii -All negative so far -Nursing bedside swallow screen - passed -AUTOMOTIVE WELDER swallow evaluation -Rocephin, vancomycin, zosyn--> discontinue rocephin-->s -Contact precautions -NPO for now untill swallow eval/mentation improves--> advance to continuous carb diet -Dexamethasone -Much more alert today and improving Renal Insufficiency, At baseline -Unsure of baseline -Creatinine 1.2--> now 1.3 -Caution with nephrotoxic medications Bacteremia -Blood cultures positive for gram negative rods 07/17 -2/2 UTI -Now on IV Rocephin daily--> discontinue -Repeat cultures- negative after 4 days Chronic: Fibromyalgia and Chronic low back pain, resume gabapentin and home dose percocet Type II DM on insulin- continue home meds, sliding scale insulin, 4 times a day before meals and bedtime glucose checks. Asthma Depression Anxiety HTN Obesity GURVINDER - does not tolerate CPAP Insomnia CAD with hx/o stenting Right sided inguinal hernia repair Plan: She remains stable and continues to improve clinically Transfered to Med-Surg today Other orders as indicated above CM/SW for discharge planning Routine AM labs Continue PT/OT DVT Prophylaxis: Lovenox SubQ Ambulated at tolerated Recommend SNF/Rehab for deconditioning Code Status: Full code; PCP: Dr. Pedro in [place] LOS > 96hrs due to slow response to treatment, she may also benefit with SNF/ Rehab after discharge Noemi has recovered quite well. She has no memory of early hospitalization over time in the ER. She did have multiple tests ran. So far all have been negative except for positive HSV-1 as noted above. She also had bacteremia and pyelonephritis. This has since resolved. Repeat blood cultures have been negative. Her altered mental status is completely resolved as well. PT/OT are recommending outpatient PT, however the patient does not believe that she will be utilizing the services. We did send the order along with her should she decide she would like PT. She should follow-up with her primary care provider in 7-10 days. She was not discharged home on any new medications. Her TSH was low and should be rechecked with her primary care provider in 4-6 weeks. This can be worked up further by her PCP.she'll be discharged home today with her . - Patient Instructions Diet: Diabetic Diet Activity: As Tolerated Driving: Do Not Drive (today ) Showering/Bathing: May Shower Notify Provider of: Fever, Increased Pain, Nausea and/or Vomiting (pain/burning with urination, altered mental status, ) - Discharge Plan Home Medications: Home Meds Albuterol [Proair HFA] 2 puff INH Q4HR PRN 06/25/17 [History] Aspirin 81 mg PO DAILY 06/25/17 [History] Citalopram Hydrobromide [Citalopram HBr] 20 mg PO DAILY 06/25/17 [History] Fluticasone/Salmeterol [Advair 500-50] 1 puff INH BID 06/25/17 [History] Gabapentin [Neurontin] 400 mg PO TID 06/25/17 [History] Insulin Glargine,Hum.Rec.Anlog [Lantus Solostar] 16 units SUBCUT DAILY 06/25/17 [History] Insulin Lispro [Humalog Kwikpen U-100] 3 units SUBCUT TID 06/25/17 [History] Liraglutide [Victoza] 0.6 mg SUBCUT DAILY 06/25/17 [History] Lisinopril 20 mg PO DAILY 06/25/17 [History] Metoprolol Succinate 50 mg PO DAILY 06/25/17 [History] Mometasone Furoate [Nasonex] 1 applic CURT DAILY 06/25/17 [History] Montelukast Sodium 10 mg PO DAILY 06/25/17 [History] Omeprazole 20 mg PO DAILY 06/25/17 [History] Ondansetron [Zofran ODT] 4 mg PO Q3H PRN 06/25/17 [History] Triamterene/Hydrochlorothiazid [Triamterene-HCTZ 37.5-25 MG] 0.5 tab PO DAILY [History] amLODIPine Besylate [Amlodipine Besylate] 10 mg PO DAILY 06/25/17 [History] traZODone 100 mg PO DAILY 06/25/17 [History] Acetaminophen/oxyCODONE [Percocet 325-10 MG] 1 tab PO TID 06/26/17 [History] Patient Handouts: Pyelonephritis, Adult, [id number], Bacteremia Forms: ED Department Discharge Referrals: Dmitriy Pedro MD [Primary Care Provider] - - General Info Date of Service: 07/02/17 Admission Dx/Problem (Free Text: Pyelonephritis Subjective Update: in to see Noemi. She has no complaints. She has been sleeping well. She would like to go home. This is reasonable as she is completely resolved of symptoms. Nursing has no concerns. Functional Status: Reports: Pain Controlled, Tolerating Diet, Ambulating, Urinating. Denies: New Symptoms - Review of Systems General: Reports: Weakness HEENT: Reports: No Symptoms Pulmonary: Reports: No Symptoms Cardiovascular: Reports: No Symptoms Gastrointestinal: Reports: No Symptoms Genitourinary: Reports: No Symptoms Musculoskeletal: Reports: No Symptoms Skin: Reports: No Symptoms Neurological: Reports: No Symptoms Psychiatric: Reports: No Symptoms - Patient Data Vitals - Most Recent: Last Vital Signs Temp 98.1 F 07/02/17 12:01 Pulse 77 07/02/17 12:01 Resp 20 07/02/17 07:54 BP 85/58 L 07/02/17 12:01 Pulse Ox 91 L 07/02/17 12:01 Weight - Most Recent: 223 lb 12.8 oz I&O - Last 24 hours: Intake & Output 07/01/17 07/02/17 07/02/17 22:59 06:59 14:59 Intake Total 1080 350 420 Output Total 250 600 Balance 830 -250 420 Lab Results - Last 24 hrs: Laboratory Results - last 24 hr 07/01/17 07/01/17 07/02/17 Range/Units 17:16 21:05 05:50 WBC 12.15 H (3.98-10.04) K/mm3 RBC 4.74 (3.98-5.22) M/mm3 Hgb 13.2 (11.2-15.7) gm/L Hct 41.4 (34.1-44.9) % MCV 87.3 (79.4-94.8) fl MCH 27.8 (25.6-32.2) pg MCHC 31.9 L (32.2-35.5) g/dl RDW Std Deviation 47.2 H (36.4-46.3) fL Plt Count 196 (182-369) K/mm3 MPV 13.1 H (9.4-12.3) fl Neut % (Auto) 51.1 (34.0-71.1) % Lymph % (Auto) 24.5 (19.3-51.7) % [place] % (Auto) 9.4 (4.7-12.5) % Eos % (Auto) 6.5 H (0.7-5.8) Baso % (Auto) 0.7 (0.1-1.2) % Neut # (Auto) 6.20 H (1.56-6.13) K/mm3 Lymph # (Auto) 2.98 (1.18-3.74) K/mm3 [place] # (Auto) 1.14 H (0.24-0.36) K/mm3 Eos # (Auto) 0.79 H (0.04-0.36) K/mm3 Baso # (Auto) 0.09 H (0.01-0.08) K/mm3 Manual Slide Review Abnormal smear Sodium (136-145) mEq/L Potassium (3.5-5.1) mEq/L Chloride (98-107) mEq/L Carbon Dioxide (21-32) mEq/L Anion Gap (5-15) BUN (7-18) mg/dL Creatinine (0.55-1.02) mg/dL Est Cr Clr Drug Dosing mL/min Estimated GFR (MDRD) (>60) mL/min BUN/Creatinine Ratio (14-18) Glucose (80-115) mg/dL POC Glucose 160 H 178 H (80-115) mg/dL Calcium (8.5-10.1) mg/dL 07/02/17 07/02/17 07/02/17 Range/Units 05:50 06:09 11:12 WBC (3.98-10.04) K/mm3 RBC (3.98-5.22) M/mm3 Hgb (11.2-15.7) gm/L Hct (34.1-44.9) % MCV (79.4-94.8) fl MCH (25.6-32.2) pg MCHC (32.2-35.5) g/dl RDW Std Deviation (36.4-46.3) fL Plt Count (182-369) K/mm3 MPV (9.4-12.3) fl Neut % (Auto) (34.0-71.1) % Lymph % (Auto) (19.3-51.7) % [place] % (Auto) (4.7-12.5) % Eos % (Auto) (0.7-5.8) Baso % (Auto) (0.1-1.2) % Neut # (Auto) (1.56-6.13) K/mm3 Lymph # (Auto) (1.18-3.74) K/mm3 [place] # (Auto) (0.24-0.36) K/mm3 Eos # (Auto) (0.04-0.36) K/mm3 Baso # (Auto) (0.01-0.08) K/mm3 Manual Slide Review Sodium 139 (136-145) mEq/L Potassium 3.8 (3.5-5.1) mEq/L Chloride 104 (98-107) mEq/L Carbon Dioxide 24 (21-32) mEq/L Anion Gap 14.8 (5-15) BUN 21 H (7-18) mg/dL Creatinine 1.3 H (0.55-1.02) mg/dL Est Cr Clr Drug Dosing 33.21 mL/min Estimated GFR (MDRD) 41 (>60) mL/min BUN/Creatinine Ratio 16.2 (14-18) Glucose 166 H (80-115) mg/dL POC Glucose 169 H 194 H (80-115) mg/dL Calcium 8.5 (8.5-10.1) mg/dL UYEN Results - Last 24 hrs: Microbiology 06/28/17 07:30 Aerobic Blood Culture - Preliminary Blood - Venous - Lab Draw NO GROWTH AFTER 4 DAYS Anaerobic Blood Culture - Preliminary NO GROWTH AFTER 4 DAYS 06/28/17 07:15 Aerobic Blood Culture - Preliminary Blood - Venous NO GROWTH AFTER 4 DAYS Anaerobic Blood Culture - Preliminary NO GROWTH AFTER 4 DAYS 06/26/17 05:46 Aerobic Blood Culture - Preliminary Blood - Venous Anaerobic Blood Culture - Preliminary Med Orders - Current: Current Medications Acetaminophen (Tylenol) 650 mg PO Q4H PRN PRN Reason: Pain/Fever Last Admin: 06/30/17 13:46 Dose: 650 mg Albuterol/Ipratropium (Duoneb 3.0-0.5 Mg/3 Ml) 3 ml NEB Q4H PRN PRN Reason: Shortness Of Breath/wheezing Last Admin: 06/25/17 20:00 Dose: 3 ml Amlodipine Besylate (Norvasc) 10 mg PO DAILY [facility] Last Admin: 07/02/17 08:15 Dose: 10 mg Aspirin (Halfprin) 81 mg PO DAILY [facility] Last Admin: 07/02/17 08:13 Dose: 81 mg Citalopram Hydrobromide (Celexa) 20 mg PO DAILY [facility] Last Admin: 07/02/17 08:14 Dose: 20 mg Clonidine HCl (Catapres-Tts 3) 0.3 mg TRDERM Q7D [facility] Last Admin: 06/28/17 11:34 Dose: 0.3 mg Clonidine HCl (Catapres) 0.1 mg PO Q8H PRN PRN Reason: Hypertension Dextrose/Water (Dextrose 50% In Water) 50 ml IVPUSH ASDIRECTED PRN PRN Reason: Hypoglycemia Enoxaparin Sodium (Lovenox) 40 mg SUBCUT DAILY [facility] Last Admin: 07/02/17 08:15 Dose: 40 mg Gabapentin (Neurontin) 400 mg PO TID [facility] Last Admin: 07/02/17 08:14 Dose: 400 mg Hydralazine HCl (Apresoline) 20 mg IVPUSH Q4H PRN PRN Reason: Hypertension Last Admin: 06/29/17 00:36 Dose: 20 mg Insulin Aspart (Novolog) 0 unit SUBCUT QIDACANDBED [facility] PRN Reason: Protocol Last Admin: 07/02/17 11:49 Dose: 2 unit Insulin Detemir (Levemir) 7 unit SUBCUT BID [facility] Last Admin: 07/02/17 08:20 Dose: 7 unit Lisinopril (Prinivil) 20 mg PO DAILY [facility] Last Admin: 07/02/17 08:15 Dose: 20 mg Lorazepam (Ativan) 2 mg IVPUSH Q4H PRN PRN Reason: Seizures Lorazepam (Ativan) 1 mg IVPUSH Q4H PRN PRN Reason: Anxiety Last Admin: 06/28/17 02:11 Dose: 1 mg Magnesium Sulfate (Pharmacy To Dose - Magnesium Replacement) 1 dose .XX ASDIRECTED [facility] Metoprolol Succinate (Toprol Xl) 50 mg PO DAILY [facility] Last Admin: 07/02/17 08:15 Dose: 50 mg Metoprolol Tartrate (Lopressor) 5 mg IVPUSH Q4H PRN PRN Reason: Tachycardia Last Admin: 06/28/17 11:20 Dose: 5 mg Miscellaneous Information (Remove Patch) 0 ea TRDERM Q7D [facility] Mometasone Furoate/Formoterol Fumar (Dulera 200-5 Mcg) 2 puff IH BIDRT [facility] Last Admin: 07/02/17 05:47 Dose: 2 puff Montelukast Sodium (Singulair) 10 mg PO DAILY [facility] Last Admin: 07/02/17 08:14 Dose: 10 mg Ondansetron HCl (Zofran Odt) 4 mg PO Q6H PRN PRN Reason: nausea, able to take PO Ondansetron HCl (Zofran) 4 mg IV Q6H PRN PRN Reason: Nausea/Vomiting Oxycodone HCl (Oxycodone) 5 mg PO TID [facility] Last Admin: 07/02/17 08:14 Dose: 5 mg Oxycodone/Acetaminophen (Percocet 325-5 Mg) 1 tab PO TID [facility] Last Admin: 07/02/17 08:14 Dose: 1 tab Pantoprazole Sodium (Protonix) 40 mg PO DAILY@0700 [facility] Last Admin: 07/02/17 06:11 Dose: 40 mg (Liraglutide 0.6 Mg) (Victoza) 0 each SUBCUT DAILY [facility] Last Admin: 07/02/17 08:16 Dose: Not Given Hydrochlorothiazide/Triamterene 25-37.5 Mg Tab 0 each PO DAILY [facility] Last Admin: 07/02/17 08:16 Dose: Not Given Potassium Chloride (Pharmacy To Dose - Potassium Replacement) 1 dose .XX ASDIRECTED [facility] Sodium Chloride (Saline Flush) 10 ml FLUSH ASDIRECTED PRN PRN Reason: Keep Vein Open Last Admin: 06/25/17 11:52 Dose: 10 ml Discontinued Medications Acetaminophen (Tylenol) 650 mg RECTAL NOW ONE Stop: 06/25/17 11:42 Last Admin: 06/25/17 11:53 Dose: 650 mg Acetaminophen (Tylenol) 650 mg PO Q4H PRN PRN Reason: Pain (Mild 1-3)/fever Acetaminophen (Tylenol) 650 mg RECTAL Q4H PRN PRN Reason: Fever/pain (1-3) Bumetanide (Bumex) 0.5 mg IVPUSH ONETIME ONE Stop: 06/29/17 19:02 Last Admin: 06/29/17 21:06 Dose: 0.5 mg Dexamethasone (Dexamethasone) 36 mg IVPUSH Q12HR [facility] Stop: 06/28/17 09:00 Dexamethasone (Dexamethasone) Confirm Administered Dose 40 mg .ROUTE .STK-MED ONE Stop: 06/26/17 20:07 Last Admin: 06/26/17 20:31 Dose: Not Given Diazepam (Valium) 5 mg IVPUSH ONETIME ONE Stop: 06/26/17 11:39 Last Admin: 06/26/17 11:45 Dose: 5 mg Diazepam (Valium) 2 mg IVPUSH ONETIME ONE Stop: 06/27/17 09:01 Last Admin: 06/27/17 08:46 Dose: 2 mg Diazepam (Valium) 3 mg IVPUSH ONETIME ONE Stop: 06/27/17 11:31 Last Admin: 06/27/17 11:39 Dose: 3 mg Diltiazem HCl (Diltiazem) 10 mg IVPUSH ONETIME ONE Stop: 06/25/17 11:36 Last Admin: 06/25/17 11:51 Dose: 10 mg Diphtheria/Tetanus/Acell Pertussis (Adacel) 0.5 ml IM .ONCE ONE Stop: 06/26/17 07:20 Furosemide (Lasix) 10 mg IVPUSH NOW ONE Stop: 06/25/17 22:11 Last Admin: 06/25/17 23:01 Dose: 10 mg Hydromorphone HCl (Dilaudid) 0.5 mg IVPUSH ONETIME ONE Stop: 06/26/17 09:40 Last Admin: 06/26/17 09:52 Dose: 0.5 mg Sodium Chloride (Normal Saline) 1,000 mls @ 999 mls/hr IV ONETIME [facility] Last Admin: 06/25/17 11:51 Dose: 999 mls/hr Ceftriaxone Sodium 2 gm/ (Sodium Chloride) 100 mls @ 100 mls/hr IV ONETIME ONE Stop: 06/25/17 12:41 Last Admin: 06/25/17 11:54 Dose: 100 mls/hr Ceftriaxone Sodium 2 gm/ (Sodium Chloride) 100 mls @ 100 mls/hr IV Q24H [facility] Ceftriaxone Sodium 2 gm/ (Sodium Chloride) 100 mls @ 100 mls/hr IV Q12H [facility] Last Admin: 06/27/17 09:55 Dose: 100 mls/hr Vancomycin HCl 1 gm/Vancomycin HCl 500 mg/ Sodium Chloride 500 mls @ 250 mls/ hr IV ONETIME ONE Stop: 06/25/17 18:14 Last Admin: 06/25/17 17:35 Dose: 250 mls/hr Potassium Chloride 10 meq/ (Premix) 100 mls @ 100 mls/hr IV Q1H [facility] Stop: 06/25/17 22:14 Last Admin: 06/25/17 23:17 Dose: 100 mls/hr Dexamethasone 36 mg/ Sodium (Chloride) 53.6 mls @ 107.2 mls/hr IV Q12HR [facility] Stop: 06/27/17 09:29 Last Admin: 06/27/17 08:34 Dose: 107.2 mls/hr Vancomycin HCl 1 gm/Vancomycin HCl 250 mg/ Sodium Chloride 250 mls @ 250 mls/ hr IV Q24H [facility] Last Admin: 06/28/17 16:00 Dose: 250 mls/hr Magnesium Sulfate 2 gm/ Premix 50 mls @ 25 mls/hr IV ONETIME ONE Stop: 06/25/17 22:45 Last Admin: 06/25/17 21:31 Dose: 25 mls/hr Diltiazem HCl 125 mg/ Sodium (Chloride) 125 mls @ 5 mls/hr IV TITRATE [facility]; 5 MG /HR PRN Reason: Protocol Last Titration: 06/26/17 08:45 Dose: 0 mg/hr, 0 mls/hr Potassium Chloride 10 meq/ (Premix) 100 mls @ 100 mls/hr IV Q1H [facility] Stop: 06/26/17 11:29 Last Admin: 06/26/17 13:55 Dose: 75 mls/hr Piperacillin Sod/Tazobactam (Sod 4.5 gm/ Sodium Chloride) 100 mls @ 200 mls/hr IV ONETIME ONE Stop: 06/26/17 08:29 Last Admin: 06/26/17 08:19 Dose: 200 mls/hr Piperacillin Sod/Tazobactam (Sod 4.5 gm/ Sodium Chloride) 100 mls @ 25 mls/hr IV Q8H [facility] Last Admin: 06/28/17 08:39 Dose: 25 mls/hr Dextrose/Sodium Chloride (Dextrose 5%-Normal Saline) 1,000 mls @ 15 mls/hr IV ASDIRECTED [facility] Last Admin: 06/26/17 21:16 Dose: 15 mls/hr Sodium Chloride (Normal Saline) 1,000 mls @ 50 mls/hr IV ASDIRECTED [facility] Stop: 06/28/17 12:59 Last Infusion: 06/27/17 21:28 Dose: 15 mls/hr Propofol (Diprivan 100 Ml) Confirm Administered Dose 100 mls @ as directed .ROUTE .STK-MED ONE Stop: 06/27/17 21:21 Last Admin: 06/27/17 21:57 Dose: Not Given Potassium Chloride 10 meq/ (Premix) 100 mls @ 100 mls/hr IV Q1H [facility] Stop: 06/28/17 12:29 Last Admin: 06/28/17 14:19 Dose: 100 mls/hr Ceftriaxone Sodium 2 gm/ (Sodium Chloride) 100 mls @ 100 mls/hr IV Q24H [facility] Last Admin: 06/30/17 16:40 Dose: 100 mls/hr Dextrose/Water (Dextrose 5% In Water) 1,000 mls @ 30 mls/hr IV ASDIRECTED [facility] Last Infusion: 06/28/17 21:54 Dose: 30 mls/hr Insulin Aspart (Novolog) 0 unit SUBCUT QIDACANDBED [facility] PRN Reason: Protocol Last Admin: 06/28/17 13:12 Dose: 4 unit Insulin Aspart (Novolog) 3 unit SUBCUT TIDAC [facility] Insulin Aspart (Novolog) 0 unit SUBCUT QIDACANDBED [facility] PRN Reason: Protocol Last Admin: 07/01/17 06:13 Dose: Not Given Lorazepam (Ativan) 4 mg IVPUSH ONETIME ONE Stop: 06/25/17 15:42 Last Admin: 06/25/17 16:00 Dose: 2 mg Lorazepam (Ativan) 2 mg IVPUSH ONETIME ONE Stop: 06/26/17 11:19 Last Admin: 06/26/17 11:41 Dose: 2 mg Lorazepam (Ativan) 2 mg IVPUSH ONETIME ONE Stop: 06/26/17 11:31 Last Admin: 06/26/17 18:16 Dose: Not Given Lorazepam (Ativan) 2 mg IVPUSH ONETIME ONE Stop: 06/27/17 08:09 Last Admin: 06/27/17 08:33 Dose: 2 mg Methylprednisolone Sodium Succinate (Solu-Medrol) 125 mg IVPUSH ONETIME ONE Stop: 06/25/17 20:44 Last Admin: 06/25/17 23:45 Dose: Not Given Methylprednisolone Sodium Succinate (Solu-Medrol) 125 mg IVPUSH Q6H [facility] Non-Formulary Medication (Insulin Glargine,Hum.Rec.Anlog) 16 units SUBCUT DAILY [facility] Potassium Chloride (Klor-Con M20) 40 meq PO ONETIME ONE Stop: 06/30/17 09:01 Last Admin: 06/30/17 09:47 Dose: 40 meq Saccharomyces Boulardii (Florastor) 250 mg PO BID [facility] Last Admin: 06/30/17 09:47 Dose: 250 mg Triamterene/HCTZ (Dyazide 25-37.5 Mg) 1 each PO DAILY [facility] Last Admin: 06/30/17 10:35 Dose: Not Given Triamterene/HCTZ (Dyazide 25-37.5 Mg) 0 each PO DAILY [facility] Last Admin: 07/02/17 08:34 Dose: Not Given Vancomycin HCl (Pharmacy To Dose - Vancomycin) 1 dose .XX ASDIRECTED [facility] - Exam Quality Assessment: Reports: DVT Prophylaxis General: Reports: Alert, Oriented, Cooperative, No Acute Distress HEENT: Reports: Pupils Equal, Pupils Reactive, EOMI, Mucous Membr. Moist/[place] Neck: Reports: Supple, Trachea Midline, No JVD Lungs: Reports: Clear to Auscultation, Normal Respiratory Effort, Decreased Breath Sounds Cardiovascular: Reports: Regular Rate, Regular Rhythm GI/Abdominal Exam: Normal Bowel Sounds, Soft, Non-Tender, No Organomegaly, No Distention, No Abnormal Bruit, No Mass, Pelvis Stable (Female) Exam: Deferred Rectal (Female) Exam: Deferred Back Exam: Reports: Normal Inspection, Full Range of Motion Extremities: Normal Inspection, Normal Range of Motion, Non-Tender, No Pedal Edema, Normal Capillary Refill Skin: Reports: Warm, Dry, Intact Neurological: Reports: No New Focal Deficit Psy/Mental Status: Reports: Alert, Normal Affect, Normal Mood *Q Meaningful Use (DIS) - VTE *Q VTE Criteria *Q: - Stroke *Q Stroke Criteria *Q: - AMI *Q AMI Criteria *Q:
== END 2017-07-02 15:20 | disposition home or self-care (01) | DRG 689 ==
LOC: EDBD 10:50 → JD.ED 10:50 → JD.ICU 14:15 → MERGE 14:15 → JD.MS 07-01 09:30
PROVIDERS: ADMIT Internal Medicine; ATTEND Internal Medicine
DX: N12 Tubulo-interstitial nephritis, not specified as acute or chronic (principal); N39.0 Urinary tract infection, site not specified; G04.81 Other encephalitis and encephalomyelitis; E87.0 Hyperosmolality and hypernatremia; R78.81 Bacteremia; B00.9 Herpesviral infection, unspecified; R41.82 Altered mental status, unspecified; E87.6 Hypokalemia; E11.9 Type 2 diabetes mellitus without complications; Z79.4 Long term (current) use of insulin; J45.909 Unspecified asthma, uncomplicated; M79.7 Fibromyalgia; F32.89 Other specified depressive episodes; F41.9 Anxiety disorder, unspecified; E66.9 Obesity, unspecified; G47.33 Obstructive sleep apnea (adult) (pediatric); G47.00 Insomnia, unspecified; N28.9 Disorder of kidney and ureter, unspecified; G89.29 Other chronic pain; M54.9 Dorsalgia, unspecified; I25.10 Atherosclerotic heart disease of native coronary artery without angina pectoris; Z95.5 Presence of coronary angioplasty implant and graft; E05.90 Thyrotoxicosis, unspecified without thyrotoxic crisis or storm; I11.0 Hypertensive heart disease with heart failure; I50.9 Heart failure, unspecified; J30.9 Allergic rhinitis, unspecified; Z87.891 Personal history of nicotine dependence; H54.7 Unspecified visual loss; Z88.8 Allergy status to other drugs, medicaments and biological substances; Z79.82 Long term (current) use of aspirin; Z79.899 Other long term (current) drug therapy
CPT/HCPCS: 36415; 70450; 71045; 80048; 80306; 81001; 83036; 83605; 84439; 84443; 85025; 85652; 86140 ×2; 86592; 87040; 87086; 87088 ×2; 87186; 87899; 93005; 96365; 96374; 99285; A9270; J0696; J3490; J7030; J7040; J7050; 51702; 70551; 70551-26; 80053; 80202; 82962; 83735; 83880; 84145; 86641; 86694; 86695; 86696; 86777; 86778; 86788; 86789; 87077; 87486; 87532; 87581; 87633; 87653; 87798; 93010; 93306; 94640; 94664; 97116-GP; 97162-GP; 99223; 99232; 99238; J0360; J1100; J1170; J1650; J1815-GY; J2060; J2543; J3360; J3370; J3475; J3480; J7042; J7060

== ENCOUNTER 2017-12-03 12:13 | Emergency (ER) | payer MEDICARE, OTHER ==
--- NOTE | 2017-12-03 12:32 | EDM.PDOC ---
ED HPI GENERAL MEDICAL PROBLEM - General Stated Complaint: SEND FROM [facility] Time Seen by Provider: 12/03/17 12:14 Source of Information: Reports: Patient, RN History Limitations: Reports: Altered Mental Status - History of Present Illness INITIAL COMMENTS - FREE TEXT/NARRATIVE: Patient is a 67-year-old female who presents to the ED from dialysis with concerns of having a stroke. Per dialysis nurse patient was acting confused with left-sided facial droop and left-sided weakness. She states son transported the patient to dialysis today. Patient's last known well time was approximately 6:30 this morning when she developed some nausea and issues with comprehending per son. She does have history of frequent UTIs, type 2 diabetes, fibromyalgia, anxiety, and insomnia. Patient weighted in at 79.4 kg. Last dry weight was 79 kg. She receives dialysis 3 times a week. She received 1000 units of heparin and 1 L of IV fluids prior to transporting to the ED. She did not undergo dialysis today. Patient complains of pain to her low back which is chronic. Per dialysis nursing staff patient is a full code. Headache Pain Score (Numeric/FACES): 5 - Related Data Allergies Allergy/AdvReac Type Severity Reaction Status Date / Time atorvastatin [From Lipitor] Allergy Hives Verified 06/25/17 13:48 dipyridamole Allergy Anaphylactic Verified 06/25/17 13:48 [From Persantine] Shock Iodinated Contrast- Oral and Allergy Renal Verified 12/03/17 12:24 IV Dye Failure mold Allergy Airway Verified 06/25/17 13:48 Tightness isosorbide [From Imdur] AdvReac Headache Verified 06/26/17 07:42 morphine AdvReac Nausea Verified 06/26/17 07:42 nitrofurantoin AdvReac Diarrhea Verified 06/26/17 07:42 [From Macrodantin] omeprazole [From Prilosec] AdvReac Chills Verified 06/26/17 07:42 Home Meds: Home Meds Albuterol [Proair HFA] 2 puff INH Q4HR PRN 06/25/17 [History] Aspirin 81 mg PO DAILY 06/25/17 [History] Citalopram Hydrobromide [Citalopram HBr] 20 mg PO DAILY 06/25/17 [History] Fluticasone/Salmeterol [Advair 500-50] 1 puff INH BID 06/25/17 [History] Gabapentin [Neurontin] 400 mg PO TID 06/25/17 [History] Insulin Glargine,Hum.Rec.Anlog [Lantus Solostar] 16 units SUBCUT DAILY 06/25/17 [History] Insulin Lispro [Humalog Kwikpen U-100] 3 units SUBCUT TID 06/25/17 [History] Liraglutide [Victoza] 0.6 mg SUBCUT DAILY 06/25/17 [History] Lisinopril 20 mg PO DAILY 06/25/17 [History] Metoprolol Succinate 50 mg PO DAILY 06/25/17 [History] Mometasone Furoate [Nasonex] 1 applic CURT DAILY 06/25/17 [History] Montelukast Sodium 10 mg PO DAILY 06/25/17 [History] Omeprazole 20 mg PO DAILY 06/25/17 [History] Ondansetron [Zofran ODT] 4 mg PO Q3H PRN 06/25/17 [History] Triamterene/Hydrochlorothiazid [Triamterene-HCTZ 37.5-25 MG] 0.5 tab PO DAILY [History] amLODIPine Besylate [Amlodipine Besylate] 10 mg PO DAILY 06/25/17 [History] traZODone 100 mg PO DAILY 06/25/17 [History] Acetaminophen/oxyCODONE [Percocet 325-10 MG] 1 tab PO TID 06/26/17 [History] Past Medical History HEENT History: Reports: Impaired Vision Other HEENT History: wears glasses Endocrine/Metabolic History: Reports: Other (See Below) Other Endocrine/Metabolic History: reported diabetic Social & Family History - Caffeine Use Caffeine Use: Reports: None Caffeine Use Comment: UNKNOWN, UNABLE TO OBTAIN ED ROS GENERAL - Review of Systems Review Of Systems: Unable To Obtain ED EXAM, NEURO - Physical Exam Exam: See Below Exam Limited By: Altered Mental Status (Alert but unable to follow commands. She is alert to place.) General Appearance: Alert, Mild Distress Eye Exam: Bilateral Eye: Normal Inspection, Nystagmus (None noted), PERRL, Other (No obvious nystagmus. Patient has a difficult time in all commands.) Ears: Hearing Grossly Normal Nose: Normal Inspection Throat/Mouth: Normal Voice, No Airway Compromise, Other (Per the right- sided facial droop has been present for years. She does have loss of the nasolabial fold on the right side. With smiling left side has facial droop present with tongue deviation to the left side as well.). No: Dysphagia Head Exam: Atraumatic, Normocephalic Neck: Normal Inspection, Supple, Non-Tender, Full Range of Motion Respiratory/Chest: No Respiratory Distress, Lungs Clear, Normal Breath Sounds, No Accessory Muscle Use, Chest Non-Tender Cardiovascular: Normal Peripheral Pulses, Regular Rate, Rhythm, No Murmur, Other (Shunt to the left chest.) GI/Abdominal: Normal Bowel Sounds, Soft, Non-Tender, No Organomegaly, No Distention Neurological: Alert, Other (Patient is having a difficult time and following commands. Left-sided weakness to the upper extremities noted. Unable to test for pronator just since the patient's noncooperative. No weakness discrepancy as to the lower extremities.) Back Exam: Normal Inspection Extremities: Normal Inspection, Normal Range of Motion, Non-Tender, Pedal Edema Psychiatric: Normal Affect, Normal Mood Skin Exam: Dry, Intact, Normal Color, Increased Warmth Course - Vital Signs Last Recorded V/S: Last Vital Signs Temp 101.3 F H 12/03/17 13:42 Pulse 113 H 12/03/17 12:44 Resp 20 12/03/17 12:44 BP 142/111 H 12/03/17 12:44 Pulse Ox 100 12/03/17 12:44 - Orders/Labs/Meds Orders: Active Orders 24 hr Category Date Time Status EKG 12 Lead [EKG Documentation Completion] [RC] STAT Care 12/03/17 12:22 Active Insert Urinary Catheter [OM.PC] Q24H Care 12/03/17 14:00 Ordered Urinary Catheter Assessment [RC] ASDIRECTED Care 12/03/17 14:01 Active CXR [Chest 1V Frontal] [CR] Stat Exams 12/03/17 12:21 Taken Head wo Cont [CT] Routine Exams 12/03/17 12:20 Taken CULTURE BLOOD [BC] Stat Lab 12/03/17 13:02 Ordered CULTURE BLOOD [BC] Stat Lab 12/03/17 13:20 Received CULTURE URINE [RM] Stat Lab 12/03/17 12:55 Received Blood Culture x2 Reflex Set [OM.PC] Stat Oth 12/03/17 13:02 Ordered Labs: Laboratory Tests 12/03/17 12/03/17 12/03/17 Range/Units 12:16 12:35 12:35 WBC 15.51 H (3.98-10.04) K/mm3 RBC 2.91 L (3.98-5.22) M/mm3 Hgb 8.4 L (11.2-15.7) gm/L Hct 25.6 L (34.1-44.9) % MCV 88.0 (79.4-94.8) fl MCH 28.9 (25.6-32.2) pg MCHC 32.8 (32.2-35.5) g/dl RDW Std Deviation 48.3 H (36.4-46.3) fL Plt Count 438 H (182-369) K/mm3 MPV 10.1 (9.4-12.3) fl Neutrophils % (Manual) 88 H (40-60) % Band Neutrophils % 4 (0-10) % Lymphocytes % (Manual) 4 L (20-40) % Atypical Lymphs % 0 % Monocytes % (Manual) 4 (2-10) % Eosinophils % (Manual) 0 L (0.7-5.8) % Basophils % (Manual) 0 L (0.1-1.2) Platelet Estimate Increased Hypochromasia 1+ slight RBC Morph Comment Not Reportable PT (9.5-12.1) SECONDS INR APTT (24-31) SECONDS Sodium 131 L (136-145) mEq/L Potassium 2.9 L (3.5-5.1) mEq/L Chloride 94 L (98-107) mEq/L Carbon Dioxide 27 (21-32) mEq/L Anion Gap 12.9 (5-15) BUN 21 H (7-18) mg/dL Creatinine 4.6 H (0.55-1.02) mg/dL Est Cr Clr Drug Dosing 9.26 mL/min Estimated GFR (MDRD) 9 (>60) mL/min BUN/Creatinine Ratio 4.6 L (14-18) Glucose 138 H (80-115) mg/dL POC Glucose 144 H (80-115) mg/dL Lactic Acid (0.4-2.0) mmol/L Calcium 8.2 L (8.5-10.1) mg/dL Total Bilirubin 0.3 (0.2-1.0) mg/dL AST 26 (15-37) U/L ALT 14 (14-59) U/L Alkaline Phosphatase 145 H (46-116) U/L CK-MB (CK-2) 1.2 (0-3.6) ng/ml Troponin I 0.680 H* (0.00-0.056) ng/mL C-Reactive Protein (<1.0) mg/dL Total Protein 6.5 (6.4-8.2) g/dl Albumin 2.4 L (3.4-5.0) g/dl Globulin 4.1 gm/dL Albumin/Globulin Ratio 0.6 L (1-2) TSH 3rd Generation (0.358-3.74) uIU/mL Urine Color (Yellow) Urine Appearance (Clear) Urine pH (5.0-8.0) Ur Specific [place] (1.005-1.030) Urine Protein (Negative) Urine Glucose (UA) (Negative) Urine Ketones (Negative) Urine Occult Blood (Negative) Urine Nitrite (Negative) Urine Bilirubin (Negative) Urine Urobilinogen (0.2-1.0) Ur Leukocyte Esterase (Negative) Urine RBC (0-5) /hpf Urine WBC (0-5) /hpf Ur Epithelial Cells (0-5) /hpf Amorphous Sediment (NOT SEEN) /hpf Urine Bacteria (FEW) /hpf Urine Mucus (FEW) /hpf 12/03/17 12/03/17 12/03/17 Range/Units 12:35 12:35 12:55 WBC (3.98-10.04) K/mm3 RBC (3.98-5.22) M/mm3 Hgb (11.2-15.7) gm/L Hct (34.1-44.9) % MCV (79.4-94.8) fl MCH (25.6-32.2) pg MCHC (32.2-35.5) g/dl RDW Std Deviation (36.4-46.3) fL Plt Count (182-369) K/mm3 MPV (9.4-12.3) fl Neutrophils % (Manual) (40-60) % Band Neutrophils % (0-10) % Lymphocytes % (Manual) (20-40) % Atypical Lymphs % % Monocytes % (Manual) (2-10) % Eosinophils % (Manual) (0.7-5.8) % Basophils % (Manual) (0.1-1.2) Platelet Estimate Hypochromasia RBC Morph Comment PT (9.5-12.1) SECONDS INR APTT (24-31) SECONDS Sodium (136-145) mEq/L Potassium (3.5-5.1) mEq/L Chloride (98-107) mEq/L Carbon Dioxide (21-32) mEq/L Anion Gap (5-15) BUN (7-18) mg/dL Creatinine (0.55-1.02) mg/dL Est Cr Clr Drug Dosing mL/min Estimated GFR (MDRD) (>60) mL/min BUN/Creatinine Ratio (14-18) Glucose (80-115) mg/dL POC Glucose (80-115) mg/dL Lactic Acid (0.4-2.0) mmol/L Calcium (8.5-10.1) mg/dL Total Bilirubin (0.2-1.0) mg/dL AST (15-37) U/L ALT (14-59) U/L Alkaline Phosphatase (46-116) U/L CK-MB (CK-2) (0-3.6) ng/ml Troponin I (0.00-0.056) ng/mL C-Reactive Protein 6.8 H* (<1.0) mg/dL Total Protein (6.4-8.2) g/dl Albumin (3.4-5.0) g/dl Globulin gm/dL Albumin/Globulin Ratio (1-2) TSH 3rd Generation 0.623 (0.358-3.74) uIU/mL Urine Color Yellow (Yellow) Urine Appearance Turbid H (Clear) Urine pH 7.5 (5.0-8.0) Ur Specific [place] 1.020 (1.005-1.030) Urine Protein 2+ H (Negative) Urine Glucose (UA) Negative (Negative) Urine Ketones Negative (Negative) Urine Occult Blood 3+ H (Negative) Urine Nitrite Negative (Negative) Urine Bilirubin 1+ H (Negative) Urine Urobilinogen 0.2 (0.2-1.0) Ur Leukocyte Esterase 3+ H (Negative) Urine RBC 0-5 (0-5) /hpf Urine WBC 20-30 H (0-5) /hpf Ur Epithelial Cells 50-75 H (0-5) /hpf Amorphous Sediment Moderate H (NOT SEEN) /hpf Urine Bacteria Moderate H (FEW) /hpf Urine Mucus Not seen (FEW) /hpf 12/03/17 12/03/17 Range/Units 13:20 13:55 WBC (3.98-10.04) K/mm3 RBC (3.98-5.22) M/mm3 Hgb (11.2-15.7) gm/L Hct (34.1-44.9) % MCV (79.4-94.8) fl MCH (25.6-32.2) pg MCHC (32.2-35.5) g/dl RDW Std Deviation (36.4-46.3) fL Plt Count (182-369) K/mm3 MPV (9.4-12.3) fl Neutrophils % (Manual) (40-60) % Band Neutrophils % (0-10) % Lymphocytes % (Manual) (20-40) % Atypical Lymphs % % Monocytes % (Manual) (2-10) % Eosinophils % (Manual) (0.7-5.8) % Basophils % (Manual) (0.1-1.2) Platelet Estimate Hypochromasia RBC Morph Comment PT 13.9 H (9.5-12.1) SECONDS INR 1.28 APTT 122 H* (24-31) SECONDS Sodium (136-145) mEq/L Potassium (3.5-5.1) mEq/L Chloride (98-107) mEq/L Carbon Dioxide (21-32) mEq/L Anion Gap (5-15) BUN (7-18) mg/dL Creatinine (0.55-1.02) mg/dL Est Cr Clr Drug Dosing mL/min Estimated GFR (MDRD) (>60) mL/min BUN/Creatinine Ratio (14-18) Glucose (80-115) mg/dL POC Glucose (80-115) mg/dL Lactic Acid 0.7 (0.4-2.0) mmol/L Calcium (8.5-10.1) mg/dL Total Bilirubin (0.2-1.0) mg/dL AST (15-37) U/L ALT (14-59) U/L Alkaline Phosphatase (46-116) U/L CK-MB (CK-2) (0-3.6) ng/ml Troponin I (0.00-0.056) ng/mL C-Reactive Protein (<1.0) mg/dL Total Protein (6.4-8.2) g/dl Albumin (3.4-5.0) g/dl Globulin gm/dL Albumin/Globulin Ratio (1-2) TSH 3rd Generation (0.358-3.74) uIU/mL Urine Color (Yellow) Urine Appearance (Clear) Urine pH (5.0-8.0) Ur Specific [place] (1.005-1.030) Urine Protein (Negative) Urine Glucose (UA) (Negative) Urine Ketones (Negative) Urine Occult Blood (Negative) Urine Nitrite (Negative) Urine Bilirubin (Negative) Urine Urobilinogen (0.2-1.0) Ur Leukocyte Esterase (Negative) Urine RBC (0-5) /hpf Urine WBC (0-5) /hpf Ur Epithelial Cells (0-5) /hpf Amorphous Sediment (NOT SEEN) /hpf Urine Bacteria (FEW) /hpf Urine Mucus (FEW) /hpf Meds: Medications Discontinued Medications Generic Name Dose Route Start Last Admin Trade Name Freq PRN Reason Stop Dose Admin Acetaminophen 650 mg 12/03/17 13:06 12/03/17 13:42 Tylenol RECTAL 12/03/17 13:07 650 mg NOW ONE Administration Sodium Chloride 1,000 mls @ 500 mls/hr 12/03/17 13:45 12/03/17 13:43 Normal Saline IV 500 mls/hr ASDIRECTED KVNG Administration Ceftriaxone Sodium 1 gm/ 100 mls @ 100 mls/hr 12/03/17 13:41 12/03/17 13:56 Sodium Chloride IV 12/03/17 14:40 100 mls/hr ONETIME ONE Administration Sodium Chloride 1,000 mls @ 250 mls/hr 12/03/17 15:00 Normal Saline IV ASDIRECTED KVNG Sodium Chloride 1,000 mls @ 150 mls/hr 12/03/17 15:00 12/03/17 14:57 Normal Saline IV 150 mls/hr ASDIRECTED KV[facility] Administration - Re-Assessments/Exams Free Text/Narrative Re-Assessment/Exam: Stroke Code Called. 1214 Initial assessment revealed left sided facial droop with left-sided weakness, facial droop with smiling, and tongue deviation to the left (not correlating). Per right sided facial droop is chronic. Patient was having difficulty with following instructions. She was alert and oriented to place but otherwise was confused. Last known well time approximately 6:30 a.m. today when she was complaining of nausea. Son did bring the patient into dialysis today and states the patient was not comprehending well. Patient is outside the 3.0 to 4.5 hr window for tPA therapy. 1228 I did speak to the patient's Haresh who is in the process of harvesting and will not come into the E.D. unless she gets worse. States the patient does not want aggressive treatment. States they never got around to completing documentation for this. I asked him to come in to speak with him in person about his 's care to which he states call him if she gets worse. In addition he was adamant the patient would not receive IV contrast. He was assured that the CT of the head does not require contrast. Patient was thrown into kidney failure after multiple CTs with contrast. BS 144. 1235 NIH score: 24 (Can't follow commands) 1239 Nursing staff has been in contact with the again. He is arranging a ride. 1300 per nursing staff patient's urine had a foul odor. Rectal temperature 101.3 Fahrenheit. Ordered blood cultures 2 and lactic acid. Ordered tylenol 650mg suppository. Per nursing staff blood pressure on the right arm and left arm had significant change. On the right arm patient's blood pressure 190/94. On the left arm he was documented 142/111. 1305 Chest x-ray reviewed with Dr. Espinoza: no acute findings noted. Suspects BP abnormalities to the r&l arms is related to the shunt to left chest obtructing vasculature. No findings on CXR suggesting widening mediastinum. No CTA will be obtained. CT of the head revealed no intracranial abnormalities. 1318 Blood pressure 168/80, heart rate 100, SPO2 status 100%. 1328 Reassessment, patient still confused having a difficult time with following commands. Weakness to the left upper extremity has improved. No substantial difference between the right arm. Unable to follow commands with pronator drift. She knows she's in [place] but otherwise cannot answer any further questions. Complains of pain to her lower back. Admits she has a history of UTIs. Pain to the suprapubic region with palpation. Patient has received 1 L of IV fluids prior to admission. Will start NS 500mls bolus. Will start 150mls/hr thereafter. Will be slow with IVF administration will place patient in heart failure if to aggressive. 2nd IV site will be started. In addition patient weighted 79.4 kgs today. Last dry weight was 79 kgs. 1333 Troponin 0.68. Will require trending. Elevated 2nd to dialysis. 12/03/17 13:43 Ordered rocephin 1 gram IV for urosepsis. Labs reviewed: White blood cell count 15.51, hemoglobin 8.4, platelet count 439 , differential is pending. Chemistry revealed sodium 131, potassium 2.9, BUN 21, creatinine 4.6, glucose 138, CK-MB 1.2, troponin 0.680 suspect elevated secondary to renal failure. UA turbid, 2+ protein, 3+ occult blood, bilirubin 1+, 2+ leukocyte E[place], urine wbc's 20-30, urine epithelial cells 50-75, moderate amorphous sediment, urine bacteria moderate. Urine culture has been ordered. requests transfer to [facility]. Patient will require transfer since she would require inpatient dialysis. [address] [place] network systems consultant Hospitalists at [facility]. He requests admission through the E.D. Spoke with Dr. Baron Brandt Physician. He has accepted the patient. Request clarification if will allow LP to rule meningitis due to altered loc and fever. 1425 I did call patients Haresh. He refuses LP be performed. I did call [facility] ER and spoke with Dr. Draper and advised him no LP per . 1429 [facility] will transporting patient. 1439 Notified Haresh patients she will be transported by [facility]. In addition discussed code status to clarify expectations. Patient will be a DNR/DNI per . 12/03/17 14:50 Ambulance has arrived for transfer. Patient is more alert still confused. Loss of the right nasolabial fold present chronic. No facial droop to the left side noted. No noticeable Weakness to the left upper extremity. Able to follow commands better. No tongue deviation noted. Departure - Departure Time of Disposition: 14:30 Disposition: Admitted As Inpatient 65 Condition: Poor Clinical Impression: Stroke-like symptoms Altered mental status Qualifiers: Altered mental status type: disorientation Qualified Code(s): R41.0 - Disorientation, unspecified Fever Qualifiers: Fever type: unspecified Qualified Code(s): R50.9 - Fever, unspecified UTI (urinary tract infection) Qualifiers: Urinary tract infection type: site unspecified Hematuria presence: with hematuria Qualified Code(s): N39.0 - Urinary tract infection, site not specified - Discharge Information Referrals: PCP,None [Primary Care Provider] - - My Orders Last 24 Hours: My Active Orders 12/03/17 12:20 Head wo Cont [CT] Routine 12/03/17 12:21 CXR [Chest 1V Frontal] [CR] Stat 12/03/17 12:22 EKG 12 Lead [EKG Documentation Completion] [RC] STAT 12/03/17 12:55 CULTURE URINE [RM] Stat 12/03/17 13:02 CULTURE BLOOD [BC] Stat Blood Culture x2 Reflex Set [OM.PC] Stat 12/03/17 13:20 CULTURE BLOOD [BC] Stat 12/03/17 14:00 Insert Urinary Catheter [OM.PC] Q24H 12/03/17 14:01 Urinary Catheter Assessment [RC] ASDIRECTED - Assessment/Plan Last 24 Hours: My Active Orders 12/03/17 12:20 Head wo Cont [CT] Routine 12/03/17 12:21 CXR [Chest 1V Frontal] [CR] Stat 12/03/17 12:22 EKG 12 Lead [EKG Documentation Completion] [RC] STAT 12/03/17 12:55 CULTURE URINE [RM] Stat 12/03/17 13:02 CULTURE BLOOD [BC] Stat Blood Culture x2 Reflex Set [OM.PC] Stat 12/03/17 13:20 CULTURE BLOOD [BC] Stat 12/03/17 14:00 Insert Urinary Catheter [OM.PC] Q24H 12/03/17 14:01 Urinary Catheter Assessment [RC] ASDIRECTED
[2017-12-03] MEDS ORDERED: Acetaminophen 650 MG Supp RECTAL ONE (13:06)
[2017-12-03] MEDS ORDERED: cefTRIAXone 1 GM in Sodium Chloride 0.9% 100 ML IV ONE (13:41)
[2017-12-03] MEDS ORDERED: Sodium Chloride 0.9% 1,000 ML IV SCH ×3 (13:45→15:00)
--- NOTE | 2017-12-05 09:21 | CT ---
Head CT Technique: Multiple axial sections through the brain were obtained. Intravenous contrast was not utilized. Comparison: Prior head CT exam of 06/25/17. Findings: Ventricles along with basal cisterns and sulci over the convexities are mildly prominent. Diminished density noted within portions of the periventricular white matter compatible with small vessel ischemic demyelination change. No other abnormal parenchymal densities are seen. No evidence of intracranial hemorrhage. No midline shift or mass effect is seen. Atherosclerotic calcification noted within the vertebral vessel and within the carotid siphon. Visualized sinuses are clear. No acute calvarial abnormality is seen. Impression: 1. Nothing acute is seen on noncontrast head CT study. Study is without significant change from previous exam. Diagnostic code #2 I agree with preliminary report from [facility], finalized at 12/03/17, 1:44 PM Central Time
--- NOTE | 2017-12-05 09:21 | CR ---
Chest: Portable view of the chest was obtained. Comparison: No prior study. Dialysis catheter is seen entering from the left side. Heart size appears at the upper limits of normal. Tortuous thoracic aorta is seen. Lungs are clear without acute parenchymal change. Calcification is seen within the right rotator cuff compatible with calcific tendinitis. Impression: 1. Incidental findings. Nothing acute is seen. Diagnostic code #2
== END 2017-12-03 15:28 | disposition critical access hospital (66) ==
LOC: JD.ED 12:13
DX: N39.0 Urinary tract infection, site not specified (principal); R41.0 Disorientation, unspecified; R29.818 Other symptoms and signs involving the nervous system; Z88.8 Allergy status to other drugs, medicaments and biological substances; Z91.041 Radiographic dye allergy status; Z79.82 Long term (current) use of aspirin; Z79.899 Other long term (current) drug therapy
CPT/HCPCS: 36415; 70450; 71045; 80053; 81001; 82553; 82962; 83605; 84443; 84484; 85007; 85027; 85610; 85730; 86140; 87040; 87086; 87088; 87186; 93005; 96361; 96365; 99285; A9270; J0696; J7030; J7040; 87077

== ENCOUNTER 2017-12-08 21:57 | Emergency (ER) | payer MEDICARE, OTHER ==
[2017-12-08] MEDS ORDERED: cefTRIAXone 1 GM in Sodium Chloride 0.9% 100 ML IV ONE (23:47)
[2017-12-09] MEDS ORDERED: cefTRIAXone 1 GM in Sodium Chloride 0.9% 100 ML IV ONE (00:07)
--- NOTE | 2017-12-09 00:21 | EDM.PDOC ---
ED HPI GENERAL MEDICAL PROBLEM - General Chief Complaint: Neuro Symptoms/Deficits Stated Complaint: [facility] Time Seen by Provider: 12/08/17 22:03 - Related Data Allergies Allergy/AdvReac Type Severity Reaction Status Date / Time atorvastatin [From Lipitor] Allergy Hives Verified 06/25/17 13:48 dipyridamole Allergy Anaphylactic Verified 06/25/17 13:48 [From Persantine] Shock Iodinated Contrast- Oral and Allergy Renal Verified 12/03/17 12:24 IV Dye Failure mold Allergy Airway Verified 06/25/17 13:48 Tightness isosorbide [From Imdur] AdvReac Headache Verified 06/26/17 07:42 morphine AdvReac Nausea Verified 06/26/17 07:42 nitrofurantoin AdvReac Diarrhea Verified 06/26/17 07:42 [From Macrodantin] omeprazole [From Prilosec] AdvReac Chills Verified 06/26/17 07:42 Home Meds: Home Meds Liraglutide [Victoza] 0.6 mg SUBCUT DAILY 06/25/17 [History] Lisinopril 20 mg PO DAILY 06/25/17 [History] Acetaminophen [Tylenol] 650 mg PO Q4H PRN 12/08/17 [History] Albuterol [Proventil HFA] 2 puff INH Q12H PRN 12/08/17 [History] Aspirin [Halfprin] 162 mg PO DAILY 12/08/17 [History] Calcium Acetate 500 mg PO TID PRN 12/08/17 [History] [place]/Min Oil/Alycia/Wool Alcoh [Eucerin Creme] 1 applic TOP BID PRN 12/08/17 [ History] Ciprofloxacin HCl [Cipro] 250 mg PO BID 12/08/17 [History] Cyanocobalamin (Vitamin B-12) [Vitamin B-12] 1,000 mcg PO DAILY 12/08/17 [ History] Ferrous Sulfate 325 mg PO DAILY 12/08/17 [History] Fluticasone/Salmeterol [Advair 500-50] 1 puff INH BID 12/08/17 [History] Gabapentin [Neurontin] 400 mg PO DAILY 12/08/17 [History] Insulin Glarg,Human.Rec.Analog [Lantus Solostar] 4 unit INJECT DAILY 12/08/17 [ History] Liraglutide [Victoza] 1.2 ml INJECT DAILY 12/08/17 [History] Magnesium 200 mg PO DAILY 12/08/17 [History] Menthol/Zinc Oxide [Calmoseptine] 1 applic TOP TID 12/08/17 [History] Mirtazapine 30 mg PO BEDTIME 12/08/17 [History] Montelukast [Singulair] 0 mg PO DAILY 12/08/17 [History] Omeprazole 20 mg PO DAILY 12/08/17 [History] Ondansetron [Zofran ODT] 4 mg PO Q4H PRN 12/08/17 [History] Potassium Chloride [Potassium Chloride Solution] 7.5 mg PO DAILY 12/08/17 [ History] Warfarin [Coumadin] 2 mg PO DAILY 12/08/17 [History] amLODIPine Besylate [Norvasc] 10 mg PO DAILY 12/08/17 [History] cloNIDine [Catapres] 0.1 mg PO BID 12/08/17 [History] hydrALAZINE [Apresoline] 0 mg PO Q8H 12/08/17 [History] levETIRAcetam [Keppra] 250 mg PO DAILY 12/08/17 [History] oxyCODONE HCl/Acetaminophen [Percocet 10-325 mg Tablet] 10 - 325 mg PO Q8H PRN 12/08/17 [History] traMADol HCl [Tramadol HCl] 50 mg PO Q12H PRN 12/08/17 [History] traZODone HCl [Trazodone HCl] 100 mg PO BEDTIME 12/08/17 [History] Past Medical History HEENT History: Reports: Impaired Vision Other HEENT History: wears glasses Genitourinary History: Reports: Dialysis Musculoskeletal History: Reports: Back Pain, Chronic Endocrine/Metabolic History: Reports: Other (See Below) Other Endocrine/Metabolic History: reported diabetic Social & Family History - Family History Family Medical History: Unobtainable - Tobacco Use Smoking Status *Q: Unknown Ever Smoked - Caffeine Use Caffeine Use: Reports: None Caffeine Use Comment: UNKNOWN, UNABLE TO OBTAIN ED ROS GENERAL - Review of Systems Review Of Systems: See Below ED EXAM, NEURO - Physical Exam Exam: See Below Course - Vital Signs Last Recorded V/S: Last Vital Signs Temp 39.3 C H 12/09/17 00:35 Pulse 117 H 12/08/17 22:33 Resp 24 H 12/08/17 22:33 BP 133/103 H 12/08/17 22:33 Pulse Ox 95 12/08/17 22:33 - Orders/Labs/Meds Orders: Active Orders 24 hr Category Date Time Status EKG Documentation Completion [RC] ASDIRECTED Care 12/08/17 23:02 Active Glucose [Blood Glucose Check, Bedside] [RC] ONETIME Care 12/08/17 22:08 Active Head wo Cont [CT] Stat Exams 12/08/17 22:06 Taken CULTURE BLOOD [BC] Stat Lab 12/08/17 23:50 Received CULTURE BLOOD [BC] Stat Lab 12/08/17 23:50 Received UA W/MICROSCOPIC [URIN] Stat Lab 12/08/17 23:08 Ordered Blood Culture x2 Reflex Set [OM.PC] Stat Oth 12/08/17 23:49 Ordered EKG 12 Lead [EK] Stat Ther 12/08/17 23:01 Ordered Labs: Laboratory Tests 12/08/17 12/08/17 12/08/17 Range/Units 22:04 22:06 22:06 WBC 9.05 (3.98-10.04) K/mm3 RBC 3.76 L (3.98-5.22) M/mm3 Hgb 11.0 L (11.2-15.7) gm/L Hct 34.0 L (34.1-44.9) % MCV 90.4 (79.4-94.8) fl MCH 29.3 (25.6-32.2) pg MCHC 32.4 (32.2-35.5) g/dl RDW Std Deviation 53.1 H (36.4-46.3) fL Plt Count 340 (182-369) K/mm3 MPV 10.3 (9.4-12.3) fl Neut % (Auto) 68.7 (34.0-71.1) % Lymph % (Auto) 20.2 (19.3-51.7) % [place] % (Auto) 8.2 (4.7-12.5) % Eos % (Auto) 1.1 (0.7-5.8) Baso % (Auto) 1.5 H (0.1-1.2) % Neut # (Auto) 6.21 H (1.56-6.13) K/mm3 Lymph # (Auto) 1.83 (1.18-3.74) K/mm3 [place] # (Auto) 0.74 H (0.24-0.36) K/mm3 Eos # (Auto) 0.10 (0.04-0.36) K/mm3 Baso # (Auto) 0.14 H (0.01-0.08) K/mm3 Manual Slide Review Abnormal smear PT (9.5-12.1) SECONDS INR APTT (24-31) SECONDS Sodium 135 L (136-145) mEq/L Potassium 4.4 (3.5-5.1) mEq/L Chloride 99 (98-107) mEq/L Carbon Dioxide 28 (21-32) mEq/L Anion Gap 12.4 (5-15) BUN 10 (7-18) mg/dL Creatinine 3.3 H (0.55-1.02) mg/dL Est Cr Clr Drug Dosing 12.90 mL/min Estimated GFR (MDRD) 14 (>60) mL/min BUN/Creatinine Ratio 3.0 L (14-18) Glucose 112 (80-115) mg/dL POC Glucose 103 (80-115) mg/dL Calcium 8.4 L (8.5-10.1) mg/dL Total Bilirubin 0.4 (0.2-1.0) mg/dL AST 38 H (15-37) U/L ALT 16 (14-59) U/L Alkaline Phosphatase 108 (46-116) U/L Troponin I 0.573 H* (0.00-0.056) ng/mL Total Protein 6.5 (6.4-8.2) g/dl Albumin 2.2 L (3.4-5.0) g/dl Globulin 4.3 gm/dL Albumin/Globulin Ratio 0.5 L (1-2) Urine Color (Yellow) Urine Appearance (Clear) Urine pH (5.0-8.0) Ur Specific [place] (1.005-1.030) Urine Protein (Negative) Urine Glucose (UA) (Negative) Urine Ketones (Negative) Urine Occult Blood (Negative) Urine Nitrite (Negative) Urine Bilirubin (Negative) Urine Urobilinogen (0.2-1.0) Ur Leukocyte Esterase (Negative) Urine RBC (0-5) /hpf Urine WBC (0-5) /hpf Urine WBC Clumps (NOT SEEN) /hpf Ur Epithelial Cells (0-5) /hpf Urine Bacteria (FEW) /hpf Hyaline Casts (0-5) /lpf Urine Mucus (FEW) /hpf 12/08/17 12/08/17 Range/Units 22:06 23:08 WBC (3.98-10.04) K/mm3 RBC (3.98-5.22) M/mm3 Hgb (11.2-15.7) gm/L Hct (34.1-44.9) % MCV (79.4-94.8) fl MCH (25.6-32.2) pg MCHC (32.2-35.5) g/dl RDW Std Deviation (36.4-46.3) fL Plt Count (182-369) K/mm3 MPV (9.4-12.3) fl Neut % (Auto) (34.0-71.1) % Lymph % (Auto) (19.3-51.7) % [place] % (Auto) (4.7-12.5) % Eos % (Auto) (0.7-5.8) Baso % (Auto) (0.1-1.2) % Neut # (Auto) (1.56-6.13) K/mm3 Lymph # (Auto) (1.18-3.74) K/mm3 [place] # (Auto) (0.24-0.36) K/mm3 Eos # (Auto) (0.04-0.36) K/mm3 Baso # (Auto) (0.01-0.08) K/mm3 Manual Slide Review PT 15.9 H (9.5-12.1) SECONDS INR 1.47 APTT 31 (24-31) SECONDS Sodium (136-145) mEq/L Potassium (3.5-5.1) mEq/L Chloride (98-107) mEq/L Carbon Dioxide (21-32) mEq/L Anion Gap (5-15) BUN (7-18) mg/dL Creatinine (0.55-1.02) mg/dL Est Cr Clr Drug Dosing mL/min Estimated GFR (MDRD) (>60) mL/min BUN/Creatinine Ratio (14-18) Glucose (80-115) mg/dL POC Glucose (80-115) mg/dL Calcium (8.5-10.1) mg/dL Total Bilirubin (0.2-1.0) mg/dL AST (15-37) U/L ALT (14-59) U/L Alkaline Phosphatase (46-116) U/L Troponin I (0.00-0.056) ng/mL Total Protein (6.4-8.2) g/dl Albumin (3.4-5.0) g/dl Globulin gm/dL Albumin/Globulin Ratio (1-2) Urine Color Yellow (Yellow) Urine Appearance Cloudy H (Clear) Urine pH 8.5 H (5.0-8.0) Ur Specific [place] 1.020 (1.005-1.030) Urine Protein 2+ H (Negative) Urine Glucose (UA) Negative (Negative) Urine Ketones Negative (Negative) Urine Occult Blood 2+ H (Negative) Urine Nitrite Negative (Negative) Urine Bilirubin Negative (Negative) Urine Urobilinogen 0.2 (0.2-1.0) Ur Leukocyte Esterase 3+ H (Negative) Urine RBC 5-10 H (0-5) /hpf Urine WBC >100 H (0-5) /hpf Urine WBC Clumps Few (NOT SEEN) /hpf Ur Epithelial Cells 5-10 H (0-5) /hpf Urine Bacteria Many H (FEW) /hpf Hyaline Casts 0-5 (0-5) /lpf Urine Mucus Not seen (FEW) /hpf Meds: Medications Discontinued Medications Generic Name Dose Route Start Last Admin Trade Name Freq PRN Reason Stop Dose Admin Acetaminophen 650 mg 12/09/17 00:23 12/09/17 00:35 Tylenol RECTAL 12/09/17 00:24 650 mg ONETIME ONE Administration Ceftriaxone Sodium 1 gm/ 100 mls @ 200 mls/hr 12/09/17 00:07 12/09/17 00:28 Sodium Chloride IV 12/09/17 00:36 200 mls/hr ONETIME ONE Administration Departure - Departure Time of Disposition: 00:41 Disposition: DC/Tfer to Acute Hospital 02 Condition: Poor Clinical Impression: UTI (urinary tract infection) Qualifiers: Urinary tract infection type: acute cystitis Hematuria presence: without hematuria Qualified Code(s): N30.00 - Acute cystitis without hematuria Sepsis Qualifiers: Sepsis type: sepsis due to unspecified organism Qualified Code(s): A41.9 - Sepsis, unspecified organism - Discharge Information Referrals: PCP,Unknown [Primary Care Provider] - Forms: ED Department Discharge - My Orders Last 24 Hours: My Active Orders 12/08/17 22:06 Head wo Cont [CT] Stat 12/08/17 22:08 Glucose [Blood Glucose Check, Bedside] [RC] ONETIME 12/08/17 23:01 EKG 12 Lead [EK] Stat 12/08/17 23:02 EKG Documentation Completion [RC] ASDIRECTED 12/08/17 23:08 UA W/MICROSCOPIC [URIN] Stat 12/08/17 23:49 Blood Culture x2 Reflex Set [OM.PC] Stat 12/08/17 23:50 CULTURE BLOOD [BC] Stat CULTURE BLOOD [BC] Stat - Assessment/Plan Last 24 Hours: My Active Orders 12/08/17 22:06 Head wo Cont [CT] Stat 12/08/17 22:08 Glucose [Blood Glucose Check, Bedside] [RC] ONETIME 12/08/17 23:01 EKG 12 Lead [EK] Stat 12/08/17 23:02 EKG Documentation Completion [RC] ASDIRECTED 12/08/17 23:08 UA W/MICROSCOPIC [URIN] Stat 12/08/17 23:49 Blood Culture x2 Reflex Set [OM.PC] Stat 12/08/17 23:50 CULTURE BLOOD [BC] Stat CULTURE BLOOD [BC] Stat
[2017-12-09] MEDS ORDERED: Acetaminophen 650 MG Supp RECTAL ONE (00:23)
--- NOTE | 2017-12-10 07:27 | ER ---
REASON FOR EMERGENCY ROOM VISIT: Altered mental status. HISTORY OF PRESENT ILLNESS: This 67-year-old diabetic, on hemodialysis, was brought into the emergency room for the same reason. She was brought in here on 12/03/2017, namely that she has had an altered mental status. She was recently discharged from [facility] in [place] following a stay in which she was worked up for altered mental status thought to be due to a stroke. Because she was a dialysis patient, she was transferred there from here after a workup including CT scan did not reveal any re-explanation for her findings. While she was in the hospital in [place], her workup consisted of an MRI and she also was treated for urosepsis but not until the day she was discharged at which time she was given a prescription for ciprofloxacin. She was discharged two days ago. This morning, her felt that she was relatively normal and he set out to do his normal field work, which he had been gone all day. When he returned, she had yet again another episode of poor responsiveness and altered mental status and it sounds like those symptoms are identical to that which she had on 12/03/2017. She was brought in by ambulance and she was poorly responsive. I am not certain as to whether or not she has been taking her ciprofloxacin. PAST MEDICAL HISTORY: See EMR. CURRENT MEDICATIONS: Reviewed. See EMR. PHYSICAL EXAMINATION: She did answer yes and no a couple of times and on one occasion, when I walked into the room to talk to her, I asked her how she was doing and she said "I am okay" but then she failed to answer any questions or focus on me when I was talking to her. VITAL SIGNS: Initial: Temperature is 38.5, blood pressure 133/103, pulse is 117, respiratory rate is 24, O2 saturations 95% on 2 L of oxygen by nasal canula. HEENT: Head is atraumatic. TMs: No hemotympanum. Pupils equally round and reactive to light. NECK: Supple. No bruits are heard. CHEST: Clear to auscultation. She does have a left subclavian catheter in place. CARDIAC: Regular rate without murmur. ABDOMEN: Nondistended, soft, and nontender. EXTREMITIES: Feet and hands are pink and warm. NEUROLOGIC: She does have a weak capacity management specialist bilaterally and does move her feet to commands but only very weakly. SENSATION: Does appear to be intact to touch, but this is difficult because she communicates poorly. There is no facial asymmetry noted. COURSE IN THE EMERGENCY ROOM: Further emergency room course: She underwent a CT scan as per stroke protocol and this only showed evidence of old basal ganglia infarcts, but no acute changes. She was started on 2 g of Rocephin. I spoke to Dr. Kate, hospitalist at [facility] who agreed to take the patient in transfer. LABORATORY DATA: See EMR - reviewed The presumptive diagnosis is that she experienced an episode of urosepsis, which could explain her mental status changes as well. She will be transferred by ground ambulance to [facility] and Dr. Kate agrees with this plan. At this point, we have not yet contacted the patient's to inform him of developments. RENÉE /[id number] JESSICA
--- NOTE | 2017-12-12 09:15 | CT ---
Head CT Technique: Multiple axial sections through the brain were obtained. Intravenous contrast was not utilized. Comparison: Prior head CT study of 12/03/17. Findings: Ventricles along with basal cisterns and sulci over the convexities are mildly prominent. Diminished density is noted within portions of the periventricular white matter compatible with small vessel ischemic demyelination change. No other abnormal parenchymal densities are seen. No evidence of intracranial hemorrhage. No midline shift or mass effect is seen. Bone window settings were reviewed which show no discrete calvarial abnormality. Visualized sinuses are clear. Atherosclerotic calcification is noted within the carotid siphon. Impression: 1. Senescent change as noted above. 2. No acute intracranial abnormality is identified. No appreciable change is seen from previous study. Diagnostic code #2 I agree with preliminary report issued by [employer] ([facility] preliminary report dictated on 12/08/17, 11:25 AM Central Time)
== END 2017-12-09 01:19 ==
LOC: JD.ED 21:57
DX: A41.9 Sepsis, unspecified organism (principal); N30.00 Acute cystitis without hematuria; Z79.01 Long term (current) use of anticoagulants; Z79.899 Other long term (current) drug therapy; Z88.8 Allergy status to other drugs, medicaments and biological substances
CPT/HCPCS: 36415; 70450; 80053; 81001; 82962; 84484; 85025; 85610; 85730; 87040; 93005; 96365; 99285; A9270; J0696; J7030